=== PATIENT | male | born 1970 | race Caucasian/White ===

== ENCOUNTER 2019-10-12 10:19 | Outpatient (CLI) | payer MEDICARE, MEDICAID, SELFPAY | END 2019-10-12 10:39 | PROVIDERS: PCP Internal Medicine; Visit Provider Nurse Practitioner Family | DX: F11.19 Opioid abuse with unspecified opioid-induced disorder (principal); R94.31 Abnormal electrocardiogram [ECG] [EKG]; I25.2 Old myocardial infarction | CPT/HCPCS: 93005; 93010 ==

== ENCOUNTER 2019-12-29 00:28 | Emergency (ER) | payer MEDICARE, MEDICAID, SELFPAY ==
[2019-12-29 00:43] VITALS: BP 158/85; PULSE 50; RESP 16; TEMP 36.7; O2SAT 100
--- NOTE | 2019-12-29 00:55 | W.ED.GENAD ---
Discharge Plan Disposition Patient Disposition: HOME Condition: Good Discharge Details Chief Complaint: Headache Clinical Impression: Migraine, Headache Primary Care Provider: Otis Irwin ED Provider: Agapito Maynard Home Meds and New Rx's Prescriptions: Continued sumatriptan succinate 100 mg tablet 100 mg PO PRN PRN (Reason: Headache) RF: 0 methadone 10 mg Tablet 115 mg PO DAILY RF: 0 Discharge Instructions Instructions: General Headache (ED) Additional Instructions: At this time your headache seems consistent with prior migraines. As it has resolved this is reassuring. However if at any point you do change your mind we can always perform the CT scan we discussed together. Please drink plenty fluids at home. Avoid preserved meats. If you notice any worsening of your symptoms, or any new symptoms such as vomiting, diarrhea, fever, chills, shortness of breath, chest pain, numbness, weakness, or fainting , please return immediately to the emergency department for reevaluation. Please follow up with your primary care provider as soon as possible for reassessment and reevaluation. As always, it was a pleasure participating in your medical care today. Referrals: Otis Irwin [Primary Care Provider] - Medical Decision Making 49-year-old male with a past medical history of cluster headaches, who takes sumatriptan, who states that he has had an extensive work-up for his headaches in the past, presents today for evaluation of headache. Patient states that this evening headache came on, it was not thunderclap, but it did come on rather quickly which she states is classic for his headaches. Made worse with light and loud noise. Improved by nothing. He describes it as pain on the right side of his head. Symptoms began just an hour or so ago. Symptoms not relieved by medication at home. The patient denies any headache red flags of worst headache of life, thunderclap headache, neck pain, fever, chills, concerning family history of polycystic kidney disease, Marfan syndrome, Nayan-Danlos syndrome, abdominal aortic aneurysm, aortic dissection, or intracranial aneurysm. Patient states that this headache is identical to previous headaches. Physical exam demonstrates no nuchal rigidity, no clinical evidence of meningitis. No concerning red flags. No neurologic deficits. Although the patient states that he has had multiple recent imaging studies, I cannot find any here. I did discuss imaging options for the patient and at this time through notable discussion, weighing the risks and benefits, and a shared decision making process the patient has refused imaging at this time. Patient is of an appropriate age to make decisions. The patient is of sound mind, appears clinically sober, and has capacity to make decisions by my clinical exam. The patient made it exquisitely clear that he feels that his symptoms are consistent with his normal headaches and he does not require repeat imaging of the multiple images he has had in the past. Respecting the patient's wishes we will hold off on imaging. Currently signs and symptoms appear clinically inconsistent with intracranial bleed, aneurysm, meningitis. Signs and symptoms are clinically consistent with migraine headache. 1:43 AM Patient has complete resolution of his symptoms. Repeat neurologic exam shows no focal neurologic deficits. Patient requesting to go home. Patient will be discharged. Signs and symptoms clinically consistent with migraine headache inconsistent with acute life-threatening intracranial etiology. I have extensively reviewed the treatment plan and discharge instructions with the patient. I have addressed all patient concerns at this time. The patient was made aware of what symptoms to monitor for that would warrant a return to the emergency department. Discussed the plan with the patient, they demonstrate verbal understanding and agreement with our assessment and plan at this time. HPI General Date/Time Provider Initiated Documentation: 12/29/19 00:40. HPI Narrative: 49-year-old male with a past medical history of cluster headaches, who takes sumatriptan, who states that he has had an extensive work-up for his headaches in the past, presents today for evaluation of headache. Patient states that this evening headache came on, it was not thunderclap, but it did come on rather quickly which she states is classic for his headaches. Made worse with light and loud noise. Improved by nothing. He describes it as pain on the right side of his head. Symptoms began just an hour or so ago. Symptoms not relieved by medication at home. The patient denies any headache red flags of worst headache of life, thunderclap headache, neck pain, fever, chills, concerning family history of polycystic kidney disease, Marfan syndrome, Nayan-Danlos syndrome, abdominal aortic aneurysm, aortic dissection, or intracranial aneurysm. Patient states that this headache is identical to previous headaches. Related Data Home Medications Medication Instructions Recorded Confirmed methadone 115 mg PO DAILY 12/29/19 12/29/19 sumatriptan succinate 100 mg PO PRN PRN 12/29/19 12/29/19 Allergies Allergy/AdvReac Type Severity Reaction Status Date / Time No Known Allergies Allergy Unverified 12/29/19 00:46 General Stated Complaint: Headache KERA: 3 Review of Systems All systems reviewed & are unremarkable except as noted in HPI and below PFSH Social History Smoking/Tobacco Use Status: Current-Occasional Alcohol Intake: former Substance use type: former substance user Do you feel safe at home: Yes Do you feel safe in your relationship?: Yes Exam Narrative Exam Narrative: 1.Const: Well-nourished, Well-developed, appearing stated age 2.Eyes: PERRL, no conjunctival injection, and symmetrical lids. 3.ENT: Atraumatic external nose and ears. Moist MM. Neck: Symmetric, trachea midline, No thyromegaly. Patient demonstrates good movement of cervical neck. There is no nuchal rigidity, no nuchal tenderness. Patient is able to flex the neck without any difficulty or significant pain. Negative Kernig's and Brudzinski sign. 4.CVS: +S1/S2, No murmurs or gallops. Peripheral pulses 2+ and equal in all extremities. Brisk capillary refill in all extremities. 5.RESP: Unlabored respiratory effort. Clear to auscultation bilaterally. No wheezes rales or rhonchi 6.GI: Soft, Nontender/Nondistended, No hepatosplenomegaly. No guarding or rebound. 7.MSK: Normocephalic/Atraumatic, Extremities w/o deformity or ttp No cyanosis or clubbing, Normal movement of all extremities 8.Skin: Warm, Dry. No rashes or lesions. 9.Neuro: community organization aide II-XII grossly intact. Sensation grossly intact, no focal neurologic deficits. All 6 cardinal planes of vision are fully intact. No evidence of rotatory or vertical nystagmus. The patient demonstrated a normal fjfzbr-gjny-rhpxnp, good dexterity. There was no evidence of dysdiadochokinesia. Patient was able to ambulate without difficulty. There was no wide-based gait. Romberg testing was normal. Wsdu-vs-lliv testing was normal. Sensation was intact bilaterally as well as muscle strength bilaterally for all extremities. Patient was able to verbalize butter cup with no slurring, or miss pronunciation. 10.Psych: (AAO) x3. Appropriate mood and affect Course Vital Signs Vital signs: Vital Signs Temperature 36.7 C 12/29/19 00:43 Pulse 50 L 12/29/19 00:43 Respiratory Rate 16 12/29/19 00:43 Blood Pressure 158/85 H 12/29/19 00:43 Pulse Oximetry 100 12/29/19 00:43 Temperature 36.7 C 12/29/19 00:43 Temperature Source Temporal Artery Scan 12/29/19 00:43 Pulse 50 L 12/29/19 00:43 Respiratory Rate 16 12/29/19 00:43 Blood Pressure 158/85 H 12/29/19 00:43 Blood Pressure Position Sitting 12/29/19 00:43 Pulse Oximetry 100 12/29/19 00:43 Oxygen Delivery Method Room Air 12/29/19 00:43 Oxygen Flow Rate 0 12/29/19 00:43 Pain Level 8 12/29/19 00:43
[2019-12-29] MEDS: Normal Saline 1,000 ML 1000 ML IV (00:57)
[2019-12-29] MEDS: Ketorolac 30 MG/ML VIAL IVP (00:57)
[2019-12-29] MEDS: diphenhydrAMINE 50 MG/ML VIAL 25 MG IVP (00:59)
[2019-12-29] MEDS: methylPREDNISolone SUCC 125 MG VIAL IVP (01:01)
[2019-12-29] MEDS: Prochlorperazine 10 MG/2 ML VIAL IVP (01:02)
[2019-12-29 01:45] VITALS: PULSE 60; RESP 16; O2SAT 99
== END 2019-12-29 01:47 | disposition home or self-care (01) ==
PROVIDERS: Emergency Provider Student in an Organized Health Care Education/Training Program; PCP Internal Medicine
DX: G43.909 Migraine, unspecified, not intractable, without status migrainosus (principal)
CPT/HCPCS: 96361; 96374; 96375; 99284; 99283; J0780; J1200; J1885; J2930

== ENCOUNTER 2021-06-16 14:37 | Emergency (ER) | payer MEDICARE, MEDICAID, SELFPAY ==
[2021-06-16] VITALS (42 sets, daily range): BP systolic 91–141; BP diastolic 51–75; PULSE 39–61; RESP 8–24; TEMP 36.5–36.8; O2SAT 93–100
--- NOTE | 2021-06-16 14:30 | RT.EKG_ITS ---
APPROVED REPORT Exam: Resting ECG Reason for Exam: chest pain Patient Location: E HR:56 bpm ECG Measurements Heart Rate 56 AXIS FL 142 P 63 QRSd 80 QRS 54 QT 450 T 56 QTc 434 Conclusion Sinus bradycardia...rate< 60. Sinus. No STEMI. I have reviewed and interpreted ECG and agree with software generated interpretation.
--- NOTE | 2021-06-16 14:45 | RT.EKG_ITS ---
APPROVED REPORT Exam: Resting ECG Reason for Exam: [facility] Patient Location: E HR:45 bpm ECG Measurements Heart Rate 45 AXIS AZ 167 P 52 QRSd 81 QRS 59 QT 510 T 58 QTc 428 Conclusion Sinus bradycardia...rate< 60 Atrial premature complex...SV complex w/ short R-R interval. Sinus. No STEMI. I have reviewed and interpreted ECG and agree with software generated interpretation.
[2021-06-16 15:15] LABS: Abs Immature Grans 0.01 10^3/uL (0.0-0.06); Absolute Basophil Count 0.04 10^3/uL (0.0-0.2); Absolute Eosinophil Count 0.17 10^3/uL (0.0-0.7); Absolute Monocyte Count 0.43 10^3/uL (0.1-0.8); Absolute Neutrophil Count 4.17 10^3/uL (1.2-6.7); Basophils % 0.6; Eosinophils % 2.6; HGB 12.7 g/dL (13.5-17.5); Immature Grans % 0.2; Lymphocytes % 27.2; MCH 30.3 pg (27.0-33.0); MCHC 32.6 % (32.0-36.0); MCV 93.1 fL (80-95); MPV 10.4 fL (8.0-11.0); Monocytes % 6.5; Neutrophils % 62.9; Nucleated RBC 0 %; Platelet Count 169 10^3/uL (130-400); RBC 4.19 10^6/uL (4.36-5.78); RDW-SD 41.6 fL; WBC 6.62 10^3/uL (4.4-10.8)
[2021-06-16 15:27] LABS: ALT 23 U/L (16-63); AST 26 U/L (15-37); Albumin 3.7 g/dL (3.4-5.0); Alkaline Phosphatase 81 U/L (46-116); Anion Gap 7.2 mmol/L (3-11); BUN 12 mg/dL (7-18); Bilirubin, Total 0.2 mg/dL (0.2-1.0); CO2 30.8 mmol/L (21.0-32.0); CREATININE 0.9 mg/dL (0.70-1.30); Calcium 8.8 mg/dL (8.5-10.1); Chloride 103 mmol/L (98-107); Glucose 121 mg/dL (74-106); Magnesium 2.1 mg/dL (1.8-2.4); Potassium 3.8 mmol/L (3.5-5.1); Sodium 141 mmol/L (136-145); Total Protein 7.5 g/dL (6.4-8.2); Troponin I < 50 ng/L (<or=60)
[2021-06-16] MEDS: ACETAMINOPHEN 1,000 MG/100 ML BTL 400 MG IVPB (15:37)
--- NOTE | 2021-06-16 15:41 | NUR.NOTE ---
pt not wanting to wait around for additional testing and evaluation provider aware Nursing Note:
[2021-06-16 15:54] LABS: D-Dimer 619 ng/mlFEU (<500)
--- NOTE | 2021-06-16 16:00 | DI.CT_ITS ---
Exam(s) CT CHEST PE CTA EXAM: CT CHEST PE CTA CLINICAL HISTORY: left chest pain. TECHNIQUE: Imaging Protocol: Axial CT angiography was performed with multi-slice acquisition and mu lti-planar and/or 3D reconstructions. CONTRAST MATERIAL: Intravenous: Omnipaque 350 Contrast volume:100 cc COMPARISON: No exams were available for comparison FINDINGS: Pulmonary Arteries: No evidence of filling defect to suggest pulmonary emboli. Tracheobronchial tree: Mucous plugging right lower lobe segmental bronchus. Mediastinum and Elizabeth: No dominant adenopathy or fluid collection. Pulmonary parenchyma: Somewhat limited evaluation due to dependent changes and respiratory motion. N o infiltrate. Mild emphysematous changes peripherally. No consolidation or dominant measurable mass . Pleura: No pneumothorax. Trace left pleural effusion. Heart: The heart is not dilated. Mild coronary artery calcifications are seen. Aorta: Thoracic aorta non-dilated. No aneurysm. No dissection. Upper abdomen: Increased stool, otherwise unremarkable. Bones: Unremarkable for age. IMPRESSION: No evidence of pulmonary embolism. Mucous plugging right lower lobe segmental bronchus. Dependent c hanges. No infiltrate... RADIATION DOSE DELIVERED: 312.43mGy.cm Total DLP DATA REPOSITORY: All CT scans at this facility are submitted to the National Radiology Data Registry (NRDR) Dose Index Registry (DIR) with the [employer] (ACR). RADIATION OPTIMIZATION: All CT scans at this facility use at least one of these dose optimization te chniques: automated exposure control; mA and/or kV adjustment per patient size (includes targeted exa ms where dose is matched to clinical indication); or iterative reconstruction.
--- NOTE | 2021-06-16 16:06 | W.ED.GENAD ---
Discharge Plan Disposition Patient Disposition: HOME Condition: Stable Discharge Details Clinical Impression: Pleural effusion, Pleuritic chest pain, Bradycardia Primary Care Provider: Otis Irwin ED Provider: Mavis Hutchison Home Meds and New Rx's Prescriptions: No Action sumatriptan succinate 100 mg tablet 100 mg PO PRN PRN (Reason: Headache) RF: 0 methadone 10 mg Tablet 175 mg PO DAILY RF: 0 Discharge Instructions Instructions: Albuterol (By breathing), Chest Pain (ED), Pleural Effusion (ED) Additional Instructions: Use albuterol inhaler 1 to 2 puffs every 4-6 hours as needed. Today your heart rate was relatively low dropping into the 30s. Please return to the ER immediately if you have any increased lightheadedness, dizziness, worsening chest pain, fever or any concerns. Follow up with primary care provider in 3-5 days. Return to ED sooner if any worsening or concerns. Increase oral fluids. Please take Tylenol or Ibuprofen with food every 4-6 hours as needed for pain and swelling. Referrals: Otis Irwin [Primary Care Provider] - 3 days Discharge Data Discharge Date/Time-TO BE ENTERED AT DEPARTURE: 06/16/21 18:30 Medical Decision Making <IKE Gomez - Last Filed: 06/17/21 10:48> D-dimer positive at 20, will order CTA, patient consented EKG and troponin do not show acute abnormality, as patient's pain has been present for the past several days, no indication for repeat troponin as pain is pleuritic and reproducible with symptoms present for the past 4 days I note that you Gisselle Martin pending CTA If CT is negative, will recommend ibuprofen and Tylenol as needed for pain <Mavis Hutchison - Last Filed: 06/16/21 19:08> Care assumed from provider (IKE Gomez) Please see their initial HPI, PE, and documentation. Discussed patient details and case and pending workup and disposition. Patient is hemodynamically stable, and alert and oriented. Patient is slightly bradycardic heart rate of 39 blood pressure is soft intermittently. When patient evaluated he reports that he feels fine. At this time we are awaiting CT chest result. Patient is requesting to be discharged. COMPARISON: No relevant prior studies available. FINDINGS: Pulmonary arteries: Hounsfield attenuation of the right pulmonary artery measures 504 and therefore this study is diagnostic. No pulmonary emboli seen. Aorta: Unremarkable. No aneurysm or dissection. Lungs: Minor peripheral cystic changes are seen within the right lung. There is bibasilar dependent atelectasis. Likely mucous plugging is present within a right lower lobe bronchus, series 4, image 31. Pleural spaces: There is a small left pleural effusion. No pneumothorax. Mediastinum: Visualized portion of the thyroid is unremarkable. Heart size is normal. No pericardial thickening or effusion. Esophagus is normal in appearance. Lymph nodes: No mediastinal lymphadenopathy. Superior abdomen: Visualized portion of the liver, gallbladder, adrenal glands, kidneys, spleen, minimally dilated stomach and bowel are normal in appearance. No superior abdominal lymphadenopathy, free air or significant. Bones/joints: No acute osseous injury or underlying osseous mass. There may be a right mid clavicle fixation device versus streak artifact from IV contrast. Soft tissues: Unremarkable. IMPRESSION: 1. No pulmonary emboli. 2. Likely mucous plugging seen within a right lower lobe bronchus. 3. Small left pleural effusion. We will send patient home with albuterol inhaler. Discuss strict return instructions and follow with PCP. This text was generated using [employer] system, please disregard any oddities of phrase or misspellings. HPI <IKE Gomez - Last Filed: 06/17/21 10:48> General Mode of arrival: ambulatory. Date/Time Provider Initiated Documentation: 06/16/21 14:53. Limitations to Documentation: no limitations. Information obtained by: patient. HPI Narrative: This 50-year-old male presents with left-sided chest pain. He has been present for the past 3 or 4 days. He states that he has pain with palpation but denies any trauma. He denies any rashes or lesions. He denies any fever or chills. He denies any cough or shortness of breath. He states the pain is exacerbated with breathing. He denies hemoptysis. He denies history of coagulopathy, recent flights, surgeries, long drives. Denies history of IV drug abuse. Related Data Home Medications Medication Instructions Recorded Confirmed methadone 175 mg PO DAILY 12/29/19 06/16/21 sumatriptan succinate 100 mg PO PRN PRN 12/29/19 06/16/21 Allergies Allergy/AdvReac Type Severity Reaction Status Date / Time No Known Allergies Allergy Unverified 06/16/21 14:48 General Stated Complaint: Chest Pain KERA: 2 Review of Systems <IKE Gomez Last Filed: 06/17/21 10:48> All systems reviewed & are unremarkable except as noted in HPI and below PFSH <IKE Gomez Last Filed: 06/17/21 10:48> All Active Problems (Updated 06/16/21 @ 18:20 by Mavis Hutchison) Pleural effusion (Acute) Pleuritic chest pain (Acute) Bradycardia (Acute) Social History Smoking/Tobacco Use Status: Current every day Tobacco Type: cigarettes Smoking risk assessment performed?: Yes Alcohol Intake: former Substance use type: former substance user Details: methadone clinic Do you feel safe at home: Yes Do you feel safe in your relationship?: Yes Exam <IKE Gomze Last Filed: 06/17/21 10:48> Const General: cooperative, comfortable and no acute distress Chest Chest/axillae images: 1. Reproducible chest wall tenderness, no rashes or lesions, no crepitus Resp Effort & Inspection: normal respiratory effort Auscultation: clear to auscultation bilaterally Cardio Rate: regular rate Rhythm: regular rhythm GI Other: Nontender abdominal exam Skin General skin exam: no rashes or lesions noted Neuro General: patient alert and patient oriented x3 Course <IKE Gomez Last Filed: 06/17/21 10:48> Vital Signs Vital signs: Vital Signs Temperature 36.8 C 06/16/21 14:43 Pulse 59 L 06/16/21 14:43 Respiratory Rate 16 06/16/21 14:43 Pulse Oximetry 97 06/16/21 14:43 Temperature 36.8 C 06/16/21 15:37 Temperature Source Temporal Artery Scan 06/16/21 14:43 Pulse 54 L 06/16/21 14:48 Pulse 53 L 06/16/21 15:20 Respiratory Rate 16 06/16/21 15:20 Respiratory Effort Non-Labored 06/16/21 14:49 Respiratory Depth Normal 06/16/21 14:49 Respiratory Pattern Normal 06/16/21 14:49 Blood Pressure 121/75 06/16/21 14:48 Blood Pressure Mean 85 06/16/21 14:48 Blood Pressure Position Sitting 06/16/21 14:43 Pulse Oximetry 95 06/16/21 15:20 Oxygen Delivery Method Room Air 06/16/21 14:43 Oxygen Flow Rate 0 06/16/21 14:43 Pain Level 8 06/16/21 15:37 Lab/Test Results Lab/Test Results: Laboratory Tests Range/Units 06/16/21 06/16/21 06/16/21 14:58 14:58 14:58 WBC (4.4-10.8) 10^3/uL 6.62 RBC (4.36-5.78) 10^6/uL 4.19 L Hgb (13.5-17.5) g/dL 12.7 L Hct (40.0-50.0) % 39.0 L MCV (80-95) fL 93.1 MCH (27.0-33.0) pg 30.3 MCHC (32.0-36.0) % 32.6 RDW (11.8-14.1) % 12.0 Plt Count (130-400) 10^3/uL 169 MPV (8.0-11.0) fL 10.4 Immature Gran % 0.2 Neutrophils % 62.9 Lymphocytes % 27.2 Monocytes % 6.5 Eosinophils % 2.6 Basophils % 0.6 Nucleated RBC % % 0 Absolute Neutrophils (1.2-6.7) 10^3/uL 4.17 Absolute Lymphocytes (1.2-3.4) 10^3/uL 1.80 Absolute Monocytes (0.1-0.8) 10^3/uL 0.43 Absolute Eosinophils (0.0-0.7) 10^3/uL 0.17 Absolute Basophils (0.0-0.2) 10^3/uL 0.04 D-Dimer (<500) ng/mlFEU 619 H Sodium (136-145) mmol/L 141 Potassium (3.5-5.1) mmol/L 3.8 Chloride (98-107) mmol/L 103 Carbon Dioxide (21.0-32.0) mmol/L 30.8 Anion Gap (3-11) mmol/L 7.2 BUN (7-18) mg/dL 12 Creatinine (0.70-1.30) mg/dL 0.9 Estimated GFR/1.73 m2 (mL/min/1.73m2) >= 60.00 Glucose (74-106) mg/dL 121 H Calcium (8.5-10.1) mg/dL 8.8 Magnesium (1.8-2.4) mg/dL 2.1 Total Bilirubin (0.2-1.0) mg/dL 0.2 AST (15-37) U/L 26 ALT (16-63) U/L 23 Alkaline Phosphatase (46-116) U/L 81 Troponin I (<or=60) ng/L < 50 Total Protein (6.4-8.2) g/dL 7.5 Albumin (3.4-5.0) g/dL 3.7 Sign Out <IKE Gomez - Last Filed: 06/17/21 10:48> Sign Out Data: Sign Out Comment: pending cta and dc, no repeat trop or EKG necessary Last updated by Sofia De Paz PA at 06/16/21 16:40
[2021-06-16] MEDS: Omnipaque 350 MG/ML 100 ML BTL IJ (16:43)
[2021-06-16] MEDS: Normal Saline Flush 10 ML SYR IVP (16:44)
[2021-06-16] MEDS: Normal Saline 500 ML 1000 ML IV (17:10)
--- NOTE | 2021-06-16 17:40 | NUR.NOTE ---
1530: Defib / Pacer pads applied Nursing Note:
--- NOTE | 2021-06-16 18:03 | DI.VRAD_ITS ---
PROCEDURE INFORMATION: Exam: CTA Chest With Contrast Exam date and time: 06/16/2021 4:05 PM Age: 50 years old Clinical indication: Other: SOB TECHNIQUE: Imaging protocol: Computed tomographic angiography of the chest with contrast. 3D rendering (Not supervised by radiologist): MIP and/or 3D reconstructed images were created by the technologist. Radiation optimization: All CT scans at this facility use at least one of these dose optimization techniques: automated exposure control; mA and/or kV adjustment per patient size (includes targeted exams where dose is matched to clinical indication); or iterative reconstruction. Contrast material: OMNIPAQUE 350; Contrast volume: 100 ml; Contrast route: INTRAVENOUS (IV); COMPARISON: No relevant prior studies available. FINDINGS: Pulmonary arteries: Hounsfield attenuation of the right pulmonary artery measures 504 and therefore this study is diagnostic. No pulmonary emboli seen. Aorta: Unremarkable. No aneurysm or dissection. Lungs: Minor peripheral cystic changes are seen within the right lung. There is bibasilar dependent atelectasis. Likely mucous plugging is present within a right lower lobe bronchus, series 4, image 31. Pleural spaces: There is a small left pleural effusion. No pneumothorax. Mediastinum: Visualized portion of the thyroid is unremarkable. Heart size is normal. No pericardial thickening or effusion. Esophagus is normal in appearance. Lymph nodes: No mediastinal lymphadenopathy. Superior abdomen: Visualized portion of the liver, gallbladder, adrenal glands, kidneys, spleen, minimally dilated stomach and bowel are normal in appearance. No superior abdominal lymphadenopathy, free air or significant. Bones/joints: No acute osseous injury or underlying osseous mass. There may be a right mid clavicle fixation device versus streak artifact from IV contrast. Soft tissues: Unremarkable. IMPRESSION: 1. No pulmonary emboli. 2. Likely mucous plugging seen within a right lower lobe bronchus. 3. Small left pleural effusion. Dictated and Authenticated by: Terell Hunter MD. Ordering:MONTRELL Black MD
[2021-06-16 18:26] LABS: Troponin I < 50 ng/L (<or=60)
[2021-06-16] MEDS: Albuterol HFA 8 GM 60 PUFF INH IH (18:26)
[2021-06-16] MEDS: Inhaler, Assist Device 1 EACH MC (18:27)
== END 2021-06-16 18:30 | disposition home or self-care (01) ==
PROVIDERS: Physician Assistant; Emergency Provider Registered Nurse Emergency; PCP Internal Medicine
DX: J90 Pleural effusion, not elsewhere classified (principal); R07.1 Chest pain on breathing; R00.1 Bradycardia, unspecified
CPT/HCPCS: 36415; 71275; 80053; 93005; 96361; 96374; 99285; 83735; 84484; 85025; 85379; 93010; 99284; J0131; J3490

== ENCOUNTER 2021-12-12 02:51 | Outpatient (CLI) | payer MEDICARE, MEDICAID, SELFPAY ==
--- NOTE | 2021-12-12 08:15 | RT.EKG_ITS ---
APPROVED REPORT Exam: Resting ECG Reason for Exam: High Risk Medication Use Patient Location: O HR:59 bpm ECG Measurements Heart Rate 59 AXIS MN 134 P 68 QRSd 97 QRS 58 QT 441 T 45 QTc 437 Conclusion Sinus rhythm...normal P axis, V-rate 50- 99 Normal Electrocardiogram
== END 2021-12-12 02:52 | disposition home or self-care (01) ==
LOC: RT 02:52
PROVIDERS: PCP Internal Medicine; Visit Provider Family Medicine

== ENCOUNTER 2022-01-09 17:53 | Emergency (ER) | payer MEDICARE, MEDICAID, SELFPAY ==
[2022-01-09 17:57] VITALS: BP 124/62; PULSE 63; RESP 14; TEMP 36.8; O2SAT 96
--- NOTE | 2022-01-09 18:03 | ED.GENADUL_ITS ---
Discharge Plan Disposition Patient Disposition: HOME Condition: Stable Discharge Details Clinical Impression: Boil of upper arm and forearm Primary Care Provider: Otis Irwin ED Provider: Tremayne Vaughn Home Meds and New Rx's Prescriptions: New sulfamethoxazole-trimethoprim [Bactrim DS] 800-160 mg tablet 1 tab PO BID 7 Days Qty: 14 0RF Continued methadone 10 mg Tablet 140 mg PO DAILY Discharge Instructions Instructions: Folliculitis (ED) Additional Instructions: Apply Bactroban ointment to area twice daily for 7 to 10 days time. Take antibiotics as prescribed until finished. Return for worsening or spreading infection or any other acute concern Medical Decision Making 51-year-old male with 2 areas of probable early boil/abscess formation on his left forearm. Not amenable to drainage. Consistent with cellulitis. We will treat him with oral and topical antibiotics. Understands home care. He is stable for discharge to home. HPI General Mode of arrival: ambulatory . Date/Time Provider Initiated Documentation: 01/09/22 17:55 . Limitations to Documentation: no limitations . Information obtained by: patient . History of Present Illness 51 year old M presents to the emergency department with the chief complaint of Left arm rash/ lesions, described as mild, Quality is described as dull and constant, and is localized to the left and upper extremity. Patient reports no radiation. Patient started experiencing this day(s) and it has been constant. No relieving factors improve symptom(s), No exacerbating factors reported . Patient notes denies fever/chills, loss of appetite and malaise. Related Data Home Medications Medication Instructions Recorded Confirmed methadone 10 mg tablet 140 mg PO DAILY 12/29/19 01/09/22 sulfamethoxazole 800 1 tab PO BID 7 days #14 tabs 01/09/22 mg-trimethoprim 160 mg tablet (Bactrim DS) Previous Rx's Medication Instructions Recorded sulfamethoxazole 800 1 tab PO BID 7 days #14 tabs 01/09/22 mg-trimethoprim 160 mg tablet (Bactrim DS) Allergies Allergy/AdvReac Type Severity Reaction Status Date / Time No Known Allergies Allergy Unverified 01/09/22 17:59 General Stated Complaint: RashLesion KERA: 4 Review of Systems Narrative: No fever, chills, vomiting. Otherwise well. 4 systems reviewed and otherwise - [facility] All Active Problems (Updated 01/09/22 @ 18:06 by Tremayne Vaughn MD) Boil of upper arm and forearm (Acute) Social History Smoking/Tobacco Use Status: Current every day Tobacco Type: cigarettes Smoking risk assessment performed?: Yes Alcohol Intake: former Substance use type: former substance user Details: methadone clinic Do you feel safe at home: Yes Do you feel safe in your relationship?: Yes Exam Narrative Exam Narrative: GEN: awake, alert, oriented 3. Pleasant, well groomed, interactive. HEAD: Normocephalic, atraumatic EYES: PERRL, EOMI CHEST/RESP: No respiratory distress EXT: Full ROM, the left forearm on the dorsal aspect has 2 areas of unroofed lesions that are erythematous and tender. Slight area of crusting present on the most distal Neuro: Grossly normal neurologic exam, conversant, interactive. Psych: Speech fluent, thoughts congruent, affect normal Course Vital Signs Vital signs: Vital Signs Temperature 36.8 C 01/09/22 17:57 Pulse 63 01/09/22 17:57 Respiratory Rate 14 01/09/22 17:57 Blood Pressure 124/62 01/09/22 17:57 Pulse Oximetry 96 01/09/22 17:57 Temperature 36.8 C 01/09/22 17:57 Temperature Source Temporal Artery Scan 01/09/22 17:57 Pulse 63 01/09/22 17:57 Respiratory Rate 14 01/09/22 17:57 Respiratory Effort Non-Labored 01/09/22 18:00 Blood Pressure 124/62 01/09/22 17:57 Blood Pressure Position Sitting 01/09/22 17:57 Pulse Oximetry 96 01/09/22 17:57 Oxygen Delivery Method Room Air 01/09/22 17:57 Oxygen Flow Rate 0 01/09/22 17:57 Pain Level 0 01/09/22 17:57
== END 2022-01-09 18:35 | disposition home or self-care (01) ==
PROVIDERS: Emergency Provider Emergency Medicine; PCP Internal Medicine
DX: L02.424 Furuncle of left upper limb (principal); F17.210 Nicotine dependence, cigarettes, uncomplicated
CPT/HCPCS: 99283

== ENCOUNTER 2022-04-13 07:05 | Emergency (ER) | payer MEDICARE, MEDICAID, SELFPAY ==
[2022-04-13 07:07] VITALS: BP 136/75; PULSE 64; RESP 17; TEMP 37.1; O2SAT 98
--- NOTE | 2022-04-13 07:19 | ED.GENADUL_ITS ---
Discharge Plan Disposition Patient Disposition: HOME Condition: Improving Discharge Details Clinical Impression: Odontalgia Primary Care Provider: Otis Irwin ED Provider: Tremayne Vaughn Home Meds and New Rx's Prescriptions: New penicillin V potassium 500 mg tablet 500 mg PO TID 10 Days Qty: 30 0RF Continued methadone 10 mg Tablet 140 mg PO DAILY Discharge Instructions Instructions: Toothache (ED) Additional Instructions: Our care managers will arrange a follow-up for you to establish primary care. Warm salt water gargles to speed healing. Take penicillin as prescribed until finished. Tylenol if needed for pain. Medical Decision Making 51-year-old male presents from home. He has generally poor dentition and previous dental infections. Now with left upper dental pain. No evidence of abscess. We will treat with a course of penicillin. He also asked me to evaluate left axilla bumps which feel like palpable lymph nodes. Discussed with him establishing primary care for follow-up. He understands home care and indications to seek reevaluation HPI General Mode of arrival: ambulatory . Date/Time Provider Initiated Documentation: 04/13/22 07:16 . Limitations to Documentation: no limitations . Information obtained by: patient . History of Present Illness 51 year old M presents to the emergency department with the chief complaint of Left upper dental pain, poor dentition, left armpit bumps, described as mild, Quality is described as dull and constant, and is localized to the mouth. Patient reports no radiation. Patient started experiencing this day(s) and it has been constant. No relieving factors improve symptom(s), No exacerbating factors reported . Patient notes denies fever/chills, headaches, loss of appetite and malaise. Patient did receive the following treatments prior to arrival, none Related Data Home Medications Medication Instructions Recorded Confirmed methadone 10 mg tablet 140 mg PO DAILY 12/29/19 04/13/22 penicillin V potassium 500 mg 500 mg PO TID 10 days #30 tabs 04/13/22 tablet Previous Rx's Medication Instructions Recorded penicillin V potassium 500 mg 500 mg PO TID 10 days #30 tabs 04/13/22 tablet Allergies Allergy/AdvReac Type Severity Reaction Status Date / Time No Known Allergies Allergy Unverified 04/13/22 07:11 General Stated Complaint: DentalOral KERA: 4 Review of Systems Narrative: GEN: awake, alert, oriented 3. Pleasant, well groomed, interactive. HEAD: Normocephalic, atraumatic ENT: Mucous membranes moist, oropharynx poor dentition throughout with numerous dental caries and broken teeth, no buccal or lingual swelling present, External ear exam unremarkable EYES: PERRL, EOMI NECK: Full ROM, no ADITYA, no menigismus CHEST/RESP: No respiratory distress EXT: Full ROM, no edema, few scant palpable lymph nodes left axilla Neuro: Grossly normal neurologic exam, conversant, interactive. Psych: Speech fluent, thoughts congruent, affect normal PFSH All Active Problems (Updated 04/13/22 @ 07:22 by Tremayne Vaughn MD) Odontalgia (Acute) Social History Smoking/Tobacco Use Status: Current every day Tobacco Type: cigarettes Smoking risk assessment performed?: Yes Alcohol Intake: former Substance use type: former substance user Details: methadone clinic Do you feel safe at home: Yes Do you feel safe in your relationship?: Yes Course Vital Signs Vital signs: Vital Signs Temperature 37.1 C 04/13/22 07:07 Pulse 64 04/13/22 07:07 Respiratory Rate 17 04/13/22 07:07 Blood Pressure 136/75 04/13/22 07:07 Pulse Oximetry 98 04/13/22 07:07 Temperature 37.1 C 04/13/22 07:07 Temperature Source Oral 04/13/22 07:07 Pulse 64 04/13/22 07:07 Respiratory Rate 17 04/13/22 07:07 Respiratory Effort Non-Labored 04/13/22 07:10 Blood Pressure 136/75 04/13/22 07:07 Blood Pressure Position Sitting 04/13/22 07:07 Pulse Oximetry 98 04/13/22 07:07 Oxygen Delivery Method Room Air 04/13/22 07:07 Oxygen Flow Rate 0 04/13/22 07:07 Pain Level 7 04/13/22 07:10
--- NOTE | 2022-04-13 07:48 | NUR.NOTE ---
Nursing Note: Referral given to Care Management needs PCP; establish care; routine follow up.
== END 2022-04-13 07:26 | disposition home or self-care (01) ==
LOC: ER 07:31
PROVIDERS: Emergency Provider Emergency Medicine; PCP Internal Medicine
DX: R68.84 Jaw pain (principal); R22.32 Localized swelling, mass and lump, left upper limb
CPT/HCPCS: 99283

== ENCOUNTER 2022-04-27 21:41 | Emergency (ER) | payer MEDICARE, MEDICAID, SELFPAY ==
[2022-04-27 21:44] VITALS: BP 112/84; PULSE 65; RESP 15; TEMP 36.5; O2SAT 98
--- OUTSIDE RECORDS SUMMARY | 2022-04-27 21:46 | XMS_ITS | Encounter Summary ---
:1970 Author Organization Formerly [facility] [place] [address] Care Team Providers Name Role Phone Otis Irwin MD Primary Care Provider Reason for Visit Reason Onset Date Comments Other 03/10/2013 Inform about oxygen claim status Encounter Details Date Type Department Care Team Description 03/10/2013 Telephone Neurology at [facility] Wilner Vicente MD Other (Inform about [facility] oxy gen claim status) [place] [address] NEUROLOGY DEPT. [phone] [place], [place] [address] (Wo rk) Social History Tobacco Use Types Packs/Day Years Used Date Smoking Tobacco: Every Day Cigarettes Smokeless Tobacco: Never Alcohol Use Standard Drinks/Week Comments No 0 (1 standard drink = 0.6 oz pure alcoho l) Sex Assigned at Date Recorded Not on file documented as of this encounter Miscellaneous Notes Telephone Encounter - Britta Dukes LPN - 03/16/2013 2:24 PM EDT Contacted Medicare DME @ , and accounting representative stated to go to [email or web address], and send an inquiry form submission, and include Dr. Aguilar's name in the form. Inquiry form submission sent, and message left for patient to call back to update status of claim denial for oxygen. Telephone Encounter - Wilner Vicente MD - 03/15/2013 3:45 PM EDT I am sorry but here is my policy: I am very happy to do peer to peer discussions about my patients insurance coverage. But I need to have the name of the infertility medical assistant I will be speaking with along with a direct number that does notrequire navigating a multi step list of options. And the infertility medical assistant must have had some experience or knowledge in headache medicine. If that is not possible I really am not able to help, and the next step will be for patients to call their insurance company themselves or better yet have their employment attorney call. Thanks for your patience. Mo Telephone Encounter - Chelo Woodall - 03/11/2013 2:07 PM EDT Felecia calling from [facility] asking for update from call yesterday. Medicare is denying this pt RX for oxygen because of the dx being used, cluster headaches. Pt's is calling [facility] saying that Dr. Vicente told them he can get this pushed thru no matter what. Felecia would like a call back today if possible. Telephone Encounter - Nazanin Hare RN - 03/10/2013 2:12 PM EDT I spoke to Eldon at [facility] To discuss what additional information is needed for the oxygen order. Telephone Encounter - Alexandria Paredes - 03/10/2013 12:20 PM EDT Eldon from [facility] needs a script and more information in order to provide the patient with oxygen. documented in this encounter Plan of Treatment Not on filedocumented as of this encounter Visit Diagnoses Not on filedocumented in this encounter Care Teams Bag Printer Relationship Specialty Start Date End Date Otis Irwin MD PCP - General 06/22/12 (work) documented as of this encounter
--- OUTSIDE RECORDS SUMMARY | 2022-04-27 21:46 | XMS_ITS | Encounter Summary ---
:1970 [place] [address] Care Team Providers Name Role Phone Anoop Bowden MD Primary Care Provider [phone] Encounter Details Date Type Department Care Team Description 08/02/2010 Office Visit Orthopaedics at [facility] Delfino Maier MD [facility] [place] [address] ORTHOPAEDIC SURGERY [phone] [place], [place] [address] (Wo rk) Social History Tobacco Use Types Packs/Day Years Used Date Smoking Tobacco: Never Assessed Sex Assigned at Date Recorded Not on file documented as of this encounter Plan of Treatment Not on filedocumented as of this encounter Visit Diagnoses Not on filedocumented in this encounter Care Teams Pacs Administrator Relationship Specialty Start Date End Date Anoop Bowden MD PCP - General 05/07/10 06/21/12 4 [place] [address] documented as of this encounter
--- OUTSIDE RECORDS SUMMARY | 2022-04-27 21:46 | XMS_ITS | Encounter Summary ---
:1970 Author Organization [facility] [place] [address] Care Team Providers Name Role Phone Otis Irwin MD Primary Care Provider Encounter Details Date Type Department Care Team Description 04/18/2013 Follow-Up Neurology at [facility], DR VALERY Coronel (Primary Dx); [facility] Junior Mcfarland APRN [facility] [place] [address] Cluster headache; [place] [address] Social History Tobacco Use Types Packs/Day Years Used Date Smoking Tobacco: Every Day Cigarettes Smokeless Tobacco: Never Alcohol Use Standard Drinks/Week Comments No 0 (1 standard drink = 0.6 oz pure alcoho l) Sex Assigned at Date Recorded Not on file documented as of this encounter Last Filed Vital Signs Vital Sign Reading Time Taken Comments Blood Pressure 100/59 04/18/2013 2:17 PM EST Pulse 63 04/18/2013 2:17 PM EST Temperature - - Respiratory Rate - - Oxygen Saturation - - Inhaled Oxygen Concentration - - Weight 89.4 kg (197 lb) 04/18/2013 2:17 PM EST Height 170.2 cm (5' 7) 04/18/2013 2:17 PM EST Body Mass Index 30.85 04/18/2013 2:17 PM EST documented in this encounter Progress Notes Junior Mcfarland APRN - 04/18/2013 2:28 PM EST CC:This is a 42 y.o. man, who was initially seen by Dr. Vicente and is clinic today for his first follow-up for chronic headaches. ARIANNA Vale has had right sided severe headaches since the age of 33. They are daily and occur 1-4 x dailylasting between 1 and 4 hours. They can awaken him from sleep. They used to occur predominantly in the fall and summer but this pattern has not persisted, with daily HAs. Accompaniments to headaches include nausea, photophobia, phonophobia and lead him to find a dark room or sometimes he becomes very restless. Aura or premonitory symptoms do not occur. Acute treatment for headache is now as follows: dark room, Imitrex oral, Imitrex injections, Exedrinmigraine. Imitrex shots are consistently helpful, but afraid he will run out. Medications Tried: Occipital nerve blocks have not helped (done by Dr Han). Prednisone did not help x2. He thinks Depakote was tried. Oxygen at 10 L/m was sometimes helpful. [place] was not tried. Diagnostic work-up: MRI of brain today: waiting for results PM Multiple back and knee surgeries Family History is non-remarkable for headaches Personal/Psych History: ETOH: none Nicotine use: 1/2 pack daily Caffeine intake: 2-3 cups of coffee daily Occupation: disability due to back/knee Sleeping: hard time falling asleep, has started Trazadone 150mg nightly per PCP but doesn't work Snoring: none Nightmares: none Abuse: none Mood: good Energy: up and down with headaches Subjective: Kavin is here today for follow-up of headaches and MRI results. Since increasing the Verapamil he has since a decrease in his headaches and have been only getting them about every 3 days and are severe in nature. Accompanied with nausea and he has to lay down with these severe headaches. He is not sure if he is taking 120 mg BID or 180 mg BID of the Verapamil. He is not sure if this decrease in his cycle is related to therapy or that his cycle is coming to a end. He actually was able to get a oxygen tank, but his insurance is having him pay $125 fee and also a rental fee. Since this feehas been enforced he probably will not be able to afford the oxygen therapy after this month and it's unfortunate because he gets good relief with the oxygen and imitrex injection. Most of the headaches are right sided and start in his neck occasionally will radiate to the left-side. Denies any new medical issues. Review of systems:chronic head pain as above, neck pain with the headaches, Denies CP, dizziness or light headiness as related to his low BP. All other systems were negative. Objective: Filed Vitals: 04/18/13 1417 BP: 100/59 Pulse: 63 Physical Exam Constitutional: Well-developed, well-nourished, and in no distress. At times anxious because how disabling the headaches can be. Head: Normocephalic and atraumatic. Eyes: EOM are normal. Pupils are equal, round, and reactive to light. No papilledema, +DISPATCHER REFINERY Neck: Normal range of motion. Occipital nerves CHANEL non-tender Cardiovascular: Normal rate and regular rhythm. Pulmonary/Chest: Effort normal and breath sounds normal. Neurologic Exam Mental Status Level of consciousness: alert Cranial Nerves Cranial nerves II through XII intact. CN III, IV, Pupils are equal, round, and reactive to light. Fundi benign Extraocular motions are normal. Motor Exam Muscle bulk: normal Overall muscle tone: normal Strength Strength 5/5 throughout. Sensory Exam Light touch normal. Vibration normal. Proprioception normal. Stereognosis: normal Gait, Coordination, and Reflexes Gait Gait: normal Coordination Romberg: negativeFinger to nose coordination: normal Tandem walking coordination: normal Reflexes Reflexes 2+ except as noted. Right plantar: normal Left plantar: normal Assessment: Migraine without aura features and features of cluster headache (duration, frequency, awakened from sleep, oxygen helped). In sum he seems to have a variant of chronic cluster. 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 Patient will call in to report exactly what strength of Verapamil he is taking at home. Denies lightheadiness and dizziness with low BP. Asked to monitor BP while on therapy. 2. The patient wants better control of his headaches, especially since they are severe in nature anddisabling. Since BP is borderline will not increase Verapamil, but start [place] 150mg nightly and will get lithium level in 2 weeks and EKG externally, patient will have results faxed to office. SE's (GI effects, dizziness, drowsiness or tremor), risk and benefits. 3. Started hydroxyzine 25mg BID prn for nausea/to induce sleep and help with mild/moderate headaches. Cautioned sedation. SE's, risk and benefits discussed. Informed that he can take with Imitrex. 4. Today will get TSH, bmp and lyme antibody (patient stated about 3 years ago was bite by a tick, but denies rash at site) Follow up plan: The patient will follow up in Headache Clinic in 4 weeks and call as needed. At least 25 minutes of this 35 minute face to face visit was spent counseling and therapeutic planning discussing potential adverse effects of all medications were discussed in detail (lithium/hydroxyzine), reasoning for studys. We also discussed non-pharmacological approaches chronic headaches (continue yoga) as well as coping strategies, exclusive of the time spent performing the ONB's. I answered all of the patient's questions and she was comfortable with the plan. documented in this encounter Plan of Treatment Not on filedocumented as of this encounter Visit Diagnoses Diagnosis Migraine - Primary Migraine, unspecified, without mention o f intractable migraine without mention of status migrainosus Cluster headache Cluster headache syndrome, unspecified Hypothyroidism Unspecified hypothyroidism documented in this encounter Care Teams Lacquer Shader Relationship Specialty Start Date End Date Otis Irwin MD PCP - General 06/22/12 documented as of this encounter
--- OUTSIDE RECORDS SUMMARY | 2022-04-27 21:46 | XMS_ITS | Encounter Summary ---
:1970 [place] [address] Care Team Providers Name Role Phone Otis Irwin MD Primary Care Provider Encounter Details Date Type Department Care Team Description 10/18/2015 Telephone Neurology at [facility] Opal Dickinson MD [facility] [place] [address] NEUROLOGY DEPT [phone] [place], [place] [address] (Wo rk) Social History Tobacco Use Types Packs/Day Years Used Date Smoking Tobacco: Every Day Cigarettes Smokeless Tobacco: Never Alcohol Use Standard Drinks/Week Comments No 0 (1 standard drink = 0.6 oz pure alcoho l) Sex Assigned at Date Recorded Not on file documented as of this encounter Miscellaneous Notes Telephone Encounter - Sabrina Nicholas LPN - 10/18/2015 2:09 PM EDT Left message to return call regarding study documented in this encounter Plan of Treatment Not on filedocumented as of this encounter Visit Diagnoses Not on filedocumented in this encounter Care Teams Surgery Consultant Relationship Specialty Start Date End Date Otis Irwin MD PCP - General 06/22/12 documented as of this encounter
--- OUTSIDE RECORDS SUMMARY | 2022-04-27 21:46 | XMS_ITS | Encounter Summary ---
:1970 Author Organization [facility] [address] Care Team Providers Name Role Phone Otis Irwin MD Primary Care Provider Reason for Visit Reason Onset Date Comments Other 04/18/2013 Clarification on med ication Encounter Details Date Type Department Care Team Description 04/18/2013 Telephone Neurology at [facility] Jordi Mcfarland (Clarification on [facility] N medication) [place] [address] NEUROLOGY DEPT. [place], [place] [address] Social History Tobacco Use Types Packs/Day Years Used Date Smoking Tobacco: Every Day Cigarettes Smokeless Tobacco: Never Alcohol Use Standard Drinks/Week Comments No 0 (1 standard drink = 0.6 oz pure alcoho l) Sex Assigned at Date Recorded Not on file documented as of this encounter Miscellaneous Notes Telephone Encounter - Britta Dukes LPN - 04/19/2013 3:45 PM EST Prescription sig read and clarified with pharmacist. Telephone Encounter - Nabila Doe - 04/18/2013 3:20 PM EST Lisa called from [facility] looking for clarification on Hydroxine 25 mg tablets prescription for this patient that was e-scribed today. Please call her to iva. documented in this encounter Plan of Treatment Not on filedocumented as of this encounter Visit Diagnoses Not on filedocumented in this encounter Care Teams Gluer Machine Setup Operator Relationship Specialty Start Date End Date Otis Irwin MD PCP - General 06/22/12 documented as of this encounter
--- OUTSIDE RECORDS SUMMARY | 2022-04-27 21:46 | XMS_ITS | Encounter Summary ---
:1970 Author Organization [facility] [place] [address] Care Team Providers Name Role Phone Otis Irwin MD Primary Care Provider Reason for Visit Reason Onset Date Comments Medication Refill 01/10/2014 Med Refill Encounter Details Date Type Department Care Team Description 01/10/2014 Refill Neurology at [facility] Anoop Carrera MD [facility] [place] [address] NEUROLOGY DEPT. [phone] [place], [place] [address] (Wo rk) Social History Tobacco Use Types Packs/Day Years Used Date Smoking Tobacco: Every Day Cigarettes Smokeless Tobacco: Never Alcohol Use Standard Drinks/Week Comments No 0 (1 standard drink = 0.6 oz pure alcoho l) Sex Assigned at Date Recorded Not on file documented as of this encounter Miscellaneous Notes Telephone Encounter - Britta Dukes LPN - 01/10/2014 4:38 PM EDT Per Junior Mcfarland, [employer]ER[employer] DEVELOPER: Did patient ever get EKG completed if so we did not receive results. Spoke with patient's on the phone, and she stated that has not completed EKG. stated that she will have patient call back to inform which facility he would like requesition faxed to. Telephone Encounter - Sylvia Oliver - 01/10/2014 8:23 AM EDT Patient's called in. She states he has been out of his medication for 3 days now. She states she would like us to fax this prescription to the pharmacy. Name of Med: Verapamil ER (SR) Strength of Pills: 120 MG Tablet EX Dosing Directions: Take on tablet by mouth twice a day 30 or 90 Day: 30 Day Pharmacy: [facility] [address] Last Appointment: 04/18/13 Next Appointment: N/A documented in this encounter Plan of Treatment Not on filedocumented as of this encounter Visit Diagnoses Not on filedocumented in this encounter Care Teams Record Retrieval Specialist Relationship Specialty Start Date End Date Otis Irwin MD PCP - General 06/22/12 documented as of this encounter
--- OUTSIDE RECORDS SUMMARY | 2022-04-27 21:46 | XMS_ITS | Encounter Summary ---
:1970 [place] [address] Care Team Providers Name Role Phone Otis Irwin MD Primary Care Provider Reason for Visit Reason Comments Medication Refill Encounter Details Date Type Department Care Team Description 08/02/2013 Refill Neurology at [facility] Wilner Vicente MD [facility] [place] [address] NEUROLOGY DEPT. [phone] [place], [place] [address] (Wo rk) Social History Tobacco Use Types Packs/Day Years Used Date Smoking Tobacco: Every Day Cigarettes Smokeless Tobacco: Never Alcohol Use Standard Drinks/Week Comments No 0 (1 standard drink = 0.6 oz pure alcoho l) Sex Assigned at Date Recorded Not on file documented as of this encounter Miscellaneous Notes Telephone Encounter - Britta Dukes LPN - 08/05/2013 12:53 PM EST Spoke with patient on the phone, and he has been taking Verapamil 120 mg BID per appointment on 03/09/13 and has been taking this without any difficulties. documented in this encounter Plan of Treatment Not on filedocumented as of this encounter Visit Diagnoses Not on filedocumented in this encounter Care Teams Feature Writer Relationship Specialty Start Date End Date Otis Irwin MD PCP - General 06/22/12 documented as of this encounter
--- OUTSIDE RECORDS SUMMARY | 2022-04-27 21:46 | XMS_ITS | Encounter Summary ---
:1970 Author Organization [facility] [place] [address] Care Team Providers Name Role Phone Oits Irwin MD Primary Care Provider Encounter Details Date Type Department Care Team Description 04/25/2014 Telephone Endocrinology at [facility] Junior Cordero, [facility] [place] [address] [facility] [phone] NEUROLOGY DEPT. [place], [place] [address] Social History Tobacco Use Types Packs/Day Years Used Date Smoking Tobacco: Every Day Cigarettes Smokeless Tobacco: Never Alcohol Use Standard Drinks/Week Comments No 0 (1 standard drink = 0.6 oz pure alcoho l) Sex Assigned at Date Recorded Not on file documented as of this encounter Miscellaneous Notes Telephone Encounter - Nazanin Hare RN - 04/25/2014 2:40 PM EST Olimpia , friend of Kavin, called to request a refill of lithium for Kavin . She states Kavin had been doing well in terms of his headaches but recently they have increased and he would like to increase his lithium . I have consulted with Junior Quiros , and I have informed Olimpia that Kavin will need to have an appt before [place] can be refilled because Kavin has not been seen since 04/18/13. Olimpia states that they do not have a working automobile at this time and cannot come for an appointment.Kavin will see his local MD since it is closer and he will discuss lithium doses and blood testing for lithium level with his local MD. Kavin will call back as needed and schedule a follow up appt whenhe is able to arrange transportation. documented in this encounter Plan of Treatment Not on filedocumented as of this encounter Visit Diagnoses Not on filedocumented in this encounter Care Teams Medical Detailist Relationship Specialty Start Date End Date Otis Irwin MD PCP - General 06/22/12 documented as of this encounter
--- OUTSIDE RECORDS SUMMARY | 2022-04-27 21:46 | XMS_ITS | Encounter Summary ---
:1970 Author Organization [facility] [place] [address] Care Team Providers Name Role Phone Otis Irwin MD Primary Care Provider Reason for Visit Reason Onset Date Comments Referral 10/19/2014 Encounter Details Date Type Department Care Team Description 10/19/2014 Telephone [place] [facility] [place]a Miller Referral [facility] [place] [address] Social History Tobacco Use Types Packs/Day Years Used Date Smoking Tobacco: Every Day Cigarettes Smokeless Tobacco: Never Alcohol Use Standard Drinks/Week Comments No 0 (1 standard drink = 0.6 oz pure alcoho l) Sex Assigned at Date Recorded Not on file documented as of this encounter Miscellaneous Notes Telephone Encounter - Erica Riley - 10/27/2014 3:16 PM EDT Unable to contact, letter sent Telephone Encounter - Erica Riley - 10/19/2014 3:27 PM EDT Left a message #1 for patient to call about scheduling their referral. documented in this encounter Plan of Treatment Not on filedocumented as of this encounter Visit Diagnoses Not on filedocumented in this encounter Care Teams Boats Renter Relationship Specialty Start Date End Date Otis Irwin MD PCP - General 06/22/12 documented as of this encounter
--- OUTSIDE RECORDS SUMMARY | 2022-04-27 21:46 | XMS_ITS | Encounter Summary ---
:1970 Author Organization [place] [address] Care Team Providers Name Role Phone Anoop Bowden MD Primary Care Provider [phone] Encounter Details Date Type Department Care Team Description 08/02/2010 Procedure visit [address] [address] Social History Tobacco Use Types Packs/Day Years Used Date Smoking Tobacco: Never Assessed Sex Assigned at Date Recorded Not on file documented as of this encounter Plan of Treatment Not on filedocumented as of this encounter Visit Diagnoses Not on filedocumented in this encounter Care Teams Apprentice Embalmer Relationship Specialty Start Date End Date Anoop Bowden MD PCP - General 05/07/10 06/21/[address] [place] [address] documented as of this encounter
--- OUTSIDE RECORDS SUMMARY | 2022-04-27 21:46 | XMS_ITS | Encounter Summary ---
:1970 [place] [address] Care Team Providers Name Role Phone Otis Irwin MD Primary Care Provider Encounter Details Date Type Department Care Team Description 03/18/2013 Telephone Neurology at [facility] Wilner Vicente MD [facility] [place] [address] NEUROLOGY DEPT. [phone] [place], [place] [address] (Wo rk) Social History Tobacco Use Types Packs/Day Years Used Date Smoking Tobacco: Every Day Cigarettes Smokeless Tobacco: Never Alcohol Use Standard Drinks/Week Comments No 0 (1 standard drink = 0.6 oz pure alcoho l) Sex Assigned at Date Recorded Not on file documented as of this encounter Miscellaneous Notes Telephone Encounter - Britta DukesEULALIA - 04/04/2013 11:45 AM EDT Email received from Medicare per my request for Dr. Vicente to speak to a physician that specializes in headache to approve oxygen for the use of cluster headaches: Per the LCD for Oxygen and Oxygen Equipment: Only a stationary gaseous oxygen system (E0424) and related contents (E0441) are covered for the treatment of cluster headaches (ICD-9 339.00, 339.01, 339.02) for beneficiaries enrolled in a clinical trial approved by [facility] which are in compliance with the requirements described in the CMS National Coverage Determination Manual (Internet Only Manual 100-3) ??240.2.2 for dates of service on or after 06/18/2010. Claims for E0424 and E0441 used to treat cluster headaches follow the same payment rules for all other covered oxygen equipment. Refer to the related Policy Article for information on statutory paymentrules and coding guidelines to be used for these claims. Felecia [employer], [employer] Fax Email [email or web address] [place] [phone] I also contacted [facility] in [facility], and car sales representative Eldon stated that oxygen cannot be approved from there end due to guidelines stating that an O2 saturation will need to be given to have oxygen approved, and order was prescribed for cluster headaches. Patient is now currently being billed privately. Spoke with patient's about the above information. She will need to contact above for insurance purposes to inquire about clinical trials. She and patient will discuss oxygen at patient's next appointment. Telephone Encounter - Britta Dukes LPN - 03/18/2013 11:57 AM EDT Informed patient that the only way to review claim submission for oxygen for cluster headaches is torequest a [id number] review is to e mail medicare through the [employer] web site, which I did on Thursday. This nurse informed patient that this nurse still has not received a response. Patient verbalized understanding and does not have any questions at this time. documented in this encounter Plan of Treatment Not on filedocumented as of this encounter Visit Diagnoses Not on filedocumented in this encounter Care Teams Sewage Screen Operator Relationship Specialty Start Date End Date Otis Irwin MD PCP - General 06/22/12 documented as of this encounter
--- OUTSIDE RECORDS SUMMARY | 2022-04-27 21:46 | XMS_ITS | Encounter Summary ---
:1970 Author Organization [facility] [place] [address] Care Team Providers Name Role Phone Otis Irwin MD Primary Care Provider Encounter Details Date Type Department Care Team Description 03/09/2013 Office Visit Neurology at [facility] Wilner Vicente MD Cluster headache [facility] ([facility] im[facility] [address] [place] NEUROLOGY DEPT. [id number] [place] [address] [phone] Social History Tobacco Use Types Packs/Day Years Used Date Smoking Tobacco: Every Day Cigarettes Smokeless Tobacco: Never Alcohol Use Standard Drinks/Week Comments No 0 (1 standard drink = 0.6 oz pure alcoho l) Sex Assigned at Date Recorded Not on file documented as of this encounter Last Filed Vital Signs Vital Sign Reading Time Taken Comments Blood Pressure 126/83 03/09/2013 8:21 AM EDT Pulse 64 03/09/2013 8:21 AM EDT Temperature - - Respiratory Rate - - Oxygen Saturation - - Inhaled Oxygen Concentration - - Weight 86.2 kg (190 lb) 03/09/2013 8:21 AM EDT Height 170.2 cm (5' 7) 03/09/2013 8:21 AM EDT Body Mass Index 29.76 03/09/2013 8:21 AM EDT documented in this encounter Progress Notes Wilner Vicente MD - 03/09/2013 8:53 AM EDT This is a 42 y.o. man, seen in consultation today at the request of his primary physician, Dr Irwin, for evaluation of chronic headaches. HPI This patient has had right sided severe headaches since the age of 33. They are daily and occur 1-4 x daily lasting between 1 and 4 hours. They can [...] Imitrex injections, Exedrinmigraine. Imitrex shots are consistently helpful. Occipital nerve blocks have not helped (done by Khalif). Prednisone did not help x2. He thinks Depakote was tried. Oxygen at 10 L/m was sometimes helpful. [place] was not tried. Diagnostic work-up: MRI of the brain done years and years ago was negative. Review of systems:chronic head pain as above, chronic back pain, insomnia. All other systems were negative. PMH Multiple back and knee surgeries This patient is on 30 mg oxycodone qid and methadone 10 mg qid for back and knee pain. He is also taking Topamax 50 mg tid, Verapimil 80 mg bid and trazodone qhs (he actually stopped these but does notremember the dose). [[facility] problem list, medication list and allergy list were reviewed but are inaccurate]. 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 Some cervical paraspinal muscle spasm was noted, with some limitation of range of movement. There were no carotid bruits. Fundoscopy was benign bilaterally. Paranasal sinuses were non-tender. Submandibular regions were benign. TMJ regions were benign. Lungs were clear. Cardiac auscultation was normal. Extremities and skin were normal. Neurological Exam: Mental status exam was normal. Cranial nerves 2-12 were normal. Motor tone and strength were normal.Muscle stretch reflexes were normal. Plantar refexes were flexor. Sensory exam was normal. Coordination was normal. Station and gait were normal. Impression: Migraine without aura features and features of cluster headache (duration, frequency, awakened from sleep, oxygen helped). In sum I think this patient has a variant of chronic cluster. Chronic migraine Opioid dependence and Analgesic rebound (medication overuse headache) Cervicogenic LAMBERT Diagnostic plan: Repeat MRI brain Therapeutic plan: Consider DHE nasal Continue Imitrex but shift to 4 mg Taper and DC Topamax Increase Verapimil to 120 mg bid Consider [place] DC cigarettes Reduce caffeine Follow up plan: The patient will follow up in Headache [facility] in 2 weeks Potential adverse effects of all medications were discussed in detail. We also discussed non-pharmacological approaches to acute and chronic pain as well as coping strategies. I answered all of the patient's questions and he was comfortable with the plan. It will probably be necessary to argue the need for high #s of Imitrex injection cartridges with his insurance company. documented in this encounter Plan of Treatment Not on filedocumented as of this encounter Results MRI brain WO contrast (04/18/2013 1:50 PM EST) Anatomical Region Laterality Modality Head Magnetic Resonance Specimen (Source) Anatomical Collection Method Collection Time Re ceived Time Location / / Volume Laterality 04/18/2013 1:50 PM EST Narrative 04/18/2013 4:02 PM EST Examination MR Brain without Contrast Clinical History severe Right sided Headache cluster headache Comparison None Technique MRI brain without contrast ?? Findings No acute infarct, hemorrhage or mass is identified. No regions of T2 or FLAIR hyperintensity. ??No areas of restricted diffusion. Ventricles normal in size and contour. ??Normal vascular flow void s. The paranasal sinuses are normal. ?? Impression No intracranial pathology identified. Film and interpretation reviewed by the attending Procedure Note Josiah العلي MD - 04/18/2013Format ting of this note might be different from the original. Examination MR Brain without Contrast Clinical History severe Right sided Headache cluster headache Comparison None Technique MRI brain without contrast Findings No acute infarct, hemorrhage or mass is identified. No regions of T2 or FLAIR hyperintensity. No areas of restricted d iffusion. Ventricles normal in size and contour. Normal vascular flow voids. The paranasal sinuses are normal. Impression No intracranial pathology identified. Film and interpretation reviewed by the attending Wilner Vicente MD IMG MRI ORDERABLES documented in this encounter Visit Diagnoses Diagnosis Cluster headache - Primary Cluster headache syndrome, unspecified Cluster headache Cluster headache syndrome, unspecified documented in this encounter Care Teams Surgical Corsetier Relationship Specialty Start Date End Date Otis Irwin MD PCP - General 06/22/12 documented as of this encounter
--- OUTSIDE RECORDS SUMMARY | 2022-04-27 21:46 | XMS_ITS | Encounter Summary ---
:1970 Author Organization [facility] [place] [address] Care Team Providers Name Role Phone Otis Irwin MD Primary Care Provider Reason for Visit Reason Comments Other Encounter Details Date Type Department Care Team Description 04/20/2013 Telephone [place] [facility] [place]urea Ryder, [facility] [place] [address] [facility] [phone] NEUROLOGY DEPT. [place], [place] [address] Social History Tobacco Use Types Packs/Day Years Used Date Smoking Tobacco: Every Day Cigarettes Smokeless Tobacco: Never Alcohol Use Standard Drinks/Week Comments No 0 (1 standard drink = 0.6 oz pure alcoho l) Sex Assigned at Date Recorded Not on file documented as of this encounter Miscellaneous Notes Telephone Encounter - Britta Finnegan LPN - 04/22/2013 10:51 AM EST Attempted to call #'s listed for patient and spouse, and messages received that #'s are still out ofservice. Letter sent to home address on file also. Telephone Encounter - Britta Finnegan LPN - 04/21/2013 9:43 AM EST Called patient's and spouse's #'s Listed, and again received messages that #'s are still out of service. Telephone Encounter - Britta Finnegan LPN - 04/20/2013 2:21 PM EST Again tried calling both listed #'s, and both are still not in service. Telephone Encounter - Britta Finnegan LPN - 04/20/2013 10:44 AM EST Telephone call to patient about the below information per Aurea Ryder APRN. Also informing of additional message from her: Also could please tell him that his MRI brain was normal (no massesor lesions noted). Tried calling patient's home # listed, and received message stating that telephone company is experiencing trouble at this time and call can not be completed. Also tried calling # listed for spouse to reach patient, but received message that number is not working at this time. Will attempt to call again. Telephone Encounter - Britta Finnegan LPN - 04/20/2013 10:36 AM EST Message copied by BRITTA FINNEGAN on ThuApr 20, 2013 10:36 AM ------ Message from: AUREA RYDER Created: ThuApr 19, 2013 9:08 AM Good morning, Can you please call Kavin for two things: He was suppose to go to the [place] [facility] [place] after our appt to get BMP/TSH/lyme antibody, but it looks like he didn't. So since he didn't get it done yesterday, when he gets his lithium level in two weeks he needs to add those labs as well. Just askwhere he will get this done at and we can fax the additional lab orders. Also he was going to call us back yesterday to tell us exactly what strength of Verapamil he is taking at home 120 mg or 180 mg twice daily. documented in this encounter Plan of Treatment Not on filedocumented as of this encounter Visit Diagnoses Not on filedocumented in this encounter Care Teams Fermentation Scientist Relationship Specialty Start Date End Date Otis Irwin MD PCP - General 06/22/12 documented as of this encounter
--- NOTE | 2022-04-27 22:04 | ED.GENADUL_ITS ---
Discharge Plan Disposition Patient Disposition: HOME Condition: Stable Discharge Details Clinical Impression: Odontalgia Primary Care Provider: Unknown,Unknown ED Provider: Sofia De Paz Home Meds and New Rx's Prescriptions: New clindamycin HCl [Cleocin HCl] 150 mg capsule 150 mg PO Q6H Qty: 90 0RF HurriCaine 20 % gel 1 applic mucous membrane TID PRNQty: 30 0RF Continued methadone 10 mg Tablet 140 mg PO DAILY Discharge Instructions Instructions: Toothache (ED) Additional Instructions: take antibiotics as prescribed motrin/tylenol for pain follow-up with dentist, call from the list supplied return earlier with new or worsening complaints yogurt daily secondary to antibiotics Discharge Data Discharge Date/Time-TO BE ENTERED AT DEPARTURE: 04/27/22 22:26 Medical Decision Making Patient has significant dental decay, on clindamycin Return precautions discussed and patient expressed understanding No evidence of Brenda's angina We will follow-up with dentist, dental list applied Medical Records Medical records reviewed: Yes I reviewed the patient's medical records. Lab Data Lab results reviewed: Yes I reviewed the patient's lab results. HPI General Date/Time Provider Initiated Documentation: 04/27/22 21:43 . HPI Narrative: This 51-year-old male presents with report of dental pain for the past 2 weeks. He has been taking antibiotics but states they have largely been ineffective. He denies any difficulty swallowing or fever. He states he did complete a course of antibiotics. He is yet to follow-up with a dentist reportedly. Related Data Home Medications Medication Instructions Recorded Confirmed methadone 10 mg tablet 140 mg PO DAILY 12/29/19 04/13/22 benzocaine 20 % mucosal gel 1 applic mucous membrane TID PRN 04/27/22 (HurriCaine) #30 grams clindamycin HCl 150 mg capsule 150 mg PO Q6H #90 caps 04/27/22 (Cleocin HCl) Previous Rx's Medication Instructions Recorded benzocaine 20 % mucosal gel 1 applic mucous membrane TID PRN 04/27/22 (HurriCaine) #30 grams clindamycin HCl 150 mg capsule 150 mg PO Q6H #90 caps 04/27/22 (Cleocin HCl) Allergies Allergy/AdvReac Type Severity Reaction Status Date / Time No Known Allergies Allergy Unverified 04/13/22 07:11 General Stated Complaint: DentalOral KERA: 4 Review of Systems All systems reviewed & are unremarkable except as noted in HPI and below PFSH All Active Problems (Updated 04/27/22 @ 22:06 by IKE Gomez) Odontalgia (Acute) Social History Smoking/Tobacco Use Status: Current every day Tobacco Type: cigarettes Smoking risk assessment performed?: Yes Alcohol Intake: former Substance use type: former substance user Details: methadone clinic Do you feel safe at home: Yes Do you feel safe in your relationship?: Yes Exam Const General: cooperative, comfortable and no acute distress Orientation: alert and oriented x3 HENMT Other: Widespread dental decay, tenderness to palpation over gumline surrounding 8 9 and 10, no obvious drainage, no evidence of deep space infection, uvula midline Resp Effort & Inspection: normal respiratory effort Auscultation: clear to auscultation bilaterally Cardio Rate: regular rate Rhythm: regular rhythm Neuro General: patient alert Course Vital Signs Vital signs: Vital Signs Temperature 36.5 C 04/27/22 21:44 Pulse 65 04/27/22 21:44 Respiratory Rate 15 04/27/22 21:44 Blood Pressure 112/84 04/27/22 21:44 Pulse Oximetry 98 04/27/22 21:44 Temperature 36.5 C 04/27/22 21:44 Temperature Source Oral 04/27/22 21:44 Pulse 65 04/27/22 21:44 Respiratory Rate 15 04/27/22 21:44 Blood Pressure 112/84 04/27/22 21:44 Blood Pressure Position Sitting 04/27/22 21:44 Pulse Oximetry 98 04/27/22 21:44 Oxygen Delivery Method Room Air 04/27/22 21:44 Oxygen Flow Rate 0 04/27/22 21:44 Pain Level 7 04/27/22 21:44
[2022-04-27] MEDS: Benzocaine 20% Gel 30 GM JAR MM (22:28)
[2022-04-27] MEDS: Clindamycin 150 MG CAP, 12 CAPS/BTL 450 MG PO (22:28)
== END 2022-04-27 22:26 | disposition home or self-care (01) ==
PROVIDERS: Emergency Provider Physician Assistant
DX: R68.84 Jaw pain (principal); K08.89 Other specified disorders of teeth and supporting structures; K02.9 Dental caries, unspecified
CPT/HCPCS: 99283

== ENCOUNTER 2022-05-06 11:06 | Emergency (ER) | payer MEDICARE, MEDICAID, SELFPAY ==
[2022-05-06 11:16] VITALS: BP 113/81; PULSE 78; RESP 16; TEMP 37; O2SAT 94
--- NOTE | 2022-05-06 12:07 | ED.GENADUL_ITS ---
Discharge Plan Disposition Patient Disposition: Home Condition: Stable Discharge Details Clinical Impression: Odontalgia Primary Care Provider: Unknown,Unknown ED Provider: Sofia De Paz Home Meds and New Rx's Prescriptions: Continued methadone 10 mg Tablet 90 mg PO DAILY clindamycin HCl [Cleocin HCl] 150 mg capsule 150 mg PO Q6H Qty: 90 0RF No Action famotidine [Pepcid] 20 mg tablet 20 mg PO DAILY Qty: 30 0RF pantoprazole [Protonix] 40 mg tablet,delayed release (DR/EC) 40 mg PO DAILY Qty: 30 0RF Discharge Instructions Instructions: Toothache (ED) Additional Instructions: Take prednisone as prescribed Take antibiotic as prescribed Have placed you on follow-up list to establish care with a primary care physician, follow-up with [facility] to establish care Return earlier should you have new or worsening complaints, talk to your doctor about a referral for a dentist wants to be, patient Referrals: ZOYA NASSAR, [employer]AR INST[employer]ER TECHNICIAN [ [facility] STAFF PHYSICIAN] - 1 day Discharge Data Discharge Date/Time-TO BE ENTERED AT DEPARTURE: 05/06/22 13:34 Medical Decision Making Patient will need primary care physician, referred for primary care physician in the outpatient setting, no evidence of significant deep space infection HurriCaine gel for discomfort Return precautions reviewed and patient expressed understanding Medical Records Medical records reviewed: Yes I reviewed the patient's medical records. Lab Data Lab results reviewed: Yes I reviewed the patient's lab results. Sign Out No HPI General Date/Time Provider Initiated Documentation: 05/06/22 11:07 . HPI Narrative: This 51-year-old gentleman presents for worsening dental pain. He has been trying to establish care with a primary care physician and a dentist, however he was told that they were no appointments available for months. He denies any difficulty swallowing. He denies any shortness of breath. Denies any facial swelling. Denies any trauma. Related Data Home Medications Medication Instructions Recorded Confirmed methadone 10 mg tablet 90 mg PO DAILY 12/29/19 05/09/22 clindamycin HCl 150 mg capsule 150 mg PO Q6H #90 caps 04/27/22 05/09/22 (Cleocin HCl) famotidine 20 mg tablet (Pepcid) 20 mg PO DAILY #30 tabs 05/09/22 pantoprazole 40 mg tablet,delayed 40 mg PO DAILY #30 tabs 05/09/22 release (Protonix) Previous Rx's Medication Instructions Recorded clindamycin HCl 150 mg capsule 150 mg PO Q6H #90 caps 04/27/22 (Cleocin HCl) famotidine 20 mg tablet (Pepcid) 20 mg PO DAILY #30 tabs 05/09/22 pantoprazole 40 mg tablet,delayed 40 mg PO DAILY #30 tabs 05/09/22 release (Protonix) Allergies Allergy/AdvReac Type Severity Reaction Status Date / Time No Known Allergies Allergy Unverified 05/09/22 19:59 General Stated Complaint: DentalOral KERA: 4 Review of Systems All systems reviewed & are unremarkable except as noted in HPI and below PFSH All Active Problems (Updated 05/09/22 @ 23:00 by Fabio Zelaya MD) Odontalgia (Acute) Throat pain (Acute) Difficulty swallowing (Acute) Social History Smoking/Tobacco Use Status: Current every day Tobacco Type: cigarettes Smoking risk assessment performed?: Yes Alcohol Intake: former Substance use type: former substance user Details: methadone clinic Do you feel safe at home: Yes Do you feel safe in your relationship?: Yes Exam Const General: cooperative and no acute distress HENMT Mouth/tongue images: 1. widespread dental decay, swelling along gumline, no purulent drainage or evidence of deep space infection Eyes Pupils: PERRL Resp Effort & Inspection: normal respiratory effort Auscultation: clear to auscultation bilaterally Cardio Rate: regular rate Neuro General: patient alert and patient oriented x3 Course Vital Signs Vital signs: Vital Signs Temperature 37.0 C 05/06/22 11:16 Pulse 78 05/06/22 11:16 Respiratory Rate 16 05/06/22 11:16 Blood Pressure 113/81 05/06/22 11:16 Pulse Oximetry 94 05/06/22 11:16 Temperature 37.0 C 05/06/22 11:16 Temperature Source Tympanic 05/06/22 11:16 Pulse 78 05/06/22 11:16 Respiratory Rate 16 05/06/22 11:16 Blood Pressure 113/81 05/06/22 11:16 Blood Pressure Position Sitting 05/06/22 11:16 Pulse Oximetry 94 05/06/22 11:16 Oxygen Delivery Method Room Air 05/06/22 11:16 Oxygen Flow Rate 0 05/06/22 11:16 Pain Level 7 05/06/22 11:16
--- NOTE | 2022-05-06 12:15 | NUR.NOTE ---
Nursing Note: Referral given to Care Management needs PCP, establish care, routine follow up.
[2022-05-06] MEDS: Benzocaine 20% Gel 30 GM JAR MM (12:49)
== END 2022-05-06 13:34 | disposition home or self-care (01) ==
PROVIDERS: Emergency Provider Physician Assistant
DX: R68.84 Jaw pain (principal)
CPT/HCPCS: 99282

== ENCOUNTER 2022-05-09 19:48 | Emergency (ER) | payer MEDICARE, MEDICAID, SELFPAY ==
[2022-05-09] VITALS (30 sets, daily range): BP systolic 100–140; BP diastolic 66–117; PULSE 44–67; RESP 5–18; TEMP 36.7; O2SAT 93–98
--- NOTE | 2022-05-09 19:45 | RT.EKG_ITS ---
APPROVED REPORT Exam: Resting ECG Reason for Exam: chest pain Patient Location: E HR:57 bpm ECG Measurements Heart Rate 57 AXIS CO 130 P 58 QRSd 81 QRS 55 QT 436 T 54 QTc 426 Conclusion Sinus bradycardia...rate< 60 Nonspecific T abnormalities, lateral leads...T <-0.10mV, I aVL V5 V6 ST elev, probable normal early repol pattern...ST elevation, age<55 NO stemi
--- NOTE | 2022-05-09 20:15 | DI.RAD_ITS ---
Exam(s) XR CHEST 2V PA LATERAL EXAM: XR CHEST 2V PA LATERAL CLINICAL HISTORY: chest pain TECHNIQUE: 2D digital imaging was performed. COMPARISON: No exams were available for comparison FINDINGS: HEART: Normal size. Aorta: PULMONARY VASCULATURE: Normal. LUNGS: Clear. PLEURAL SPACE: No pleural effusion or pneumothorax. BONE:Unremarkable for age. IMPRESSION: No acute abnormality. DATA REPOSITORY: RADIATION DOSE DELIVERED:
--- NOTE | 2022-05-09 20:15 | W.ED.GENAD ---
Discharge Plan Disposition Patient Disposition: Home Condition: Stable Discharge Details Clinical Impression: Throat pain, Difficulty swallowing Primary Care Provider: Unknown,Unknown ED Provider: Fabio Zelaya Home Meds and New Rx's Prescriptions: New famotidine [Pepcid] 20 mg tablet 20 mg PO DAILY Qty: 30 0RF pantoprazole [Protonix] 40 mg tablet,delayed release (DR/EC) 40 mg PO DAILY Qty: 30 0RF Continued methadone 10 mg Tablet 90 mg PO DAILY clindamycin HCl [Cleocin HCl] 150 mg capsule 150 mg PO Q6H Qty: 90 0RF Discontinued HurriCaine 20 % gel 1 applic mucous membrane TID PRNQty: 30 0RF prednisone 20 mg tablet 20 mg PO ONCE 7 Days Qty: 7 0RF Discharge Instructions Additional Instructions: Please follow-up with general surgery to schedule upper endoscopy. Please follow-up with primary care physician. Incidental finding noted on your CT scan included pulmonary nodule. Please be sure to discuss this with your primary care physician. Return to the emerge department immediately for any worsening or new concerning symptoms. Referrals: [facility] [Provider Group] Medical Decision Making 2023 --51-year-old male chronic smoker, snorts heroin and cocaine, here with burning throat and chest discomfort with difficulty swallowing. Symptoms worse when lying flat. Patient is hemodynamically stable. Screening EKG was reviewed and interpreted by me: Sinus bradycardia 57 bpm, normal axis, no STEMI, he does have some DC depression laterally. Patient is not consistent with ACS. Suspect reflux and esophagitis. Plan to treat with Pepcid, pantoprazole and Mylanta. --Patient was reassessed and did notice some improvement but it was temporary after Mylanta. Continues to have some discomfort in his neck right greater than left. CT of the neck was interpreted by radiology: No acute findings. Periodontal disease. CT of the chest was interpreted by radiology: No acute findings. Incidental findings including mildly hyperinflated lungs, minuscule groundglass density in the right lower lobe, mild pulmonary emphysema. All results were discussed with patient. I have recommended that he follow-up with general surgery for endoscopy and also will need a primary care physician established. You will need follow-up for lung nodule. Usual and customary discharge instructions reviewed with the patient. Lab Data Lab results reviewed: Yes I reviewed the patient's lab results. Labs: Laboratory Tests Range/Units 05/09/22 05/09/22 20:05 20:05 WBC (4.4-10.8) 10^3/uL 8.98 RBC (4.36-5.78) 10^6/uL 4.75 Hgb (13.5-17.5) g/dL 14.3 Hct (40.0-50.0) % 42.7 MCV (80-95) fL 90 MCH (27.0-33.0) pg 30.1 MCHC (32.0-36.0) % 33.5 RDW (11.8-14.1) % 12.1 Plt Count (130-400) 10^3/uL 194 MPV (8.0-11.0) fL 10.0 Immature Gran % 0.2 Neutrophils % 52.2 Lymphocytes % 37.8 Monocytes % 7.0 Eosinophils % 2.1 Basophils % 0.7 Nucleated RBC % (0.0-0.3) % 0.0 Absolute Neutrophils (1.2-6.7) 10^3/uL 4.69 Absolute Lymphocytes (1.2-3.4) 10^3/uL 3.39 Absolute Monocytes (0.1-0.8) 10^3/uL 0.63 Absolute Eosinophils (0.0-0.7) 10^3/uL 0.19 Absolute Basophils (0.0-0.2) 10^3/uL 0.06 Sodium (136-145) mmol/L 136 Potassium (3.5-5.1) mmol/L 4.0 Chloride (98-107) mmol/L 99 Carbon Dioxide (21.0-32.0) mmol/L 34.2 H Anion Gap (3-11) mmol/L 2.8 L BUN (7-18) mg/dL 26 H Creatinine (0.70-1.30) mg/dL 1.1 Est GFR (CKD-EPI 2020) (mL/min/1.73m2) 80.27 Glucose (74-106) mg/dL 86 Calcium (8.5-10.1) mg/dL 8.7 Total Bilirubin (0.2-1.0) mg/dL 0.3 AST (15-37) U/L 13 L ALT (16-63) U/L 18 Alkaline Phosphatase (46-116) U/L 66 Total Protein (6.4-8.2) g/dL 7.8 Albumin (3.4-5.0) g/dL 4.2 Sign Out No HPI General Date/Time Provider Initiated Documentation: 05/09/22 19:51. HPI Narrative: 51-year-old male, chronic smoker, here with chief complaint of chest and throat discomfort. Patient notes burning discomfort in his throat and upper chest. Patient notes symptoms started a few days ago and have persisted. Discomfort is moderate to severe. He notes he has trouble swallowing because of the discomfort. No associated shortness of breath. Patient recently seen in the emerge department for dental pain and was prescribed clindamycin. Related Data Home Medications Medication Instructions Recorded Confirmed methadone 10 mg tablet 90 mg PO DAILY 12/29/19 05/09/22 clindamycin HCl 150 mg capsule 150 mg PO Q6H #90 caps 04/27/22 05/09/22 (Cleocin HCl) famotidine 20 mg tablet (Pepcid) 20 mg PO DAILY #30 tabs 05/09/22 pantoprazole 40 mg tablet,delayed 40 mg PO DAILY #30 tabs 05/09/22 release (Protonix) Previous Rx's Medication Instructions Recorded clindamycin HCl 150 mg capsule 150 mg PO Q6H #90 caps 04/27/22 (Cleocin HCl) famotidine 20 mg tablet (Pepcid) 20 mg PO DAILY #30 tabs 05/09/22 pantoprazole 40 mg tablet,delayed 40 mg PO DAILY #30 tabs 05/09/22 release (Protonix) Allergies Allergy/AdvReac Type Severity Reaction Status Date / Time No Known Allergies Allergy Unverified 05/09/22 19:59 General Stated Complaint: Chest Pain KERA: 2 PFSH All Active Problems (Updated 05/09/22 @ 23:00 by Fabio Zelaya MD) Odontalgia (Acute) Throat pain (Acute) Difficulty swallowing (Acute) Social History Smoking/Tobacco Use Status: Current every day Tobacco Type: cigarettes Smoking risk assessment performed?: Yes Alcohol Intake: former Substance use type: former substance user Details: methadone clinic Do you feel safe at home: Yes Do you feel safe in your relationship?: Yes Exam Const General: cooperative and no acute distress Orientation: alert and awake [facility] Head: normocephalic and atraumatic Mouth: moist mucous membranes Teeth and gingiva: poor dentition Throat: posterior oropharynx normal Eyes Conjunctivae: normal conjunctivae Sclera: normal sclerae EOM: EOM intact bilaterally Neck Neck: trachea midline, supple and no lymphadenopathy noted Lymphatic: no lymphadenopathy noted Other: no swelling Resp Auscultation: clear to auscultation bilaterally, no rales, no rhonchi and no wheezes Cardio Jugular venous pressure: no JVD Rate: regular rate and not tachycardic Rhythm: regular rhythm GI Palpation: soft, not firm, no guarding, no masses, not rigid and tender in the epigastrum Skin General skin exam: no rashes or lesions noted Neuro General: patient alert, patient awake, patient oriented x3 and tone normal Extrem General: no edema Psych Appearance: grossly normal Mental Status: mental status grossly normal Speech and Movement: speech and movement normal Course Vital Signs Vital signs: Vital Signs Temperature 36.7 C 05/09/22 19:50 Pulse 64 05/09/22 19:50 Blood Pressure 135/69 05/09/22 19:50 Pulse Oximetry 98 05/09/22 19:50 Temperature 36.7 C 05/09/22 19:50 Temperature Source Skin 05/09/22 19:50 Pulse 64 05/09/22 19:50 Respiratory Effort 05/09/22 20:00 Blood Pressure 135/69 05/09/22 19:50 Pulse Oximetry 98 05/09/22 19:50 Oxygen Delivery Method Room Air 05/09/22 19:50 Oxygen Flow Rate 0 05/09/22 19:50 Pain Level 7 05/09/22 19:50 Comment 05/09/22 19:50
[2022-05-09 20:20] LABS: Abs Immature Grans 0.02 10^3/uL (0.0-0.06); Absolute Basophil Count 0.06 10^3/uL (0.0-0.2); Absolute Eosinophil Count 0.19 10^3/uL (0.0-0.7); Absolute Lymphocyte Count 3.39 10^3/uL (1.2-3.4); Absolute Monocyte Count 0.63 10^3/uL (0.1-0.8); Absolute Neutrophil Count 4.69 10^3/uL (1.2-6.7); Basophils % 0.7; Eosinophils % 2.1; HCT 42.7 % (40.0-50.0); HGB 14.3 g/dL (13.5-17.5); Immature Grans % 0.2; Lymphocytes % 37.8; MCH 30.1 pg (27.0-33.0); MCHC 33.5 % (32.0-36.0); MCV 90 fL (80-95); Neutrophils % 52.2; Platelet Count 194 10^3/uL (130-400); RBC 4.75 10^6/uL (4.36-5.78); RDW 12.1 % (11.8-14.1); RDW-SD 39.8 fL; WBC 8.98 10^3/uL (4.4-10.8)
[2022-05-09] MEDS: Pantoprazole 40 MG VIAL IVP (20:23)
[2022-05-09] MEDS: Famotidine 20 MG/2 ML VIAL IVP (20:23)
[2022-05-09] MEDS: Mylanta Suspension 30 ML CUP PO (20:32)
[2022-05-09 20:36] LABS: ALT 18 U/L (16-63); AST 13 U/L (15-37); Albumin 4.2 g/dL (3.4-5.0); Alkaline Phosphatase 66 U/L (46-116); Anion Gap 2.8 mmol/L (3-11); BUN 26 mg/dL (7-18); Bilirubin, Total 0.3 mg/dL (0.2-1.0); CO2 34.2 mmol/L (21.0-32.0); CREATININE 1.1 mg/dL (0.70-1.30); Calcium 8.7 mg/dL (8.5-10.1); Chloride 99 mmol/L (98-107); Estimated GFR 80.27 (mL/min/1.73m2); Glucose 86 mg/dL (74-106); Sodium 136 mmol/L (136-145); Total Protein 7.8 g/dL (6.4-8.2)
--- NOTE | 2022-05-09 21:02 | DI.VRAD_ITS ---
PROCEDURE INFORMATION: Exam: XR Chest Exam date and time: 05/09/2022 8:49 PM Age: 51 years old Clinical indication: Other: Chest pain TECHNIQUE: Imaging protocol: Radiologic exam of the chest. Views: 2 views. COMPARISON: CT CHEST PE CTA 06/16/2021 4:39 PM FINDINGS: Lungs: No consolidation. Pleural spaces: Unremarkable. No pleural effusion. No pneumothorax. Heart/Mediastinum: Unremarkable. No cardiomegaly. Bones/joints: Unremarkable. IMPRESSION: No acute findings. Dictated and Authenticated by: Dante Herzog MD. Ordering:ANGELES Mccarthy MD
--- NOTE | 2022-05-09 21:45 | DI.CT_ITS ---
Exam(s) CT NECK CHEST W EXAM: CT NECK CHEST W CLINICAL HISTORY: pain right neck and throat, difficulty swallowing TECHNIQUE: Imaging Protocol: Axial computed tomography images with coronal and sagittal reformatted images were created and reviewed CONTRAST MATERIAL: Intravenous: Omnipaque 350 Contrast volume:100 ml Contrast route:IV - COMPARISON: CT CT CHEST PE CTA from 06/16/2021 FINDINGS: Neck: Parotids/submandibular/thyroid gland: Normal. Lymphadenopathy: There is scattered lymph nodes seen along the level one to level three all measurin g less than 8 mm in short axis diameter which are physiologic in nature. Carotids/Jugular: Within normal limits. Soft tissues: The floor the mouth is unremarkable. The epiglottis and vocal cords are within normal limits. Images through both lung apices are unremarkable. Visualized portions of the brain are unrem arkable. Sinuses: Mucous retention cyst right maxillary and sphenoid sinuses. Bones: Degenerative changes at C5-6 and C6-7 as well as C1-2. Multiple dental caries. Multiple area s of periapical lucency. No adjacent abscess visible. Chest: Tracheobronchial tree: Patent where visualized. Mediastinum and Elizabeth: No dominant adenopathy or fluid collection. Pulmonary parenchyma: No consolidation or dominant measurable mass. Minimal emphysematous changes. Pleura: No effusion or pneumothorax. Heart/Aorta: Thoracic aorta non-dilated. The heart is not dilated. Mild coronary artery calcification s are seen. Upper abdomen: Unremarkable. Bones: Mild degenerative changes. IMPRESSION: Severe dental disease. No abscess visible. No acute abnormality in the chest. RADIATION DOSE DELIVERED: 784.15mGy.cm Total DLP DATA REPOSITORY: All CT scans at this facility are submitted to the National Radiology Data Registry (NRDR) Dose Index Registry (DIR) with the [employer] (ACR). RADIATION OPTIMIZATION: All CT scans at this facility use at least one of these dose optimization te chniques: automated exposure control; mA and/or kV adjustment per patient size (includes targeted exa ms where dose is matched to clinical indication); or iterative reconstruction.
[2022-05-09] MEDS: Normal Saline - Diluent 50 ML VIAL IV (22:06)
[2022-05-09] MEDS: Omnipaque 350 MG/ML 100 ML BTL IJ (22:07)
--- NOTE | 2022-05-09 22:44 | DI.VRAD_ITS ---
PROCEDURE INFORMATION: Exam: CT Neck With Contrast Exam date and time: 05/09/2022 21:59 Age: 51 years old Clinical indication: Wheezing and other: Chest pain, difficulty swallowing; Other: Pain right neck and throat difficulty swallowing TECHNIQUE: Imaging protocol: Computed tomography of the neck with contrast. 3D rendering (Not supervised by radiologist): MIP and/or 3D reconstructed images were created by the technologist. Contrast material: 350; Contrast volume: 100 ml; Contrast route: INTRAVENOUS (IV); COMPARISON: CT CHEST PE CTA 06/16/2021 16:39 FINDINGS: Paranasal sinuses: Minor benign-appearing retention cyst in the right maxillary sinus, right sphenoid sinus. Dental: Periodontal disease. Severe multifocal dental caries and periapical abscesses. Pharynx: Unremarkable. No significant tonsillar enlargement. Larynx: Normal epiglottis. Prevertebral and retropharyngeal spaces: Unremarkable. Salivary glands: Normal. Glands are normal in size. Thyroid: No enlarged or calcified nodules. Lymph nodes: No lymphadenopathy. Trachea: Visualized trachea is unremarkable. Lungs: Unremarkable as visualized. Bones/joints: Mid cervical predominant degenerative changes. No acute fracture or subluxation. Soft tissues: No significant soft tissue swelling. IMPRESSION: 1. No acute findings. 2. Periodontal disease. PROCEDURE INFORMATION: Exam: CT Chest With Contrast; Diagnostic Exam date and time: 05/09/2022 21:59 Age: 51 years old Clinical indication: Wheezing and other: Chest pain, difficulty swallowing; Other: Pain right neck and throat difficulty swallowing TECHNIQUE: Imaging protocol: Diagnostic computed tomography of the chest with contrast. 3D rendering (Not supervised by radiologist): MIP and/or 3D reconstructed images were created by the technologist. Radiation optimization: All CT scans at this facility use at least one of these dose optimization techniques: automated exposure control; mA and/or kV adjustment per patient size (includes targeted exams where dose is matched to clinical indication); or iterative reconstruction. Contrast material: 350; Contrast volume: 100 ml; Contrast route: INTRAVENOUS (IV); COMPARISON: CT CHEST PE CTA 06/16/2021 16:39 FINDINGS: Lungs: The lungs appear mildly hyperinflated. There is a miniscule ground-glass density in the right lower lobe. Follow-up as per institutional protocol. Mild pulmonary emphysema. No airspace consolidation. No significant bronchial wall thickening. Pleural spaces: No pneumothorax. No pleural effusion. Heart: No cardiomegaly. No pericardial effusion. Lymph nodes: No enlarged lymph nodes. Vasculature: No aortic aneurysm. Bones/joints: No acute fracture or subluxation. Soft tissues: No suspicious lesions. IMPRESSION: 1. No acute findings. 2. Incidental findings as described. Dictated and Authenticated by: Padma Moses MD. Ordering:ANGELES Mccarthy MD
--- NOTE | 2022-05-12 19:17 | NUR.NOTE ---
Patient at [facility] Emergency Dept. Nurse called for reports from visits at [facility]. Reports faxed.Nursing Note:
== END 2022-05-09 23:04 | disposition home or self-care (01) ==
PROVIDERS: Emergency Provider Student in an Organized Health Care Education/Training Program
DX: R07.0 Pain in throat (principal); R13.10 Dysphagia, unspecified; K05.6 Periodontal disease, unspecified; R00.1 Bradycardia, unspecified; R07.89 Other chest pain; F17.210 Nicotine dependence, cigarettes, uncomplicated
CPT/HCPCS: 36415; 70491; 80053; 93005; 96374; 96375; 99285; 71046; 71260; 85025; 93010; 99284; J3490

== ENCOUNTER → 2022-05-15 13:01 | Outpatient (BNVA) | payer MEDICARE, MEDICAID, SELFPAY | PROVIDERS: Visit Provider Physical Therapy Assistant | DX: R13.10 Dysphagia, unspecified (principal); R07.0 Pain in throat | CPT/HCPCS: 99213 ==

== ENCOUNTER 2022-05-16 08:32 | Day surgery (SDC) | payer MEDICARE, MEDICAID, SELFPAY ==
--- NOTE | 2022-05-16 07:07 | ENDO_ITS ---
Date of service: 05/16/22 Time of Service: 11:55 Endoscopy Report DATE OF PROCEDURE: 05/16/22 PRE-OP DIAGNOSIS: Difficulty swallowing, weight loss POST-OP DIAGNOSIS: other (gastritis) PROCEDURE: EGD with biopsies SURGEON: Santa Roberts ANESTHESIA TYPE: General:No Airway ESTIMATED BLOOD LOSS: 3 PATHOLOGY: other (bx of antrum, body and GE junction) COMPLICATIONS: None DISPOSITION: same day INDICATIONS: 51-year-old male with a 2-week history of severe odynophagia and dysphagia.? Patient has attempted [id number] numbing lozenges and spray without any improvement.? He also was treated with a course pantoprazole and famotidine with minimal improvement.? Patient reports that eating and drinking has been more difficult due to his level of discomfort. Upon further review of his chart from recent visits related to these complaints the patient has lost ~17 pounds between 05/06/22-05/15/22 (9 days). Given the patient's severity of his complaints, decreased oral intake, weight loss and overall appearance proceeding with an EGD is indicated. DDX Esophagitis, Gastritis [facility] ordered nystain oral suspension for possible thrush given patient's history of antibiotics for treatment of dental carries. This too is possible. Patient has not started the nystatin. -Discussed Upper endoscopy procedure and the need to be NPO after midnight the night prior. Discussed possible complications of the procedure to include bleeding, pain, perforation, missed small lesion/polyp/ulcers, sore throat, aspiration and adverse reaction to the medications or sedation. Questions were answered to patient?s satisfaction. No guarantees were implied or given.? FINDINGS: moderate to severe inflammation of the stomach mild reflux esophagitis PROCEDURE DESCRIPTION: After informed consent was obtained the patient was take to the procedure room and placed in a supine position. Monitors were applied and a time out was done. The patients name, date of , procedure type, allergies to medications and metal in their body was reviewed. A bite block was placed and the patient was sedated. Once sedated and comfortable the gastroscope was advanced through the oropharynx which was grossly normal into the esophagus. The proximal and mid- esophagus were normal. In the distal esophagus there was mild inflammation n oted. The scope was advanced into the stomach and through the pylorus into the 3rd portion of the duodenum. The duodenum was noted to be Normal. The scope was retracted back into the stomach. There was moderate to severe inflammation noted. Biopsies were done to rule out H. pylori. There were no ulcers. The scope was retroflexed. The cardia and fundus were noted to be normal. There was no hiatal hernia noted. The scope was retracted back into the esophagus and biopsies were done of the GE junction to rule out Ocampo's. The Z line was regular. The GE junction was at 35 cm. The scope was removed and the patient was woken up and taken back to [facility] in stable condition.
--- NOTE | 2022-05-16 07:08 | W.PM.DSUDISC ---
Date of service: 05/16/22 Time of Service: 11:55 Discharge Plan Disposition Patient Disposition: HOME Condition: Good Discharge Details Reason For Visit: difficulty swallowing, weight loss Attending Provider: Santa Roberts Primary Care Provider: None,None Home Meds and New Rx's Prescriptions: New pantoprazole [Protonix] 40 mg tablet,delayed release (DR/EC) 40 mg PO BID Qty: 60 0RF Continued sucralfate [Carafate] 1 gram tablet 1 g PO QACHS Qty: 90 0RF methadone 10 mg Tablet 120 mg PO DAILY Discontinued pantoprazole [Protonix] 40 mg tablet,delayed release (DR/EC) 40 mg PO DAILY Qty: 30 0RF famotidine [Pepcid] 20 mg tablet 20 mg PO DAILY Qty: 30 0RF Discharge Instructions Instructions: Diet for Stomach Ulcers and Gastritis (ED), Gastritis (ED) Additional Instructions: Findings: Inflammation of the stomach Follow up: with your PCP please Please call if you develop: fevers >101.5 Nausea or Vomiting Abdominal pain that is not transient Rectal bleeding that is more then a tbsp A hard abdomen and inability to pass gas DAY SURGERY UNIT POST ENDOSCOPY INSTRUCTIONS Instructions for everyone who is given Anesthesia: For your safety, please do the following for the next 24 Hours: a. Do not drive or operate dangerous equipment b. Do not drink alcohol beverages or use any recreational drugs for the first 24 hours or while taking pain medications. The medications in your body may have a reaction that can be dangerous. c. Do not make any important decisions or sign any important papers 1. Generally there are no restrictions on your activity after a day or so has gone by, but you may feel a bit fatigued for a few days. 2. After you arrive home you may have a light meal and return to a normal diet as you can tolerate it without feeling sick to your stomach. 3. After surgery, you may feel pain or discomfort. This should be only transient, but if it persists please contact your doctor. 4. If there are any questions regarding the findings of your procedure, please feel free to contact your doctor. 6. If you are unable to contact your doctor with a problem, contact the hospital at [phone]. 7. Continue all your regular medications unless directed otherwise. I understand the above instructions and have no questions. Signature of Patient or Responsible Adult Escort Date/Time Name of Responsible Adult Escort Signature of Nurse Date/Time Activity:: Activity as Tolerated Equipment/Supplies:: No Equipment Needed Diet:: low acid DS: Diagnosis Discharge Diagnosis (1) Difficulty swallowing: Status: Acute
[2022-05-16 08:50] VITALS: BP 104/70; PULSE 52; RESP 16; TEMP 36; O2SAT 99
[2022-05-16] MEDS: Lactated Ringers 1,000 ML 80 ML IV (09:14)
--- NOTE | 2022-05-16 09:52 | ANES.PREOP_ITS ---
General Info Date of Service Date Performed: 05/16/22 Height: 5 ft 7 in Weight: 70.1 kg Body Mass Index (BMI): 24.2 Surgical Procedure: Operation Date: 05/16/22 10:05 Proposed Procedure Side Surgeon p Gastroscopy Santa Roberts MD Meds Allergies and Home Medications Allergies Allergy/AdvReac Type Severity Reaction Status Date / Time No Known Allergies Allergy Unverified 05/16/22 08:42 Home Medication Medication Instructions Recorded methadone 10 mg tablet 120 mg PO DAILY 12/29/19 famotidine 20 mg tablet (Pepcid) 20 mg PO DAILY #30 tabs 05/15/22 pantoprazole 40 mg tablet,delayed 40 mg PO DAILY #30 tabs 05/15/22 release (Protonix) sucralfate 1 gram tablet (Carafate) 1 g PO QACHS #90 tabs 05/15/22 Current Visit Medications: Current Medications Generic Name Dose Route Start Last Admin Trade Name Freq PRN Reason Stop Dose Admin Hyoscyamine Sulfate 0.125 mg 05/16/22 07:09 Hyoscyamine 0.125 Mg Sl/Oral/Chew SL DIRECTED PRN Ringer's Solution 1,000 mls @ 80 mls/hr 05/16/22 06:00 05/16/22 09:14 IV 06/14/22 23:59 80 mls/hr INFUSION BONNY Administration IV Miscellaneous Supplies 1 each 05/16/22 06:00 Iv Access IV 06/14/22 23:59 DIRECTED BONNY Ondansetron HCl 4 mg 05/16/22 07:09 Ondansetron 4 Mg/2 Ml Vial IVP Q4H PRN PRN Nausea / Vomiting Sodium Chloride 0 ml 05/16/22 06:00 Normal Saline Flush 10 Ml Syr IV 06/14/22 23:59 PRN PRN Sodium Chloride 0 ml 05/16/22 06:00 Normal Saline 10 Ml Vial IJ 06/14/22 23:59 DIRECTED PRN Sterile Water 0 ml 05/16/22 06:00 Water,Injection,Sterile 10 Ml Vial IJ 06/14/22 23:59 DIRECTED PRN PFSH Active Problems Active Problems: Problem Status Onset Code Throat pain R07.0 Difficulty swallowing R13.10 Surgical History Surgical History History of back surgery History of knee surgery Tobacco Smoking/Tobacco Use Status: Current every day Tobacco Type: cigarettes Smoking cigarettes per day: 10 Alcohol Alcohol Intake: former Substance Use Substance use type: former substance user Details: methadone clinic Vital Signs and Lab Results Vital Signs Most Recent Vital Signs in EMR: Most Recent Vital Signs Temp Pulse Resp BP Pulse Ox 36 C L 52 L 16 104/70 99 05/16/22 08:50 05/16/22 08:50 05/16/22 08:50 05/16/22 08:50 05/16/22 08:50 Lab Results Blood Type / Crossmatch: No Data to Display Complete Blood Count: White Blood Count 8.98 10^3/uL (4.4-10.8) 05/09/22 20:05 Red Blood Count 4.75 10^6/uL (4.36-5.78) 05/09/22 20:05 Hemoglobin 14.3 g/dL (13.5-17.5) 05/09/22 20:05 Hematocrit 42.7 % (40.0-50.0) 05/09/22 20:05 Platelet Count 194 10^3/uL (130-400) 05/09/22 20:05 Complete Metabolic Panel: Sodium 136 mmol/L (136-145) 05/09/22 20:05 Potassium 4.0 mmol/L (3.5-5.1) 05/09/22 20:05 Chloride 99 mmol/L (98-107) 05/09/22 20:05 Carbon Dioxide 34.2 mmol/L (21.0-32.0) H 05/09/22 20:05 BUN 26 mg/dL (7-18) H 05/09/22 20:05 Creatinine 1.1 mg/dL (0.70-1.30) 05/09/22 20:05 Est GFR (CKD-EPI 2020) 80.27 (mL/min/1.73m2) 05/09/22 20:05 Calcium 8.7 mg/dL (8.5-10.1) 05/09/22 20:05 Albumin 4.2 g/dL (3.4-5.0) 05/09/22 20:05 Glucose 86 mg/dL (74-106) 05/09/22 20:05 Liver Function Panel: Alanine Aminotransferase (ALT/SGPT) 18 U/L (16-63) 05/09/22 20: 05 Aspartate Amino Transf (AST/SGOT) 13 U/L (15-37) L 05/09/22 20: 05 Coagulation Panel: No Data to Display Cardiac Panel: No Data to Display Arterial Blood Gas: No Data to Display Venous Blood Gas: No Data to Display Pancreas Panel: No Data to Display Thyroid Panel: No Data to Display Infectious Disease: No Data to Display Blood Cultures: No Data to Display Toxicology Panel: No Data to Display Anesthesia Assessment and Plan Anesthesia History Personal History: Other ([place] with migrAine after anesthesia) Family History: No Family History of Anesthesia Complications Exercise Tolerance Exercise Tolerance: Metabolic Equivalents>4 Pertinent Negatives Pertinent Negatives: No Symptoms of GERD Cardiac & Pulmonary Exam Cardiac Exam: Normal S1/S2 Heart Sounds Pulmonary Exam: Clear Bilateral Breath Sounds Implantable Cardiac Device Does patient have a Pacemaker or an ICD?: No Airway Exam Known Difficult Airway: No Mallampati Class: 1 Mouth Opening: Normal (> 3cm) Thyromental Distance: Greater than 3 cm Neck Range of Motion: Full ROM Neck Circumference: Normal Teeth Condition: Generalized Poor Dentition ASA Classification ASA Score: ASA 2 Emergency Case?: No NPO Status NPO Status: NPO Clears >2 hours, Solids >8 hours Anesthesia Plan Resuscitation Status: Full Code Anesthesia Technique: General Anesthesia Airway Planned: Natural Airway Monitors Used: Standard Monitors
[2022-05-16 09:56] VITALS: BMI 24.2
[2022-05-16 10:26] LABS: *BENZODIAZEPINES SCREEN URINE Negative (Negative); Cocaine Screen,Urine Positive (Negative)
[2022-05-16 10:27] LABS: *AMPHETAMINES SCREEN URINE Negative (Negative); *BARBITURATES SCREEN URINE Negative (Negative); Cannabinoids THC Negative (Negative); OPIATES URINE SCREEN Positive (Negative); Tricyclic Antidepressants Positive (Negative)
--- NOTE | 2022-05-16 11:38 | STOM_PTH ---
PATIENT: Kavin Fortune LOC: [facility] U#:[id number] AGE/SX: 51/M ROOM: RE05/16/[address]: Santa Roberts MD : 1970 BED: DIS: 05/16/2022 SPEC #: [id number] RECD: 05/16/22 12:48 STATUS: NIMA REQ #: [id number] SHARDA: 05/16/22 11:[address]: Santa Roberts DEPT: Surgical Specimen RECD BY: Sofia Albrecht ENTERED: 05/16/22 12:49 SP TYPE: STOMACH OTHR DR: None Tissues: 1 - STOMACH BIOPSY 2 - STOMACH BIOPSY 3 - ESOPHAGUS BIOPSY Procedures: GROSS AND MICRO LEVEL 4 Comments: [id number]
[2022-05-16 12:05] VITALS: BP 102/64; PULSE 49; RESP 14; TEMP 36.4; O2SAT 96
--- NOTE | 2022-05-16 12:26 | W.ANESPOSTOP ---
Postoperative Evaluation Date, Time and Location Date Performed: 05/16/22 Time Performed: 12:05 Patient Location: Day Surgery Unit Vital Signs Most Recent Imported Vital Signs: Most Recent Vital Signs Temp Pulse Resp BP Pulse Ox 36.4 C L 49 L 14 102/64 96 05/16/22 12:05 05/16/22 12:05 05/16/22 12:05 05/16/22 12:05 05/16/22 12:05 Pain Score Most Recent Pain Score: Most Recent Pain Score Pain Level 2 05/16/22 12:05 Assessment Mental Status: Awake (Alert & Oriented to Patient Baseline) Airway and Respiratory Function: Patent airway with normal (patient baseline) respiratory exam Cardiovascular Function: Hemodynamically Stable Hydration Status: Adequately Hydrated Nausea & Vomiting: No Nausea or Vomiting Pain: Pt. Denies Any Pain Peripheral Nerve Block: Patient did not receive a nerve block
[2022-05-16 12:29] VITALS: BP 110/73; PULSE 53; RESP 16; TEMP 36.4; O2SAT 99
== END 2022-05-16 12:35 | disposition home or self-care (01) ==
PROVIDERS: Physical Therapy Assistant; Visit Provider Surgery
PROC: 0DJ68ZZ Inspection of Stomach, Via Natural or Artificial Opening Endoscopic (ICD-10-PCS; CPT 43235; principal; 2022-05-16 10:00)
DX: R13.10 Dysphagia, unspecified (principal); R63.4 Abnormal weight loss; Z68.24 Body mass index [BMI] 24.0-24.9, adult; K29.70 Gastritis, unspecified, without bleeding; K20.90 Esophagitis, unspecified without bleeding; Z79.899 Other long term (current) drug therapy; F11.90 Opioid use, unspecified, uncomplicated; K22.89 Other specified disease of esophagus
CPT/HCPCS: 43239; 80307; 88305; 96361; 96374; 96375; 99284; 99283; J0780; J1885

== ENCOUNTER 2022-05-16 20:38 | Emergency (ER) | payer MEDICARE, MEDICAID, SELFPAY ==
[2022-05-16 20:43] VITALS: BP 131/78; PULSE 53; RESP 18; TEMP 36.4; O2SAT 98
--- OUTSIDE RECORDS SUMMARY | 2022-05-16 20:50 | XMS_ITS | Encounter Summary ---
:1970 Author Organization [facility] [place] [address] Care Team Providers Name Role Phone Otis Irwin MD Primary Care Provider Reason for Visit Reason Onset Date Comments Other 03/10/2013 Inform about oxygen claim status Encounter Details Date Type Department Care Team Description 03/10/[address] [facility] Wilner Vicente MD Other (Inform about [facility] oxy gen claim status) [place] [address] NEUROLOGY DEPT. [phone] [place], [place] [address] (Wo rk) Social History Tobacco [...] EDT Contacted Medicare DME @ , and education courses sales representative stated to go to [email or web address], and send an inquiry form submission, and [...] need to have the name of the nuclear medical technologist I will be speaking with along with a direct number that does notrequire navigating a multi step list of options. And the nuclear medical technologist must have had some experience or knowledge in headache medicine. If that is not possible I really am not able to help, and the next step will be for patients to call their insurance company themselves or better yet have their compliance attorney call. Thanks for your patience. Mo Telephone Encounter - Chelo Woodall - 03/11/2013 2:07 PM EDT Felecia calling from [facility] asking for update from call yesterday. Medicare is denying this pt RX for oxygen because of the dx being used, cluster headaches. Pt's is calling [facility] saying that Dr. Vicente told them he can get this pushed thru no matter what. Felecia would like a call back today if possible. Telephone Encounter - Nazanin Hare RN - 03/10/2013 2:12 PM EDT I spoke to Eldon at [facility] To discuss what additional information is needed for the oxygen order. Telephone Encounter - Alexandria Paredes - 03/10/2013 12:20 PM EDT Eldon from [facility] needs a script and more information in order to provide the patient with oxygen. documented in this encounter Plan of Treatment Not on filedocumented as of this encounter Visit Diagnoses Not on filedocumented in this encounter Care Teams Reed Man Relationship Specialty Start Date End Date Otis Irwin MD PCP - General 06/22/12 (work) documented as of this encounter
--- OUTSIDE RECORDS SUMMARY | 2022-05-16 20:50 | XMS_ITS | Encounter Summary ---
:1970 Author Organization [facility] [place] [address] Care Team Providers Name Role Phone Otis Irwin MD Primary Care Provider Reason for Visit Reason Onset Date Comments Medication Refill 01/10/2014 Med Refill Encounter Details Date Type Department Care Team Description 01/10/2014 Refill Neurology at [facility] Anoop Carrera MD [facility] [place] [address] NEUROLOGY DEPT. [phone] [place], [place] [address] (Wo rk) Social History Tobacco [...] 01/10/2014 4:38 PM EDT Per Junior Mcfarland, ARTILLERY SPECIALIST: Did patient ever get EKG completed if [...] or 90 Day: 30 Day Pharmacy: [facility] [address] Last Appointment: 04/18/13 Next Appointment: N/A documented in this encounter Plan of Treatment Not on filedocumented as of this encounter Visit Diagnoses Not on filedocumented in this encounter Care Teams Water And Fire Technician Relationship Specialty Start Date End Date Otis Irwin MD PCP - General 06/22/12 documented as of this encounter
--- OUTSIDE RECORDS SUMMARY | 2022-05-16 20:50 | XMS_ITS | Encounter Summary ---
:1970 [place] [address] Care Team Providers Name Role Phone Anoop Bowden MD Primary Care Provider [phone] Encounter Details Date Type Department Care Team Description 08/02/2010 Office Visit Orthopaedics at [facility] Delfino Maier MD [facility] [place] [address] ORTHOPAEDIC SURGERY [phone] [place], [place] [address] (Wo rk) Social History Tobacco Use Types Packs/Day Years Used Date Smoking Tobacco: Never Assessed Sex Assigned at Date Recorded Not on file documented as of this encounter Plan of Treatment Not on filedocumented as of this encounter Visit Diagnoses Not on filedocumented in this encounter Care Teams Mechanical Development Engineer Relationship Specialty Start Date End Date Anoop Bowden MD PCP - General 05/07/10 06/21/12 4 [place] [address] documented as of this encounter
--- OUTSIDE RECORDS SUMMARY | 2022-05-16 20:50 | XMS_ITS | Encounter Summary ---
:1970 [place] [address] Care Team Providers Name Role Phone Otis Irwin MD Primary Care Provider Encounter Details Date Type Department Care Team Description 03/18/2013 Telephone Neurology at [facility] Wilner Vicente MD [facility] [place] [address] NEUROLOGY DEPT. [phone] [place], [place] [address] (Wo rk) Social History Tobacco [...] enrolled in a clinical trial approved by [facility] which are in compliance with the requirements [...] be used for these claims. Felecia Lee [employer], [employer] Fax Email [email or web address] [place] [phone] I also contacted [facility] in [facility], and ambulatory service representative Eldon stated that oxygen cannot be [...] oxygen for cluster headaches is torequest a tkfa-yl-rwao review is to e mail medicare through the [employer] web site, which I did on Thursday. This nurse informed patient that this nurse still has not received a response. Patient verbalized understanding and does not have any questions at this time. documented in this encounter Plan of Treatment Not on filedocumented as of this encounter Visit Diagnoses Not on filedocumented in this encounter Care Teams Deposition Reporter Relationship Specialty Start Date End Date Otis Irwin MD PCP - General 06/22/12 documented as of this encounter
--- OUTSIDE RECORDS SUMMARY | 2022-05-16 20:50 | XMS_ITS | Encounter Summary ---
:1970 Author Organization [facility] [place] [address] Care Team Providers Name Role Phone Otis Irwin MD Primary Care Provider Encounter Details Date Type Department Care Team Description 04/18/2013 Follow-Up [facility]rology at [facility], DR VALERY Coronel (Primary Dx); [facility] Junior Mcfarland APRN [facility] [address] Cluster headache; [place] [address] Social History Tobacco Use Types Packs/Day [...] man, who was initially seen by Dr. Vicenet and is clinic today for his first [...] Oxygen at 10 L/m was sometimes helpful. [place] was not tried. Diagnostic work-up: MRI of [...] round, and reactive to light. 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 Occipital nerves [...] borderline will not increase Verapamil, but start [place] 150mg nightly and will get lithium level [...] hypothyroidism documented in this encounter Care Teams Chalker Soles Relationship Specialty Start Date End Date Otis Irwin MD PCP - General 06/22/12 documented as of this encounter
--- OUTSIDE RECORDS SUMMARY | 2022-05-16 20:50 | XMS_ITS | Encounter Summary ---
:1970 Author Organization [facility] [place] [address] Care Team Providers Name Role Phone Otis Irwin MD Primary Care Provider Reason for Visit Reason Comments Other Encounter Details Date Type Department Care Team Description 04/20/2013 Telephone Neurology at [facility] Aurea Ryder, [facility] [place] [address] [facility] [phone] NEUROLOGY DEPT. [place], [place] [address] Social History Tobacco Use Types [...] to go to the lab here at [facility] yesterday after our appt to get BMP/TSH/lyme [...] on filedocumented in this encounter Care Teams Ic Designer Standard Cells Relationship Specialty Start Date End Date Otis Irwin MD PCP - General 06/22/12 documented as of this encounter
--- OUTSIDE RECORDS SUMMARY | 2022-05-16 20:50 | XMS_ITS | Encounter Summary ---
:1970 Author Organization [place] [address] Care Team Providers Name Role Phone Otis Irwin MD Primary Care Provider Encounter Details Date Type Department Care Team Description 04/25/2014 Telephone Endocrinology at [facility] Junior Cordero, [facility] [place] [address] [address] [facility] [phone] NEUROLOGY DEPT. [place], [place] [address] Social History Tobacco Use Types [...] will need to have an appt before Melvina can be refilled because Kavin has not [...] on filedocumented in this encounter Care Teams Administrative Director Relationship Specialty Start Date End Date Otis Irwin MD PCP - General 06/22/12 documented as of this encounter
--- OUTSIDE RECORDS SUMMARY | 2022-05-16 20:50 | XMS_ITS | Encounter Summary ---
:1970 Author Organization [facility] [place] [address] Care Team Providers Name Role Phone Otis Irwin MD Primary Care Provider Reason for Visit Reason Onset Date Comments Referral 10/19/2014 Encounter Details Date Type Department Care Team Description 10/19/2014 Telephone Orthopaedics at [facility] Erica Miller Referral [facility] [place] [address] Social History Tobacco Use Types Packs/Day [...] on filedocumented in this encounter Care Teams Neon Installer Relationship Specialty Start Date End Date Otis Irwin MD PCP - General 06/22/12 documented as of this encounter
--- OUTSIDE RECORDS SUMMARY | 2022-05-16 20:50 | XMS_ITS | Encounter Summary ---
:1970 Author Organization [facility] [place] [address] Care Team Providers Name Role Phone Otis Irwin MD Primary Care Provider Encounter Details Date Type Department Care Team Description 04/18/2013 Hospital Encounter MRI at [facility] Cluster headache [facility] [place] [address] Social History Tobacco Use Types Packs/Day Years Used Date Smoking Tobacco: Every Day Cigarettes Smokeless Tobacco: Never Alcohol Use Standard Drinks/Week Comments No 0 (1 standard drink = 0.6 oz pure alcoho l) Sex Assigned at Date Recorded Not on file documented as of this encounter Medications at Time of Discharge Medication Sig Dispensed Refills Start Date End Date aspirin-acetaminophen Take 1-2 tablets by 0 -caffeine (EXCEDRIN mouth as needed. MIGRAINE) 250-250-65 mg per tablet SUMAtriptan (IMITREX Inject 6 mg 0 STATDOSE PEN) 6 subcutaneously as mg/0.5 mL kit needed. SUMAtriptan (IMITREX) Take 100 mg by mouth as 0 100 mg tablet needed. OXYcodone 30 mg Tb12 Take 30 mg by mouth 0 every 12 hours as needed. SUMAtriptan Succinate Inject 0.5 mLs 36 each 2 03/09/2013 (IMITREX STATDOSE subcutaneously 2 times PEN) 4 mg/0.5 mL daily as needed. PnIjIndications: Cluster headache lithium 150 mg Take 1 capsule by mouth 30 capsule 2 04/18/20 13 capsuleIndications: nightly. Migraine, Cluster headache hydrOXYzine (ATARAX) Take twice daily as 30 tablet 3 2012 25 mg needed for tabletIndications: nausea/headache Migraine, Cluster (mild/moderate) headache verapamil (CALAN-SR) Take 180 mg by mouth 2 0 08/05/2013 180 mg CR tablet times daily. verapamil (CALAN-SR) Take 1 tablet by mouth 60 tablet 2 08/02/2013 120 mg CR 2 times daily. tabletIndications: Cluster headache documented as of this encounter Miscellaneous Notes Miscellaneous - Provider, Scanning - 05/06/2013 9:16 AM EST documented in this encounter Plan of Treatment Not on filedocumented as of this encounter Procedures Procedure Name Priority Date/Time Associated Diagnosis Comme nts MRI BRAIN WO Routine 04/18/2013 1:50 PM Cluster headache Resul ts for this CONTRAST EST procedure are i n the results section. documented in this encounter Results MRI brain WO contrast [...] this encounter Visit Diagnoses Diagnosis Cluster headache Cluster headache syndrome, unspecified documented in this encounter Care Teams Sales Consulting Director Relationship Specialty Start Date End Date Otis Irwin MD PCP - General 06/22/12 documented as of this encounter
--- OUTSIDE RECORDS SUMMARY | 2022-05-16 20:50 | XMS_ITS | Encounter Summary ---
:1970 Author Organization [facility] [place] [address] Care Team Providers Name Role Phone Otis Irwin MD Primary Care Provider Encounter Details Date Type Department Care Team Description 03/09/2013 Office Visit Neurology at [facility] Wilner Vicente MD Cluster headache [facility] (Pr imary Dx) Drive DR [place] NEUROLOGY DEPT. [address] [place] [address] [phone] Social History Tobacco Use Types Packs/Day Years [...] Oxygen at 10 L/m was sometimes helpful. [place] was not tried. Diagnostic work-up: MRI of [...] these but does notremember the dose). [The [facility] problem list, medication list and allergy list were reviewed but are inaccurate]. 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
--- OUTSIDE RECORDS SUMMARY | 2022-05-16 20:50 | XMS_ITS | Encounter Summary ---
:1970 [place] [address] Care Team Providers Name Role Phone Otis Irwin MD Primary Care Provider Encounter Details Date Type Department Care Team Description 10/18/2015 Telephone [place]rology [place] [facility] Opal Dickinson MD [facility] [place] [address] NEUROLOGY DEPT [phone] [place], [place] [address] (Wo rk) Social History Tobacco [...] on filedocumented in this encounter Care Teams Director Of Financial Aid Relationship Specialty Start Date End Date Otis Irwin MD PCP - General 06/22/12 documented as of this encounter
--- OUTSIDE RECORDS SUMMARY | 2022-05-16 20:50 | XMS_ITS | Encounter Summary ---
:1970 Author Organization [facility] [place] [address] Care Team Providers Name Role Phone Otis Irwin MD Primary Care Provider Reason for Visit Reason Onset Date Comments Other 04/18/2013 Clarification on med ication Encounter Details Date Type Department Care Team Description 04/18/2013 Telephone Neurology at [facility] Jordi Mcfarland (Clarification on [facility] KAE Pacheco N medication) [place] [address] NEUROLOGY DEPT. [place], [place] [address] Social History Tobacco Use Types [...] 04/18/2013 3:20 PM EST Lisa called from [facility] looking for clarification on Hydroxine 25 mg tablets prescription for this patient that was e-scribed today. Please call her to iva. documented in this encounter Plan of Treatment Not on filedocumented as of this encounter Visit Diagnoses Not on filedocumented in this encounter Care Teams Leaflet Distributor Relationship Specialty Start Date End Date Otis Irwin MD PCP - General 06/22/12 documented as of this encounter
--- OUTSIDE RECORDS SUMMARY | 2022-05-16 20:50 | XMS_ITS | Encounter Summary ---
:1970 Author Organization [facility] [place] [address] Care Team Providers Name Role Phone Otis Irwin MD Primary Care Provider Reason for Visit Reason Onset Date Comments Other 05/19/2013 Other Encounter Details Date Type Department Care Team Description 05/19/2013 Telephone Neurology at [facility] Aurea Ryder, Jordi; [facility] [place] [address] [facility] [phone] NEUROLOGY DEPT. [place], [place] [address] Social History Tobacco Use Types Packs/Day Years Used Date Smoking Tobacco: Every Day Cigarettes Smokeless Tobacco: Never Alcohol Use Standard Drinks/Week Comments No 0 (1 standard drink = 0.6 oz pure alcoho l) Sex Assigned at Date Recorded Not on file documented as of this encounter Miscellaneous Notes Telephone Encounter - Britta Finnegan LPN - 05/20/2013 9:42 AM EST Spoke with patient's on the phone about the below information per Aurea Ryder APRN. Labs for TSH, [place] faxed to [phone]; EKG order faxed to [phone]. Telephone Encounter - Britta Finnegan LPN - 05/20/2013 9:42 AM EST Message copied by BRITTA FINNEGAN on ThuMay 20, 2013 9:42 AM ------ Message from: AUREA RYDER Created: Naomy May 19, 2013 3:47 PM Just spoke to Mrs. Fortune who states that Kavin never stated the lithium and his headaches are well controlled on Verapamil 120mg BID. She can not find the orders that were sent to their home. So can you please call the EKG order in to [facility] in [place], [place]. The EKG is for Verapamil therapy to check QTc. Thanks JFB Telephone Encounter - Lorraine Coello Am - 05/19/2013 11:27 AM EST calling for patient to let Aurea Ryder know that patient is taking Verapamil 120 mg twice a day. He is not taking [place]. This is in response to a letter they received from Nazanin Ryder. documented in this encounter Plan of Treatment Not on filedocumented as of this encounter Visit Diagnoses Not on filedocumented in this encounter Care Teams Rhit Relationship Specialty Start Date End Date Otis Irwin MD PCP - General 06/22/12 documented as of this encounter
--- OUTSIDE RECORDS SUMMARY | 2022-05-16 20:50 | XMS_ITS | Clinical Summary ---
:1970 Author Organization [facility] [place] [address] Care Team Providers Name Role Phone Otis Irwin MD Primary Care Provider Allergies Active Allergy Reactions Severity Noted Date Comments Aspirin Nosebleeds Codeine Phosphate Nausea And Vomiting Medications Medication Sig Dispensed Refills Start Date End Date Status aspirin-acetaminop Take 1-2 tablets by 0 Active hen-caffeine mouth as needed. (EXCEDRIN MIGRAINE) 250-250-65 mg per tablet SUMAtriptan Inject 6 mg 0 Active (IMITREX STATDOSE subcutaneously as PEN) 6 mg/0.5 mL needed. kit SUMAtriptan Take 100 mg by mouth 0 Active (IMITREX) 100 mg as needed. tablet OXYcodone 30 mg Take 30 mg by mouth 0 Active Tb12 every 12 hours as needed. SUMAtriptan Inject 0.5 mLs 36 each 2 03/09/2013 Ac tive Succinate (IMITREX subcutaneously 2 STATDOSE PEN) 4 times daily as mg/0.5 mL needed. PnIjIndications: Cluster headache lithium 150 mg Take 1 capsule by 30 capsule 2 04/18/2013 Active capsuleIndications mouth nightly. : Migraine, Cluster headache hydrOXYzine Take twice daily as 30 tablet 3 04/18/2013 Active (ATARAX) 25 mg needed for tabletIndications: nausea/headache Migraine, Cluster (mild/moderate) headache verapamil TAKE ONE TABLET BY 60 tablet 0 05/29/2014 Active (CALAN-SR) 120 mg MOUTH TWO TIMES A DAY Tablet Sustained Release Active Problems Problem Noted Date CIS - Entered not Verified 06/19/2010 CIS - Knee pain Immunizations Name Administration Dates Next Due Td, adult 07/18/2003 Social History Tobacco Use Types Packs/Day Years Used Date Smoking Tobacco: Every Day Cigarettes Smokeless Tobacco: Never Alcohol Use Standard Drinks/Week Comments No 0 (1 standard drink = 0.6 oz pure alcoho l) Sex Assigned at Date Recorded Not on file Last Filed Vital Signs Vital Sign Reading [...] Mass Index 30.85 04/18/2013 2:17 PM EST Plan of Treatment Health Maintenance Due Date Last Done Comments Hepatitis B vaccine (0-59 yrs) (1 of 3 - 3-dose 1970 series) Covid-19 Vaccine (#1) 06[birth year]21/1971 HIV screen 1986 Hepatitis C Screening 1986 Lipid Screening 1986 Tdap adult 12/20/1987 Tetanus vaccine 07/18/2013 07/18/2003 Colonoscopy 2013 Zoster vaccine (1 of 2) 2018 Influenza (Flu) vaccine (1 of 1 - Influenza standard 02/13/2022 series) 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
--- NOTE | 2022-05-16 21:43 | ED.GENADUL_ITS ---
Discharge Plan Disposition Patient Disposition: Home Condition: Improving Discharge Details Clinical Impression: Migraine Primary Care Provider: None,None ED Provider: Silver Lee [place] Meds and New Rx's Prescriptions: New sumatriptan succinate 50 mg tablet See Rx Instructions .ROUTE .COMPLEX Qty: 20 0RF Rx Instructions: take 1 tab at onset of headache; if no relief may repeat 1 tab after at least 2 hrs; max = 4 tabs/24 hr No Action sucralfate [Carafate] 1 gram tablet 1 g PO QACHS Qty: 90 0RF pantoprazole [Protonix] 40 mg tablet,delayed release (DR/EC) 40 mg PO BID Qty: 60 0RF methadone 10 mg Tablet 120 mg PO DAILY Discharge Instructions Additional Instructions: You were seen for a headache which resolved with fluids and medications here. I have given you prescription for sumatriptan which you have taken previously for your headaches. Please continue to find a new primary care physician. Return to the ED for any severe worsening headache, neurologic change, vomiting, other concerns. Medical Decision Making Patient presenting with migraine type headache which she has long history of. Has been here previously for same with most recent visit for headache in December of this year. Will place IV and give fluids, ketorolac, prochlorperazine. is requesting prescription for Imitrex for him to use at home until they are able to secure a new primary care physician for him. Patient's headache has resolved with treatment here. Will provide prescription for Imitrex as requested. Patient to continue finding PCP. Return precautions provided. Medical Records Medical records reviewed: Yes I reviewed the patient's medical records. Sign Out No HPI General Mode of arrival: ambulatory . Date/Time Provider Initiated Documentation: 05/16/22 21:25 . Limitations to Documentation: no limitations . Information obtained by: patient . HPI Narrative: Patient presents to ED with migraine headache which she has had previously. This is unchanged from any of his previous headaches. He does not have a primary care and he does not have his Imitrex that he typically takes. He has had no fever or URI symptoms. He denies any neurologic changes. He has light sensitivity. Some nausea but no vomiting. His corroborates that he has h ad headaches like this for years. Related Data Home Medications Medication Instructions Recorded Confirmed methadone 10 mg tablet 120 mg PO DAILY 12/29/19 05/16/22 sucralfate 1 gram tablet (Carafate) 1 g PO QACHS #90 tabs 05/15/22 05/16/22 pantoprazole 40 mg tablet,delayed 40 mg PO BID #60 tabs 05/16/22 release (Protonix) sumatriptan succinate 50 mg tablet See Rx Instructions PO .COMPLEX 05/16/22 #20 tabs Previous Rx's Medication Instructions Recorded sucralfate 1 gram tablet (Carafate) 1 g PO QACHS #90 tabs 05/15/22 pantoprazole 40 mg tablet,delayed 40 mg PO BID #60 tabs 05/16/22 release (Protonix) sumatriptan succinate 50 mg tablet See Rx Instructions PO .COMPLEX 05/16/22 #20 tabs Allergies Allergy/AdvReac Type Severity Reaction Status Date / Time No Known Allergies Allergy Unverified 05/16/22 08:42 General Stated Complaint: Headache KERA: 4 Review of Systems Narrative: 10/26 Review of Systems completed and is negative except as stated above in HPI (Systems reviewed: Const, Resp, CV, GI, Neuro) PFSH All Active Problems (Updated 05/16/22 @ 23:05 by Silver Lee MD) Migraine (Chronic) Throat pain (Acute) Difficulty swallowing (Acute) Medical History Migraine Surgical History History of back surgery History of knee surgery Social History Smoking/Tobacco Use Status: Current every day Tobacco Type: cigarettes Smoking risk assessment performed?: Yes Alcohol Intake: former Substance use type: former substance user Details: methadone clinic Do you feel safe at home: Yes Do you feel safe in your relationship?: Yes Exam Narrative Exam Narrative: Const: WDWN male in NAD. HEENT: NC/AT. Normal facial exam. Eyes: Normal conjunctiva and sclera. PERRL and EOMI. Neck: Supple. Trachea midline. Lungs: Normal respiratory effort. Cor: RRR. Good radial pulses. Neuro: A+O x 3. Normal speech, mentation, gait. Cranial nerves II - XII grossly intact. No gross motor or sensory deficit. Ext: No C/C/E. Skin: Warm and dry without rash. Course Vital Signs Vital signs: Vital Signs Temperature 97.5 F L 05/16/22 20:43 Pulse 53 L 05/16/22 20:43 Respiratory Rate 18 05/16/22 20:43 Blood Pressure 131/78 05/16/22 20:43 Pulse Oximetry 98 05/16/22 20:43 Temperature 97.5 F L 05/16/22 20:43 Temperature Source Tympanic 05/16/22 20:43 Pulse 53 L 05/16/22 20:43 Respiratory Rate 18 05/16/22 20:43 Respiratory Effort 05/16/22 20:45 Blood Pressure 131/78 05/16/22 20:43 Blood Pressure Position Supine 05/16/22 20:43 Pulse Oximetry 98 05/16/22 20:43 Pain Level 8 05/16/22 20:43
[2022-05-16] MEDS: Normal Saline 1,000 ML 1000 ML IV (22:17)
[2022-05-16] MEDS: Ketorolac 30 MG/ML VIAL 15 MG IVP (22:19)
[2022-05-16] MEDS: Prochlorperazine 10 MG/2 ML VIAL IVP (22:19)
[2022-05-16 23:15] VITALS: BP 100/59; PULSE 45; RESP 16; TEMP 36.4; O2SAT 97
== END 2022-05-16 23:17 | disposition home or self-care (01) ==
PROVIDERS: Emergency Provider Emergency Medicine
DX: G43.909 Migraine, unspecified, not intractable, without status migrainosus (principal)
CPT/HCPCS: 96361; 96374; 96375; 99284; 99283; J0780; J1885

== ENCOUNTER 2022-06-18 03:14 | Outpatient (CLI) | payer OTHER, MEDICARE, MEDICAID, SELFPAY ==
--- NOTE | 2022-06-18 | DI.RAD_ITS ---
Exam(s) XR LUMBAR SPINE AP, LAT EXAM: XR LUMBAR SPINE AP, LAT CLINICAL HISTORY: BACK INJURIES, DISABILITY DETERMINATION, PAIN. TECHNIQUE: 2D digital imaging was performed. Five views. COMPARISON: No exams were available for comparison FINDINGS: BONES: No fracture or destructive lesion. Vertebral body heights are maintained. Posterior fusion mcfadden rdware is noted at L3-4. DISKS: Degenerative disc changes are present greatest at L2-3. Facet degenerative changes are noted greatest at L4-5. ALIGNMENT: Slight levoscoliosis. SOFT TISSUE: A large quantity of stool is noted throughout the colon. IMPRESSION: Degenerative disc changes greatest at L2-3. Facet degenerative changes greatest at L4-5. Unremarkab le fusion hardware at L3-4. DATA REPOSITORY: RADIATION DOSE DELIVERED:
--- NOTE | 2022-06-18 | DI.RAD_ITS ---
Exam(s) XR KNEE RT 2V AP,LAT EXAM: XR KNEE RT 2V AP,LAT CLINICAL HISTORY: BACK INJURIES, KNEE INJURIES, PAIN,DISABILITY DETERMINATION,Z02.71. TECHNIQUE: 2D digital imaging was performed. Three views. COMPARISON: No exams were available for comparison FINDINGS: BONES: No acute fracture is present. No bony destructive lesion is seen. Two screws are noted in the proximal tibia. JOINTS: The knee is normally aligned. No joint effusion is seen. There are degenerative changes at t he patellofemoral joint. The femoral tibial joint spaces are not optimally profiled but show mild pe riarticular spurring. SOFT TISSUE: Normal. IMPRESSION: Postsurgical changes of proximal tibia. [id number] degenerative changes of the patellofemoral joint. Mild degenerative changes of femoral tibial joints. DATA REPOSITORY: RADIATION DOSE DELIVERED:
== END 2022-06-18 03:34 ==
PROVIDERS: Visit Provider Pediatrics Pediatric Rheumatology
DX: M54.59 Other low back pain (principal); Z98.1 Arthrodesis status; M47.816 Spondylosis without myelopathy or radiculopathy, lumbar region; M51.36 Other intervertebral disc degeneration, lumbar region; M25.561 Pain in right knee; M17.11 Unilateral primary osteoarthritis, right knee; Z98.890 Other specified postprocedural states; Z02.71 Encounter for disability determination
CPT/HCPCS: 72100; 73560

== ENCOUNTER 2022-06-30 09:35 | Emergency (ER) | payer MEDICARE, MEDICAID, SELFPAY ==
[2022-06-30 09:46] VITALS: BP 109/73; PULSE 60; RESP 18; TEMP 36.6; O2SAT 96
--- NOTE | 2022-06-30 10:00 | DI.RAD_ITS ---
Exam(s) XR LUMBAR SPINE COMPLETE EXAM: XR LUMBAR SPINE COMPLETE CLINICAL HISTORY: back pain, fall, prior surgery. TECHNIQUE: 2D digital imaging was performed of the lumbar spine. Five images were obtained. AP, la teral, right oblique, left oblique and L5-S1 spot views were obtained. COMPARISON: CR XR LUMBAR SPINE AP, LAT from 06/18/2022 FINDINGS: BONES: No fracture or destructive lesion. Endplate osteophytes are seen throughout the lumbar spine. Degenerative changes of the facets are seen at L4-5 and L5-S1. There again seen postsurgical changes at L3-L4. DISKS: There is disc space narrowing at L3-L4. ALIGNMENT: Lumbar spinal alignment is within normal limits. No spondylolysis or spondylolisthesis. SOFT TISSUE: Normal. IMPRESSION: No acute abnormality. DATA REPOSITORY: RADIATION DOSE DELIVERED:
[2022-06-30] MEDS: predniSONE 20 MG TAB 40 MG PO (10:21)
[2022-06-30] MEDS: Acetaminophen 325 MG TAB 650 MG PO (10:21)
--- NOTE | 2022-06-30 13:07 | ED.GENADUL_ITS ---
Discharge Plan Disposition Patient Disposition: Home Condition: Stable Discharge Details Clinical Impression: Lumbar strain Primary Care Provider: None,None ED Provider: Sofia De Paz Home Meds and New Rx's Prescriptions: New cyclobenzaprine 10 mg tablet 10 mg PO TID PRNQty: 10 0RF prednisone 20 mg tablet 40 mg PO DAILY 5 Days Qty: 10 0RF Continued sucralfate [Carafate] 1 gram tablet 1 g PO QACHS Qty: 90 0RF gabapentin 300 mg PO BID sumatriptan succinate [Imitrex] 100 mg tablet 100 mg PO DIRECTED pantoprazole [Protonix] 40 mg tablet,delayed release (DR/EC) 40 mg PO BID Qty: 60 0RF sumatriptan succinate 50 mg tablet See Rx Instructions .ROUTE .COMPLEX Qty: 20 0RF Rx Instructions: take 1 tab at onset of headache; if no relief may repeat 1 tab after at least 2 hrs; max = 4 tabs/24 hr methadone 10 mg Tablet 120 mg PO DAILY Discharge Instructions Instructions: Low Back Strain (ED) Additional Instructions: Please take the prednisone as prescribed Take the Flexeril as needed, use with caution and do not take at the same time as your methadone Please follow-up with your primary care physician Return earlier should you have new or worsening complaints including changes in bowel or bladder, new strength or sensation changes, or any weakness Discharge Data Discharge Date/Time-TO BE ENTERED AT DEPARTURE: 06/30/22 13:26 Medical Decision Making This 51-year-old gentleman who presents with acute exacerbation of chronic back pain after a fall has an x-ray of his lumbar spine that does not show acute fracture per radiology interpretation and my review He is neurologically intact and no clinical signs or symptoms consistent with cauda equina syndrome will be placed on a steroid and given muscle relaxants He will be encouraged to follow-up with his primary care physician in the outpatient setting and to return immediately should he have new or worsening complaints He is discharged home in stable condition with stable vitals, return precautions reviewed and patient expressed understanding Medical Records Medical records reviewed: Yes I reviewed the patient's medical records. Lab Data Lab results reviewed: Yes I reviewed the patient's lab results. HPI General Date/Time Provider Initiated Documentation: 06/30/22 09:58 . HPI Narrative: This 51-year-old gentleman presents with back pain persistent for the past week. He states he tripped into a folding chair. He states it radiates down his right leg. He does have a history of prior back surgery. He denies any new strength or sensation change. He denies any changes in bowel or bladder. He denies any abdominal discomfort. He denies any additional complaints at this time. Denies history of IV drug abuse Related Data Home Medications Medication Instructions Recorded Confirmed methadone 10 mg tablet 120 mg PO DAILY 12/29/19 06/30/22 sucralfate 1 gram tablet (Carafate) 1 g PO QACHS #90 tabs 05/15/22 06/30/22 pantoprazole 40 mg tablet,delayed 40 mg PO BID #60 tabs 05/16/22 release (Protonix) sumatriptan succinate 50 mg tablet See Rx Instructions PO .COMPLEX 05/16/22 #20 tabs gabapentin 300 mg PO BID 06/26/22 06/30/22 sumatriptan succinate 100 mg 100 mg PO DIRECTED 06/26/22 06/30/22 tablet (Imitrex) cyclobenzaprine 10 mg tablet 10 mg PO TID PRN #10 tabs 06/30/22 prednisone 20 mg tablet 40 mg PO DAILY 5 days #10 tabs 06/30/22 Previous Rx's Medication Instructions Recorded sucralfate 1 gram tablet (Carafate) 1 g PO QACHS #90 tabs 05/15/22 pantoprazole 40 mg tablet,delayed 40 mg PO BID #60 tabs 05/16/22 release (Protonix) sumatriptan succinate 50 mg tablet See Rx Instructions PO .COMPLEX 05/16/22 #20 tabs cyclobenzaprine 10 mg tablet 10 mg PO TID PRN #10 tabs 06/30/22 prednisone 20 mg tablet 40 mg PO DAILY 5 days #10 tabs 06/30/22 Allergies Allergy/AdvReac Type Severity Reaction Status Date / Time No Known Allergies Allergy Unverified 06/30/22 09:49 General Stated Complaint: Nk/Back Pain KERA: 4 Review of Systems All systems reviewed & are unremarkable except as noted in HPI and below PFSH All Active Problems (Updated 06/30/22 @ 13:10 by IKE Gomez) Lumbar strain (Acute) Medical History Migraine Surgical History History of back surgery History of knee surgery Social History Smoking/Tobacco Use Status: Current every day Tobacco Type: cigarettes Smoking risk assessment performed?: Yes Alcohol Intake: former Substance use type: former substance user Details: methadone clinic Do you feel safe at home: Yes Do you feel safe in your relationship?: Yes Exam Narrative Exam Narrative: Lumbar spine tenderness without any visible sign of trauma, no CVA tenderness, no abdominal tenderness, specifically no abdominal bruit or pulsatile mass Neurovascularly intact distally, distal pulses intact, positive straight leg raise on right Sensation intact distally, ambulatory with antalgic although steady gait DTRs intact to bilateral lower extremities, sensation and strength intact bilateral lower extremities Const General: cooperative, comfortable and no acute distress Course Vital Signs Vital signs: Vital Signs Temperature 36.6 C 06/30/22 09:46 Pulse 60 06/30/22 09:46 Respiratory Rate 18 06/30/22 09:46 Blood Pressure 109/73 06/30/22 09:46 Pulse Oximetry 96 06/30/22 09:46 Temperature 36.6 C 06/30/22 09:46 Temperature Source Temporal Artery Scan 06/30/22 09:46 Pulse 60 06/30/22 09:46 Respiratory Rate 18 06/30/22 09:46 Respiratory Effort Non-Labored 06/30/22 09:49 Blood Pressure 109/73 06/30/22 09:46 Blood Pressure Position Sitting 06/30/22 09:46 Pulse Oximetry 96 06/30/22 09:46 Oxygen Delivery Method Room Air 06/30/22 09:46 Oxygen Flow Rate 0 06/30/22 09:46
== END 2022-06-30 13:26 | disposition home or self-care (01) ==
PROVIDERS: Emergency Provider Physician Assistant
DX: S39.012A Strain of muscle, fascia and tendon of lower back, initial encounter (principal); W01.0XXA Fall on same level from slipping, tripping and stumbling without subsequent striking against object, initial encounter
CPT/HCPCS: 99283; 72110; 99284; J7512

== ENCOUNTER 2022-09-12 01:25 | Emergency (ER) | payer MEDICARE, MEDICAID, SELFPAY ==
[2022-09-12 01:30] VITALS: BP 181/96; PULSE 83; RESP 19; TEMP 35.9; O2SAT 95
--- NOTE | 2022-09-12 01:38 | ED.GENADUL_ITS ---
Discharge Plan Disposition Patient Disposition: Home Discharge Details Clinical Impression: Dental caries Primary Care Provider: Maeve,Local ED Provider: Otis Rodriguez Home Meds and New Rx's Prescriptions: New amoxicillin-pot clavulanate 875-125 mg tablet 1 tab PO BID 7 Days Qty: 14 0RF Continued sucralfate [Carafate] 1 gram tablet 1 g PO QACHS Qty: 90 0RF gabapentin 300 mg PO BID sumatriptan succinate [Imitrex] 100 mg tablet 100 mg PO DIRECTED pantoprazole [Protonix] 40 mg tablet,delayed release (DR/EC) 40 mg PO BID Qty: 60 0RF sumatriptan succinate 50 mg tablet See Rx Instructions .ROUTE .COMPLEX Qty: 20 0RF Rx Instructions: take 1 tab at onset of headache; if no relief may repeat 1 tab after at least 2 hrs; max = 4 tabs/24 hr methadone 10 mg Tablet 120 mg PO DAILY cyclobenzaprine 10 mg tablet 10 mg PO TID PRNQty: 10 0RF Discharge Instructions Instructions: Dental Caries (ED) Additional Instructions: Please read all of the information that accompanies these instructions. You were seen in the emergency department for your dental pain. Please follow-up with your dentist as you had planned. If you develop any difficulty swallowing have worsening pain or have any other concerns please return to the emergency department. Medical Decision Making This is a chronically ill appearing but normothermic and not tachycardic 51-year-old male with diffuse dental caries and worsening pain based on percussive tenderness for which I will treat with antibiotics and outpatient dental follow-up. No brawny edema submentally to suggest Ludewig's angina. Range of motion intact in the neck so I am not concerned for retropharyngeal abscess. Uvula midline so I am not concerned for peritonsillar abscess. External ears unremarkable so I am not concerned for mastoiditis. Patient reports having outpatient dental follow-up and have given patient return indications including any difficulty breathing any difficulty swallowing or any fevers. He was given a small jar of benzocaine ointment to use as needed for discomfort. I offered acetaminophen and ibuprofen but he declined as he was planning on taking these when he got home. Of note he reports using these every 6-8 hours and so not concern for unintentional overdose. I gave him his initial dose of amoxicillin clavulanic acid in the ED and sent a prescription for 7-day course to his pharmacy. He was initially quite hypertensive in the emergency department however this improved significantly without intervention. We will proceed with empiric trial of expectant outpatient management. HPI General Date/Time Provider Initiated Documentation: 09/12/22 01:38 . HPI Narrative: This is a 51-year-old male with a history of tobacco use and methadone use now arriving via private vehicle in the setting of upper right dental pain. Patient reports having had multiple rounds of antibiotics in the past. He notes that his last round of antibiotics was multiple months ago. He says that he is due to see a dentist tomorrow in [place] for an extraction. He comes in tonight in setting of worsening pain. He is a daily tobacco user but denies routine ethanol and illicits. He is on methadone. He has had no fevers no difficulty swallowing nor any difficulty breathing. He has not noticed any swelling below his neck. He has not tasted any purulent drainage in his mouth. Related Data Home Medications Medication Instructions Recorded Confirmed methadone 10 mg tablet 120 mg PO DAILY 12/29/19 06/30/22 sucralfate 1 gram tablet (Carafate) 1 g PO QACHS #90 tabs 05/15/22 06/30/22 pantoprazole 40 mg tablet,delayed 40 mg PO BID #60 tabs 05/16/22 release (Protonix) sumatriptan succinate 50 mg tablet See Rx Instructions PO .COMPLEX 05/16/22 #20 tabs gabapentin 300 mg PO BID 06/26/22 06/30/22 sumatriptan succinate 100 mg 100 mg PO DIRECTED 06/26/22 06/30/22 tablet (Imitrex) cyclobenzaprine 10 mg tablet 10 mg PO TID PRN #10 tabs 06/30/22 amoxicillin 875 mg-potassium 1 tab PO BID 7 days #14 tabs 09/12/22 clavulanate 125 mg tablet Previous Rx's Medication Instructions Recorded sucralfate 1 gram tablet (Carafate) 1 g PO QACHS #90 tabs 05/15/22 pantoprazole 40 mg tablet,delayed 40 mg PO BID #60 tabs 05/16/22 release (Protonix) sumatriptan succinate 50 mg tablet See Rx Instructions PO .COMPLEX 05/16/22 #20 tabs cyclobenzaprine 10 mg tablet 10 mg PO TID PRN #10 tabs 06/30/22 amoxicillin 875 mg-potassium 1 tab PO BID 7 days #14 tabs 09/12/22 clavulanate 125 mg tablet Allergies Allergy/AdvReac Type Severity Reaction Status Date / Time No Known Allergies Allergy Unverified 06/30/22 09:49 General Stated Complaint: DentalOral KERA: 4 PFSH All Active Problems (Updated 09/12/22 @ 01:52 by Otis Rodriguez MD) Dental caries (Acute) Medical History Migraine Surgical History History of back surgery History of knee surgery Social History Smoking/Tobacco Use Status: Current every day Tobacco Type: cigarettes Smoking risk assessment performed?: Yes Alcohol Intake: former Substance use type: former substance user Details: methadone clinic Do you feel safe at home: Yes Do you feel safe in your relationship?: Yes Exam Narrative Exam Narrative: General: Chronically ill-appearing in no acute distress speaking in complete sentences. Head: Normocephalic, atraumatic Ear, nose, mouth, throat: Normal voice, handling secretions normally. Poor dentition throughout oropharynx with numerous dental caries and broken teeth. No significant buccal or lingual swelling. External ear unremarkable. Neck: Trachea midline. No meningismus. Cardiovascular: Well-perfused distal extremities. Respiratory: Nonlabored respiration. Gastrointestinal: Nondistended abdomen. Musculoskeletal: No edema. Moving all 4 extremities spontaneously. Skin: Normal for age and race, grossly normal temperature and turgor. No acute rash. Neurologic: Alert and appropriate, no apparent acute deficits. Psychiatric: Mood and manner are appropriate. Grooming and personal hygiene are appropriate. Course Vital Signs Vital signs: Vital Signs Temperature 35.9 C L 09/12/22 01:30 Pulse 83 09/12/22 01:30 Respiratory Rate 19 09/12/22 01:30 Blood Pressure 181/96 H 09/12/22 01:30 Pulse Oximetry 95 09/12/22 01:30 Temperature 35.9 C L 09/12/22 01:30 Temperature Source Tympanic 09/12/22 01:30 Pulse 83 09/12/22 01:30 Respiratory Rate 19 09/12/22 01:30 Respiratory Effort Normal 09/12/22 01:33 Blood Pressure 181/96 H 09/12/22 01:30 Blood Pressure Position Sitting 09/12/22 01:30 Pulse Oximetry 95 09/12/22 01:30 Oxygen Delivery Method Room Air 09/12/22 01:30 Oxygen Flow Rate 0 09/12/22 01:30 Pain Level 10 09/12/22 01:30
[2022-09-12 01:53] VITALS: BP 132/99
[2022-09-12] MEDS: Amoxicillin 875/Clav. 125 TAB PO (01:54)
[2022-09-12] MEDS: Benzocaine 20% Gel 30 GM JAR MM (01:55)
== END 2022-09-12 01:59 | disposition home or self-care (01) ==
PROVIDERS: Emergency Provider Emergency Medicine
DX: R68.84 Jaw pain (principal)
CPT/HCPCS: 99283

== ENCOUNTER 2022-09-25 17:45 | Emergency (ER) | payer MEDICARE, MEDICAID, SELFPAY ==
--- NOTE | 2022-09-25 17:51 | NUR.NOTE ---
1548: Pt not in WR when called by RN Nursing Note:
--- OUTSIDE RECORDS SUMMARY | 2022-09-25 17:54 | XMS_ITS | Continuity of Care Document ---
Author Name Unknown Organization [facility] Address [address] [place] [address] Encounter [facility] Date(s): 05/12/22 - 05/12/22 [facility] [address] [place] [address] us Encounter Diagnosis Pharyngitis(Discharge Diagnosis) - 05/12/22 Esophagitis(Discharge Diagnosis) - 05/12/22 Pain, dental(Discharge Diagnosis) - 05/12/22 Attending Physician: Sultana Briseno MD Admitting Physician: Sultana Briseno MD Allergies, Adverse Reactions, Alerts No Known Medication Allergies Assessment and Plan Diagnostic Tests Pending * Tick-Borne Panel PCR, WB PLASCENCIA 05/12/22 * Blood Culture 05/12/22 * Blood Culture 05/12/22 Functional Status 05/12/22 Family Member Travel History No recent t ravel Recent Travel History No recent travel Other exposure to Infectious Disease Non e Medications !-Augmentin 875 mg-125 mg oral tablet 1 tab, Oral, every 12 hr, # 14 tab, 0 Refill(s), Pharmacy: [id number], 170, cm, 05/12/22 18:47:00 EST, Height/Length Dosing, 75, kg, 05/12/22 18:47:00 EST, Weight Dosing Start Date: 05/12/22 Stop Date: 05/19/22 Status: Ordered methadone 0 Refill(s) Start Date: 05/12/22 Status: Ordered nystatin 100,000 units/mL oral suspension 400,000 units = 4 mL, Oral, QID, # 120 mL, 0 Refill(s), Pharmacy: [id number], 170, cm, 05/12/22 18:47:00 EST, Height/Length Dosing, 75, kg, 05/12/22 18:47:00 EST, Weight Dosing Start Date: 05/12/22 Status: Ordered predniSONE 0 Refill(s) Start Date: 05/12/22 Status: Ordered Results Laboratory List Name Date C-Reactive Protein High Sensitivity 04/16 02/03 CBC w/ Diff 05/12/22 Comprehensive Metabolic Panel 05/12/22 Lipase Level 05/12/22 Procalcitonin 05/12/22 Troponin-I 05/12/22 SARS-CoV-2 (COVID-19)/Flu/RSV (GeneXpert ) 05/12/22 Strep A (ID NOW) 05/12/22 Automated Diff 05/12/22 Most recent to oldest [Reference Range]: 1 WBC [5.0-10.0 x10^3/mcL] 10.6 x10^3/mcL *HI* (05/12/22 7:37 PM) RBC [4.6-6.0 x10^6/mcL] 4.9 x10^6/mcL (05/12/22 7:37 PM) Neutro Auto [40.0-75.0 %] 58.6 % (05/12/22 7:37 PM) Lymph Auto [20.0-50.0 %] 33.6 % (05/12/22 7:37 PM) Dupage Auto [2.0-15.0 %] 5.0 % (05/12/22 7:37 PM) Basophil Auto [0.0-1.0 %] 0.6 % (05/12/22 7:37 PM) BUN [7-18 mg/dL] 25 mg/dL *HI* (05/12/22 7:37 PM) Glucose Level [74-106 mg/dL] 109 mg/dL *HI* (05/12/22 7:37 PM) Potassium Level [3.5-5.1 mmol/L] 3.7 mmo l/L (05/12/22 7:37 PM) MCV [80.0-96.0] 90.3 (05/12/22 7:37 PM) AST [15-37 unit/L] 13 unit/L *LOW* (05/12/22 7:37 PM) ALT [16-63 unit/L] 16 unit/L (05/12/22 7:37 PM) MCHC [31.0-35.0 g/dL] 33.4 g/dL (05/12/22 7:37 PM) Troponin-I [0.0-76.2 pg/mL] 9.6 pg/mL (05/12/22 7:37 PM) Sodium Level [136-145 mmol/L] 137 mmol/L (05/12/22 7:37 PM) Hct [41.0-51.0 %] 44.0 % (05/12/22 7:37 PM) Lipase Level [16-77 unit/L] 21 unit/L (05/12/22 7:37 PM) Calcium Level [8.5-10.1 mg/dL] 9.3 mg/dL (05/12/22 7:37 PM) Albumin Level [3.4-5.0 g/dL] 4.6 g/dL (05/12/22 7:37 PM) Protein Total [6.4-8.2 g/dL] 8.2 g/dL (05/12/22 7:37 PM) MCH [26.0-32.0 pg] 30.2 pg (05/12/22 7:37 PM) Neutro Absolute 6.2 x10^3/mcL *NA* (05/12/22 7:37 PM) Bilirubin Total [0.2-1.0 mg/dL] 0.8 mg/d L (05/12/22 7:37 PM) Hgb [14.0-18.0 g/dL] 14.7 g/dL (05/12/22 7:37 PM) Alk Phos [46-146 unit/L] 69 unit/L (05/12/22 7:37 PM) Platelets [130-450 x10^3/mcL] 215 x10^3/ mcL (05/12/22 7:37 PM) CO2 [21-32 mmol/L] 28 mmol/L (05/12/22 7:37 PM) eGFR Non-AA [>=60] 82 (05/12/22 7:37 PM) eGFR AA [>=60] 82 (05/12/22 7:37 PM) Chloride Level [98-107 mmol/L] 100 mmol/ L (05/12/22 7:37 PM) Procalcitonin [0.00-0.50 ng/mL] <0.15 ng /mL (05/12/22 7:37 PM) RDW-CV [11.5-17.0 %] 12.5 % (05/12/22 7:37 PM) Imm Gran Auto [0.0-0.9 %] 0.2 % (05/12/22 7:37 PM) CRP High Sens [0.00-3.00 mg/L] 4.41 mg/L *HI* (05/12/22 7:37 PM) Strep A -IDNOW [Not Detected] Not Detect ed (05/12/22 7:26 PM) Creatinine Level [0.70-1.30 mg/dL] 1.08 mg/dL (05/12/22 7:37 PM) 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 Unknown *NA* (05/12/22 7:26 PM) Hospitalized due to COVID-19? Unknown *NA* (05/12/22 7:26 PM) In ICU? Unknown *NA* (05/12/22 7:26 PM) Group care resident? Unknown *NA* (05/12/22 7:26 PM) status? Unknown *NA* (05/12/22 7:26 PM) SARS-CoV-2(Covid19)PCR(GXpert COVFLURSV) [Negative] Negative (05/12/22 7:26 PM) Flu A (GXpert COVFLURSV) [Negative] Nega tive (05/12/22 7:26 PM) RSV (GXpert COVFLURSV) [Negative] Negati ve (05/12/22 7:26 PM) Flu B (GXpert COVFLURSV) [Negative] Nega tive (05/12/22 7:26 PM) Eos, Auto [1.0-6.0 %] 2.0 % (05/12/22 7:37 PM) Vital Signs Most recent to oldest [Reference Range]: 1 2 3 Temperature Temporal Artery [36-38 Deg C] 36.8 Deg C (05/12/22 7:47 PM) 35.7 Deg C *LOW* (05/12/22 6:42 PM) Peripheral Pulse Rate [60-100 bpm] 53 bpm *LOW* (05/12/22 8:38 PM) 53 bpm *LOW* (05/12/22 7:47 PM) 81 bpm (05/12/22 6:42 PM) Respiratory Rate [12-24 br/min] 16 br/min (05/12/22 7:47 PM) 18 br/min (05/12/22 6:42 PM) Blood Pressure [90-140/60-90 mmHg] 125/76mmHg (05/12/22 8:38 PM) 130/87mmHg (05/12/22 7:47 PM) 143/101mmHg *HI* (05/12/22 6:42 PM) Weight Dosing 75.00 kg (05/12/22 6:47 PM) Weight Estimated 75.00 kg (05/12/22 6:42 PM) Height/Length Dosing 170.000 cm (05/12/22 6:47 PM) Height/Length Estimated 170.000 cm (05/12/22 6:42 PM) Social History Social History Type Response Tobacco Current everyday tob acco user Tobacco Use:. Sex Male Hospital Discharge Instructions Patient Education 05/12/2022 20:09:21 Dental Pain, Cldi-im-Cahw Dental Pain Dental pain is often a sign that something is wrong with your teeth or gums. You can also have painafter a dental treatment. If you have dental pain, it is important to contact your dentist, especially if the cause of the pain is not known. Dental pain may hurt a lot or a little and can be caused by many things, including: ??? Tooth decay (cavities or caries). ??? Infection. ??? The inner part of the tooth being filled with pus (an abscess). ??? Injury. ??? A crack in the tooth. ??? Gums that move back and expose the root of a tooth. ??? Gum disease. ??? Abnormal grinding or clenching of teeth. ??? Not taking good care of your teeth. Sometimes the cause of pain is not known. You may have pain all the time, or it may happen only when you are: ??? Chewing. ??? Exposed to hot or cold temperatures. ??? Eating or drinking foods or drinks that have a lot of sugar in them, such as soda or candy. Follow these instructions at home: Medicines ??? Take stbw-qbk-uqkojol and prescription medicines only as told by your dentist. ??? If you were prescribed an antibiotic medicine, take it as told by your dentist. Do not stop taking it even if you start to feel better. Eating and drinking Do not eat foods or drinks that cause you pain. These include: ??? Very hot or very cold foods or drinks. ??? Sweet or sugary foods or drinks. Managing pain and swelling ??? If told, put ice on the painful area of your face. To do this: ??? Put ice in a plastic bag. ??? Place a towel between your skin and the bag. ??? Leave the ice on for 20 minutes, 2???3 times a day. ??? Take off the ice if your skin turns bright red. This is very important. If you cannot feel pain, heat, or cold, you have a greater risk of damage to the area. Brushing your teeth ??? Gaffney your teeth twice a day using a fluoride toothpaste. ??? Use a toothpaste made for sensitive teeth as told by your dentist. ??? Use a soft toothbrush. General instructions ??? Floss your teeth at least once a day. ??? Do not put heat on the outside of your face. ??? Rinse your mouth often with salt water. To make salt water, dissolve ?1 tsp (3???6 g) of salt in 1 cup (237 mL) of warm water. ??? Watch your dental pain. Let your dentist know if there are any changes. ??? Keep all follow-up visits. Contact a dentist if: ??? You have dental pain and you do not know why. ??? Medicine does not help your pain. ??? Your symptoms get worse. ??? You have new symptoms. Get help right away if: ??? You cannot open your mouth. ??? You are having trouble breathing or swallowing. ??? You have a fever. ??? Your face, neck, or jaw is swollen. These symptoms may be an emergency. Get help right away. Call your local emergency services (911 inthe [place] ??? Do not wait to see if the symptoms will go away. ??? Do not drive yourself to the hospital. Summary ??? Dental pain may be caused by many things, including tooth decay, injury, or infection. In some cases, the cause is not known. ??? Dental pain may hurt a lot or very little. You may have pain all the time, or you may have it only when you eat or drink. ??? Take dmvg-bmj-zsxpjke and prescription medicines only as told by your dentist. ??? Watch your dental pain for any changes. Let your dentist know if symptoms get worse. This information is not intended to replace advice given to you by your health care provider. Make sure you discuss any questions you have with your health care provider. Document Revised: 03/06/2021 Document Reviewed: 03/06/2021 [employer] Patient Education ?? 2021 [employer] 05/12/2022 20:09:16 Esophagitis Esophagitis Esophagitis is inflammation of the esophagus. The esophagus is the tube that carries food from the mouth to the stomach. Esophagitis can cause soreness or pain in the esophagus. This condition can make it difficult and painful to swallow. What are the causes? Most causes of esophagitis are not serious. Common causes of this condition include: ??? Gastroesophageal reflux disease (GERD). This is when stomach contents move back up into the esophagus (reflux). ??? Repeated vomiting. ??? An allergic reaction, especially caused by food allergies (eosinophilic esophagitis). ??? Injury to the esophagus by swallowing large pills with or without water, or swallowing certain types of medicines. ??? Swallowing harmful chemicals, such as household cleaning products. ??? Drinking a lot of alcohol. ??? An infection of the esophagus. This most often occurs in people who have a weakened immune system. ??? Radiation or chemotherapy treatment for cancer. ??? Certain diseases such as sarcoidosis, Crohn's disease, and scleroderma. What are the signs or symptoms? Symptoms of this condition include: ??? Difficult or painful swallowing. ??? Pain with swallowing acidic liquids, such as citrus juices. You may also have pain when you burp. ??? Chest pain and difficulty breathing. ??? Nausea and vomiting. ??? Pain in the abdomen. ??? Weight loss. ??? Ulcers in the mouth and white patches in the mouth (candidiasis). ??? Fever. ??? Coughing up blood or vomiting blood. ??? Stool that is black, tarry, or bright red. How is this diagnosed? This condition may be diagnosed based on your medical history and a physical exam. You may also have other tests, including: ??? A test to examine your esophagus and stomach with a small flexible tube with a camera (endoscopy). ??? A test that measures the acidity level in your esophagus. ??? A test that measures how much pressure is on your esophagus. ??? A barium swallow or modified barium swallow to show the shape, size, and functioning of your esophagus. ??? Allergy tests. How is this treated? Treatment for this condition depends on the cause of your esophagitis. In some cases, steroids or other medicines may be given to help relieve your symptoms or to treat the underlying cause of your condition. You may have to make some lifestyle changes, such as: ??? Avoiding alcohol. ??? Quitting any products that contain nicotine or tobacco. These products include cigarettes, chewing tobacco, and vaping devices, such as e-cigarettes. If you need help quitting, ask your health care provider. ??? Changing your diet. ??? Exercising. ??? Changing your sleep habits and your sleep environment. Follow these instructions at home: Medicines ??? Take jtpp-kbj-afvjrzm and prescription medicines only as told by your health care provider. ??? Do not take aspirin, ibuprofen, or other NSAIDs unless your health care provider told you to doso. ??? If you have trouble taking pills: ??? Use a pill splitter to decrease the size of the pill. This will decrease the chance of the pillgetting stuck or injuring your esophagus. ??? Drink water after you take a pill. Eating and drinking ??? Avoid foods and drinks that seem to make your symptoms worse. ??? Follow a diet as recommended by your health care provider. This may involve avoiding foods and drinks such as: ??? Coffee and tea, with or without caffeine. ??? Drinks that contain alcohol. ??? Energy drinks and sports drinks. ??? Carbonated drinks or sodas. ??? Chocolate and cocoa. ??? Peppermint and mint flavorings. ??? Garlic and onions. ??? Horseradish. ??? Spicy and acidic foods, including peppers, chili powder, joseph powder, vinegar, hot sauces, andbarbecue sauce. ??? [place] fruit juices and citrus fruits, such as oranges, en, and limes. ??? Tomato-based foods, such as red sauce, chili, salsa, and pizza with red sauce. ??? Fried and fatty foods, such as donuts, lebanese fries, potato chips, and high- fat dressings. ??? High-fat meats, such as hot dogs and fatty cuts of red and white meats, such as rib eye steak, sausage, ham, and freed. ??? High-fat dairy items, such as whole milk, butter, and cream cheese. Lifestyle ??? Eat small, frequent meals instead of large meals. ??? Avoid drinking large amounts of liquid with your meals. ??? Avoid eating meals during the 2???3 hours before bedtime. ??? Avoid lying down right after you eat. ??? Do not exercise right after you eat. ??? Do not use any products that contain nicotine or tobacco. These products include cigarettes, chewing tobacco, and vaping devices, such as e-cigarettes. If you need help quitting, ask your health care provider. General instructions ??? Pay attention to any changes in your symptoms. Let your health care provider know about them. ??? Wear loose-fitting clothing. Do not wear anything tight around your waist that causes pressure on your abdomen. ??? Raise (elevate) the head of your bed about 6 inches (15 cm). You may need to use a wedge to do this. ??? Try relaxation strategies such as yoga, deep breathing, or meditation to manage stress. If you need help reducing stress, ask your health care provider. ??? If you are overweight, reduce your weight to an amount that is healthy for you. Ask your healthcare provider for guidance about a safe weight loss goal. ??? Keep all follow-up visits. This is important. Contact a health care provider if: ??? You have new symptoms. ??? You have unexplained weight loss. ??? You have difficulty swallowing, or it hurts to swallow. ??? You have wheezing or a cough that does not go away. ??? Your symptoms do not improve with treatment. ??? You have frequent heartburn for more than two weeks. Get help right away if: ??? You have sudden severe pain in your arms, neck, jaw, teeth, or back. ??? You suddenly feel sweaty, dizzy, or light-headed. ??? You have chest pain or shortness of breath. ??? You vomit and the vomit is green, yellow, or black, or it looks like blood or coffee grounds. ??? Your stool is red, bloody, or black. ??? You have a fever. ??? You cannot swallow, drink, or eat. These symptoms may represent a serious problem that is an emergency. Do not wait to see if the symptoms will go away. Get medical help right away. Call your local emergency services (911 in the [place] Do not drive yourself to the hospital. Summary ??? Esophagitis is inflammation of the esophagus. ??? Most causes of esophagitis are not serious. ??? Follow your health care provider's instructions about eating and drinking. ??? Contact a health care provider if you have new symptoms, have weight loss, or coughing that does not stop. ??? Get help right away if you have severe pain in the arms, neck, jaw, teeth, or back, or if you have chest pain, shortness of breath, or fever. This information is not intended to replace advice given to you by your health care provider. Make sure you discuss any questions you have with your health care provider. Document Revised: 12/10/2020 Document Reviewed: 12/10/2020 [employer] Patient Education ?? 2021 [employer]. 05/12/2022 20:09:14 Sore Throat Sore Throat A sore throat is pain, burning, irritation, or scratchiness in the throat. When you have a sore throat, you may feel pain or tenderness in your throat when you swallow or talk. Many things can cause a sore throat, including: ??? An infection. ??? Seasonal allergies. ??? Dryness in the air. ??? Irritants, such as smoke or pollution. ??? Radiation treatment for cancer. ??? Gastroesophageal reflux disease (GERD). ??? A tumor. A sore throat is often the first sign of another sickness. It may happen with other symptoms, such as coughing, sneezing, fever, and swollen neck glands. Most sore throats go away without medical treatment. Follow these instructions at home: Medicines ??? Take yzln-dpg-umgpxmx and prescription medicines only as told by your health care provider. ??? Children often get sore throats. Do not give your child aspirin because of the association withReye's syndrome. ??? Use throat sprays to soothe your throat as told by your health care provider. Managing pain To help with pain, try: ??? Sipping warm liquids, such as broth, herbal tea, or warm water. ??? Eating or drinking cold or frozen liquids, such as frozen ice pops. ??? Gargling with a mixture of salt and water 3???4 times a day or as needed. To make salt water, completely dissolve ?1 tsp (3???6 g) of salt in 1 cup (237 mL) of warm water. ??? Sucking on hard candy or throat lozenges. ??? Putting a cool-mist humidifier in your bedroom at night to moisten the air. ??? Sitting in the bathroom with the door closed for 5???10 minutes while you run hot water in the shower. General instructions ??? Do not use any products that contain nicotine or tobacco. These products include cigarettes, chewing tobacco, and vaping devices, such as e-cigarettes. If you need help quitting, ask your health care provider. ??? Rest as needed. ??? Drink enough fluid to keep your urine pale yellow. ??? Wash your hands often with soap and water for at least 20 seconds. If soap and water are not available, use hand organic chemistry professor. Contact a health care provider if: ??? You have a fever for more than 2???3 days. ??? You have symptoms that last for more than 2???3 days. ??? Your throat does not get better within 7 days. ??? You have a fever and your symptoms suddenly get worse. Get help right away if: ??? You have difficulty breathing. ??? You cannot swallow fluids, soft foods, or your saliva. ??? You have increased swelling in your throat or neck. ??? You have persistent nausea and vomiting. These symptoms may represent a serious problem that is an emergency. Do not wait to see if the symptoms will go away. Get medical help right away. Call your local emergency services (911 in the [place] Do not drive yourself to the hospital. Summary ??? A sore throat is pain, burning, irritation, or scratchiness in the throat. Many things can cause a sore throat. ??? Take esqu-lpo-cdzphez medicines only as told by your health care provider. ??? Rest as needed. ??? Drink enough fluid to keep your urine pale yellow. ??? Contact a health care provider if your throat does not get better within 7 days. This information is not intended to replace advice given to you by your health care provider. Make sure you discuss any questions you have with your health care provider. Document Revised: 08/28/2021 Document Reviewed: 08/28/2021 [employer] Patient Education ?? 2021 [employer]. Follow Up Care 05/12/2022 18:42:02 With:surgery Address: When:2 to 4 days Physician Emergency department Note * Maikol Alarcon MD: PERFORM Event Display: ED Note Physician Authored Date: [id number] HOLLEY GUAMAN :1970 Age:51 years Sex:Male Visit Date:05/12/2022 Basic Information Time Seen: Maikol Alarcon MD / 05/12/2022 18:58 Chief Complaint Pt c/o neck pain, ear pain, and throat pain. Pt reports he was seen at [facility] 3 time this week and had full work up done, has appointment this Thursday but cannot wait. Poor PO intake last week r/t pain. History Of Present Illness: 51 yo male smoker presents for 2nd opinion, has many symptoms for which he has been to [facility] for 3 times in the last couple of weeks.?? C/o sore throat making it hurt to eat., ears hurt, had temp of 101 at home last time 2 days ago.?? c/o seats,, nasal congestion, neck soreness bilateral, point overSCM muscles.?? has many dental caries.?? is concerned he has blood infection or sepsis.?? is on methadone, no recent dose adjustment.?? had some drainage out of right ear a couple days ago.?? has migraines and symptoms has triggered some migraines.?? no rash or reported tick bites.?? was given clindamycin for 7 days, which he finished 4 days ago.?? didn't see much improvement.?? was also on prednisone at some point in the last couple of weeks.?? Lives in [facility], does not have a PCP.?? no major cough or chest pain.?? hurt in his chest when he coughs.?? no CAD on history.?? Knows he needs tosee an oral surgeon for dental caries but has not been able to get in. has an appointment with general surgery in for EGD at [facility]. ?? High eventually obtain records from [facility]. ??On 09 May the patient had a CT??of soft tissue of neck and chest??that was done.?? CT of the neck did not show any significant anomalies. ??Small physiologic lymph nodes only. ??CT of chest showed??signs of emphysema.?? At [facility] she was also prescribed pantoprazole Pepcid??prior to that he was given some HurriCaine??20% gel??to help his throat.??Had been on clindamycin and prednisone prior. Review of Systems: Constitutional:??mild??fever,? Skin:??no??Jaundice,??no??rash,??no??lesions,??no??petechiae ENMT:??mild??ear pain,??moderate??sore throat,??mild??congestion,??no??hoarseness Respiratory:??no??shortness of breath,??mild??cough,??no??orthopnea,??no??wheezing Cardiovascular:?? see HPI, chest hurts for last couple of weeks but no anginal pattern ,??no??palpitations,??no??edema Gastrointestinal:??mild??nausea,??no??vomiting,??no??diarrhea,??no??GI bleeding, some upper abd discomfort Genitourinary:??no??dysuria,??no??hematuria,??no??discharge,??no??pain Musculoskeletal:??no??back pain,??no??trauma, some neck pain bilat Neurologic:??mild??headache,??no??dizziness,??no??numbness,??no??weakness ?? Heme/Lymph:??no??bleeding tendency,??no??bruising tendency,??no??petechiae,??no??swollen nodes ?? Physical Exam Vitals & Measurements T:??36.8?C ??(Temporal Artery)?? HR:??53??(Peripheral)?? RR:??16?? BP:??125/76?? SpO2:??100%?? HT:??170.000??cm?? WT:??75.00??kg??(Estimated)?? Pain Score:??7?? O2 Therapy:??Room air?? General:??alert,??no acute distress. does not look septic, skin warm and dry, normal mentation, no respiratory distress. Skin:??warm,??dry. Head:??no??trauma,??normocephalic. Neck:??trachea??midline,??no??adenopathy,??moderate??tenderness notably over the rvohfz-tmsbsg-zvpbpag muscles bilat.?? no masses or Bill's angina or significant adenopathy.?? supple, no meningeal signs.?? no goiter.?? no inflammation or abscess seen Eye:??normal??conjunctiva, sclera??clear. EOM nl, Nose:?? Normal Mouth and throat:?? severe dental caries noted widespread but no gingivitis or abscess, no trismus,no Luwog's,?? despite subjective complaint, throat overall appears benign.?? no exsudate, no thrustseen.?? minimal erythema at most.?? no tonsillar enlargement Cardiovascular:??regular??rate and rhythm,??normal??peripheral perfusion. Respiratory: lungs??CTA, respirations??non-labored. no adventitious sounds heard. Chest wall:??no??deformity. Gastrointestinal:??soft,??non distended,??mild??tenderness subjectively upper abdomen,??no??guarding. Cardona's negative, Mcburney's negative Extremities:??no??deformity,??no??trauma. Neurological:??oriented??x 4, LOC??appropriate for age,?? , speech??normal. no facial assymmetry Psychiatric:??cooperative, affect??appropriate for age, Medical Decision Making: And appeared hemodynamically stable here. ??Does not appear to be septic. ??Ultimately endorses that he still has some dental pain upper aspect which is quite bothersome.?? Unclear if he got better with clindamycin.?? But his teeth are hurting significantly.?? He states that he is taking the Pepcidand pantoprazole.?? Does not seem that that has improved much.?? Although I did not see any obviousthrush??in case he may have some esophagitis due to and will write for some nystatin??oral suspension.?? He is set up to have an EGD coming up this week.?? He endorses that he did snort some cocaine and heroin last week but not since.?? Counseled him on staying away from that.?? Blood cultures are?? running. ??He already had a scan of his neck and chest.?? Went over the results from report from??[facility]. ??Ultimately here he got Imitrex but he got a migraine, he also got some IV fluids and Toradol.?? He was stable??and in no acute distress. ??No signs of sepsis??discharged in stable condition Procedure No Qualifying Data Assessment/Plan 1.??Pharyngitis??J02.9 Ordered: !-Augmentin 875 mg-125 mg oral tablet, 1 tab, Oral, every 12 hr, # 14 tab, 0 Refill(s), Pharmacy: [facility], 170, cm, 05/12/22 18:47:00 EST, Height/Length Dosing, 75, kg, 05/12/22 18:47:00 EST, Weight Dosing nystatin 100,000 units/mL oral suspension, 400,000 units = 4 mL, Oral, QID, # 120 mL, 0 Refill(s), Pharmacy: [facility], 170, cm, 05/12/22 18:47:00 EST, Height/Length Dosing, 75, kg, 05/12/22 18:47:00 EST, Weight Dosing ?? 2.??Esophagitis??K20.90 Ordered: !-Augmentin 875 mg-125 mg oral tablet, 1 tab, Oral, every 12 hr, # 14 tab, 0 Refill(s), Pharmacy: [facility], 170, cm, 05/12/22 18:47:00 EST, Height/Length Dosing, 75, kg, 05/12/22 18:47:00 EST, Weight Dosing nystatin 100,000 units/mL oral suspension, 400,000 units = 4 mL, Oral, QID, # 120 mL, 0 Refill(s), Pharmacy: [facility], 170, cm, 05/12/22 18:47:00 EST, Height/Length Dosing, 75, kg, 05/12/22 18:47:00 EST, Weight Dosing ?? 3.??Pain, dental??K08.89 Ordered: !-Augmentin 875 mg-125 mg oral tablet, 1 tab, Oral, every 12 hr, # 14 tab, 0 Refill(s), Pharmacy: [facility], 170, cm, 05/12/22 18:47:00 EST, Height/Length Dosing, 75, kg, 05/12/22 18:47:00 EST, Weight Dosing nystatin 100,000 units/mL oral suspension, 400,000 units = 4 mL, Oral, QID, # 120 mL, 0 Refill(s), Pharmacy: [facility], 170, cm, 05/12/22 18:47:00 EST, Height/Length Dosing, 75, kg, 05/12/22 18:47:00 EST, Weight Dosing ?? Orders: amoxicillin-clavulanate 875 mg-125 mg oral tablet, 1 tab, Oral, Tab, Once, Antibiotic Indication Other (specify in order comments), First Dose: 05/12/22 21:06:00 EST, Stop Date: 05/12/22 21:06:00 EST, Physician Stop, STAT Blood Culture, Blood, Stat collect, ST - Stat, 05/12/22 19:17:00 EST, Once, Nurse collect, Print Label Blood Culture, Blood, Stat collect, ST - Stat, 05/12/22 19:17:00 EST, Once, Nurse collect, Print Label Discharge Patient, 05/12/22 21:06:00 EST, Home Independently, Constant Indicator Drug Screen Urine, Urine, Stat Collect, 05/12/22 19:16:00 EST, Once, Nurse collect, Print Label Tick-Borne Panel PCR, WB PLASCENCIA, Blood, Routine, 05/12/22 19:16:00 EST, Once, Nurse collect Urinalysis with Micro if Indicated and Culture if Indicated, Urine, Stat Collect, 05/12/22 19:16:00EST, Once, Nurse collect, Print Label XR Chest 1 View, 05/12/22 19:16:00 EST, Stat, Reason: dyspnea, Transport Mode: Stretcher, Exam to be performed outside organization? Patient Education Dental Pain, Irln-pc-Ejgy Esophagitis Sore Throat Follow Up With When Contact Information surgery Within 2 to 4 days Additional Instructions: Medication Reconciliation New Prescription amoxicillin-clavulanate (!-Augmentin 875 mg-125 mg oral tablet)1 tab Oral (given by mouth) every 12hours for 7 Days. Refills: 0. ?? nystatin (nystatin 100,000 units/mL oral suspension)4 Milliliters Oral (given by mouth) 4 times a day. Refills: 0. ?? Unchanged methadone ?? predniSONE Problem List/Past Medical History Ongoing No qualifying data Historical No qualifying data Medication Administration Given 0.9% NaCl bolus, 1000 mL, IV Bolus SUMAtriptan 6 mg/0.5 mL subcutaneous solution, 6 mg, Subcutaneous Toradol, 30 mg, IV Bolus Allergies No Known Medication Allergies Social History Electronic Cigarette/Vaping Electronic Cigarette Use: Never. Tobacco Current everyday tobacco user Tobacco Use:. Diagnostic Results ECG ekg shows NSR, early repolarization pattern slight, normal variant, no ischemic changes acutely Lab Results CBC and Differential?? LATEST RESULTS?? WBC?? 05/12/22 19:37?? 10.6 ??High?? RBC?? 05/12/22 19:37?? 4.9?? Hgb?? 05/12/22 19:37?? 14.7?? Hct?? 05/12/22 19:37?? 44.0?? MCV?? 05/12/22 19:37?? 90.3?? MCH?? 05/12/22 19:37?? 30.2?? MCHC?? 05/12/22 19:37?? 33.4?? RDW-CV?? 05/12/22 19:37?? 12.5?? Platelets?? 05/12/22 19:37?? 215?? Neutro Auto?? 05/12/22 19:37?? 58.6?? Lymph Auto?? 05/12/22 19:37?? 33.6?? Dupage Auto?? 05/12/22 19:37?? 5.0?? Eos, Auto?? 05/12/22 19:37?? 2.0?? Basophil Auto?? 05/12/22 19:37?? 0.6?? Imm Gran Auto?? 05/12/22 19:37?? 0.2?? Neutro Absolute?? 05/12/22 19:37?? 6.2? Routine Chemistry?? LATEST RESULTS?? Sodium Level?? 05/12/22 19:37?? 137?? Potassium Level?? 05/12/22 19:37?? 3.7?? Chloride Level?? 05/12/22 19:37?? 100?? CO2?? 05/12/22 19:37?? 28?? Alk Phos?? 05/12/22 19:37?? 69?? AST?? 05/12/22 19:37?? 13 ??Low?? ALT?? 05/12/22 19:37?? 16?? BUN?? 05/12/22 19:37?? 25 ??High?? Glucose Level?? 05/12/22 19:37?? 109 ??High?? Creatinine Level?? 05/12/22 19:37?? 1.08?? eGFR AA?? 05/12/22 19:37?? 82?? eGFR Non-AA?? 05/12/22 19:37?? 82?? Calcium Level?? 05/12/22 19:37?? 9.3?? Protein Total?? 05/12/22 19:37?? 8.2?? Albumin Level?? 05/12/22 19:37?? 4.6?? Bilirubin Total?? 05/12/22 19:37?? 0.8?? Lipase Level?? 05/12/22 19:37?? 21?? CRP High Sens?? 05/12/22 19:37?? 4.41 ??High? Cardiac Isoenzymes?? LATEST RESULTS?? Troponin-I?? 05/12/22 19:37?? 9.6? Endocrinology?? LATEST RESULTS?? Procalcitonin?? 05/12/22 19:37?? <0.15? Infectious Disease?? LATEST RESULTS?? Strep A -IDNOW?? 05/12/22 19:26?? Not Detected?? 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 Symptomatic as defined by CDC??? 05/12/22 19:26?? Unknown?? Hospitalized due to COVID-19??? 05/12/22 19:26?? Unknown?? In ICU??? 05/12/22 19:26?? Unknown?? Group care resident??? 05/12/22 19:26?? Unknown?? status??? 05/12/22 19:26?? Unknown?? SARS-CoV-2(Covid19)PCR([facility] COVFLURSV)?? 05/12/22 19:26?? Negative?? Flu A ([facility] COVFLURSV)?? 05/12/22 19:26?? Negative?? Flu B ([facility] COVFLUR[facility])?? 05/12/22 19:26?? Negative?? RSV ([facility] COVFLUR[facility])?? 05/12/22 19:26?? Negative? Electronically Signed on 05/12/22 09:10 PM Maikol Alarcon MD Emergency department Discharge instructions * Maikol Alarcon MD: PERFORM Event Display: ED Discharge Information Authored Date: [id number] HOLLEY GUAMAN :1970 Age:51 years Sex:Male Visit Date:05/12/2022 Discharge Instructions We would like to thank you for allowing us to assist you with your healthcare needs. The following includes patient education materials and information regarding your injury/illness. Diagnosis from Today's Visit Pharyngitis Esophagitis Pain, dental Discharge Vitals Temperature??(Temporal Artery) 98.2 ??F (36.8 ??C) Heart Rate??(Peripheral) 53 Respiratory Rate?? 16 Blood Pressure?? 125/76?? Height?? 66.93 in (170.000 cm) Weight??(Estimated) 165.38 lb (75.00 kg) Allergies No Known Medication Allergies What to Do Next Instructions from Your Care Team Continue the Pepcid and pantoprazole.?? Follow-up with surgery week as planned for upper endoscopy.?? Prescription for nystatin essential??yeast esophagitis sent to your pharmacy. ??Prescription for Augmentin to treat potential dental infection sent to your pharmacy.?? Try to make an appointment tofollow-up with a dentist. You Need to Schedule the Following Appointments Follow Up with??surgery When:??Within 2 to 4 days You were treated today on an emergency basis; it may be [place] to contact your primary care provider to notify them of your visit today. You may have been referred to your regular doctor or a specialist, please follow up as instructed. If your condition worsens or you can't get in to see the doctor, contact the Emergency Department. Medications What How Much When Why Instructions Next Dose New amoxicillin-clavulanate (!- Augmentin 875 mg-125 mg oral tablet) 1 tab Oral (given by mouth) Every 12 hours Pharyngitis Esophagitis Pain, dental Duration: 7 Days Pickup at [facility] New nystatin (nystatin 100,000 units/ mL oral suspension) 4 Milliliters Oral (given by mouth) 4 times a day Pharyngitis Esophagitis Pain, dental Pickup at [facility] Unchanged methadone Unchanged predniSONE Pharmacy Information [facility]: [address], [place] [id number] [phone] Education Materials Dental Pain Dental pain is often a sign that something is wrong with your teeth or gums. You can also have painafter a dental treatment. If you have dental pain, it is important to contact your dentist, especially if the cause of the pain is not known. Dental pain may hurt a lot or a little and can be caused by many things, including: ? Tooth decay (cavities or caries). ? Infection. ? The inner part of the tooth being filled with pus (an abscess). ? Injury. ? A crack in the tooth. ? Gums that move back and expose the root of a tooth. ? Gum disease. ? Abnormal grinding or clenching of teeth. ? Not taking good care of your teeth. Sometimes the cause of pain is not known. You may have pain all the time, or it may happen only when you are: ? Chewing. ? Exposed to hot or cold temperatures. ? Eating or drinking foods or drinks that have a lot of sugar in them, such as soda or candy. Follow these instructions at home: Medicines ? Take mlhv-fjo-ddjmdyv and prescription medicines only as told by your dentist. ? If you were prescribed an antibiotic medicine, take it as told by your dentist. Do not stop taking it even if you start to feel better. Eating and drinking Do not eat foods or drinks that cause you pain. These include: ? Very hot or very cold foods or drinks. ? Sweet or sugary foods or drinks. Managing pain and swelling ? If told, put ice on the painful area of your face. To do this: ? Put ice in a plastic bag. ? Place a towel between your skin and the bag. ? Leave the ice on for 20 minutes, 2???3 times a day. ? Take off the ice if your skin turns bright red. This is very important. If you cannot feel pain, heat, or cold, you have a greater risk of damage to the area. Brushing your teeth ? Gaffney your teeth twice a day using a fluoride toothpaste. ? Use a toothpaste made for sensitive teeth as told by your dentist. ? Use a soft toothbrush. General instructions ? Floss your teeth at least once a day. ? Do not put heat on the outside of your face. ? Rinse your mouth often with salt water. To make salt water, dissolve ?1 tsp (3???6 g) of salt in 1 cup (237 mL) of warm water. ? Watch your dental pain. Let your dentist know if there are any changes. ? Keep all follow-up visits. Contact a dentist if: ? You have dental pain and you do not know why. ? Medicine does not help your pain. ? Your symptoms get worse. ? You have new symptoms. Get help right away if: ? You cannot open your mouth. ? You are having trouble breathing or swallowing. ? You have a fever. ? Your face, neck, or jaw is swollen. These symptoms may be an emergency. Get help right away. Call your local emergency services (911 int [place] ? Do not wait to see if the symptoms will go away. ? Do not drive yourself to the hospital. Summary ? Dental pain may be caused by many things, including tooth decay, injury, or infection. In some cases, the cause is not known. ? Dental pain may hurt a lot or very little. You may have pain all the time, or you may have it only when you eat or drink. ? Take vzfx-etj-uetoixa and prescription medicines only as told by your dentist. ? Watch your dental pain for any changes. Let your dentist know if symptoms get worse. This information is not intended to replace advice given to you by your health care provider. Make sure you discuss any questions you have with your health care provider. Document Revised: 03/06/2021 Document Reviewed: 03/06/2021 [employer] Patient Education ?? 2021 [employer] Esophagitis Esophagitis is inflammation of the esophagus. The esophagus is the tube that carries food from the mouth to the stomach. Esophagitis can cause soreness or pain in the esophagus. This condition can make it difficult and painful to swallow. What are the causes? Most causes of esophagitis are not serious. Common causes of this condition include: ? Gastroesophageal reflux disease (GERD). This is when stomach contents move back up into the esophagus (reflux). ? Repeated vomiting. ? An allergic reaction, especially caused by food allergies (eosinophilic esophagitis). ? Injury to the esophagus by swallowing large pills with or without water, or swallowing certain types of medicines. ? Swallowing harmful chemicals, such as household cleaning products. ? Drinking a lot of alcohol. ? An infection of the esophagus. This most often occurs in people who have a weakened immune system. ? Radiation or chemotherapy treatment for cancer. ? Certain diseases such as sarcoidosis, Crohn's disease, and scleroderma. What are the signs or symptoms? Symptoms of this condition include: ? Difficult or painful swallowing. ? Pain with swallowing acidic liquids, such as citrus juices. You may also have pain when you burp. ? Chest pain and difficulty breathing. ? Nausea and vomiting. ? Pain in the abdomen. ? Weight loss. ? Ulcers in the mouth and white patches in the mouth (candidiasis). ? Fever. ? Coughing up blood or vomiting blood. ? Stool that is black, tarry, or bright red. How is this diagnosed? This condition may be diagnosed based on your medical history and a physical exam. You may also have other tests, including: ? A test to examine your esophagus and stomach with a small flexible tube with a camera (endoscopy). ? A test that measures the acidity level in your esophagus. ? A test that measures how much pressure is on your esophagus. ? A barium swallow or modified barium swallow to show the shape, size, and functioning of your esophagus. ? Allergy tests. How is this treated? Treatment for this condition depends on the cause of your esophagitis. In some cases, steroids or other medicines may be given to help relieve your symptoms or to treat the underlying cause of your condition. You may have to make some lifestyle changes, such as: ? Avoiding alcohol. ? Quitting any products that contain nicotine or tobacco. These products include cigarettes, chewing tobacco, and vaping devices, such as e-cigarettes. If you need help quitting, ask your health care provider. ? Changing your diet. ? Exercising. ? Changing your sleep habits and your sleep environment. Follow these instructions at home: Medicines ? Take moqu-pjk-wkfpcbz and prescription medicines only as told by your health care provider. ? Do not take aspirin, ibuprofen, or other NSAIDs unless your health care provider told you to do so. ? If you have trouble taking pills: ? Use a pill splitter to decrease the size of the pill. This will decrease the chance of the pill getting stuck or injuring your esophagus. ? Drink water after you take a pill. Eating and drinking ? Avoid foods and drinks that seem to make your symptoms worse. ? Follow a diet as recommended by your health care provider. This may involve avoiding foods and drinks such as: ? Coffee and tea, with or without caffeine. ? Drinks that contain alcohol. ? Energy drinks and sports drinks. ? Carbonated drinks or sodas. ? Chocolate and cocoa. ? Peppermint and mint flavorings. ? Garlic and onions. ? Horseradish. ? Spicy and acidic foods, including peppers, chili powder, joseph powder, vinegar, hot sauces, and barbecue sauce. ? [place] fruit juices and citrus fruits, such as oranges, en, and limes. ? Tomato-based foods, such as red sauce, chili, salsa, and pizza with red sauce. ? Fried and fatty foods, such as donuts, lebanese fries, potato chips, and high-fat dressings. ? High-fat meats, such as hot dogs and fatty cuts of red and white meats, such as rib eye steak, sausage, ham, and freed. ? High-fat dairy items, such as whole milk, butter, and cream cheese. Lifestyle ? Eat small, frequent meals instead of large meals. ? Avoid drinking large amounts of liquid with your meals. ? Avoid eating meals during the 2???3 hours before bedtime. ? Avoid lying down right after you eat. ? Do not exercise right after you eat. ? Do not use any products that contain nicotine or tobacco. These products include cigarettes, chewing tobacco, and vaping devices, such as e-cigarettes. If you need help quitting, ask your health careprovider. General instructions ? Pay attention to any changes in your symptoms. Let your health care provider know about them. ? Wear loose-fitting clothing. Do not wear anything tight around your waist that causes pressure on your abdomen. ? Raise (elevate) the head of your bed about 6 inches (15 cm). You may need to use a wedge to do this. ? Try relaxation strategies such as yoga, deep breathing, or meditation to manage stress. If you needhelp reducing stress, ask your health care provider. ? If you are overweight, reduce your weight to an amount that is healthy for you. Ask your health care provider for guidance about a safe weight loss goal. ? Keep all follow-up visits. This is important. Contact a health care provider if: ? You have new symptoms. ? You have unexplained weight loss. ? You have difficulty swallowing, or it hurts to swallow. ? You have wheezing or a cough that does not go away. ? Your symptoms do not improve with treatment. ? You have frequent heartburn for more than two weeks. Get help right away if: ? You have sudden severe pain in your arms, neck, jaw, teeth, or back. ? You suddenly feel sweaty, dizzy, or light-headed. ? You have chest pain or shortness of breath. ? You vomit and the vomit is green, yellow, or black, or it looks like blood or coffee grounds. ? Your stool is red, bloody, or black. ? You have a fever. ? You cannot swallow, drink, or eat. These symptoms may represent a serious problem that is an emergency. Do not wait to see if the symptoms will go away. Get medical help right away. Call your local emergency services (911 in the [place] Do not drive yourself to the hospital. Summary ? Esophagitis is inflammation of the esophagus. ? Most causes of esophagitis are not serious. ? Follow your health care provider's instructions about eating and drinking. ? Contact a health care provider if you have new symptoms, have weight loss, or coughing that does not stop. ? Get help right away if you have severe pain in the arms, neck, jaw, teeth, or back, or if you have chest pain, shortness of breath, or fever. This information is not intended to replace advice given to you by your health care provider. Make sure you discuss any questions you have with your health care provider. Document Revised: 12/10/2020 Document Reviewed: 12/10/2020 [employer] Patient Education ?? 2021 [employer] Sore Throat A sore throat is pain, burning, irritation, or scratchiness in the throat. When you have a sore throat, you may feel pain or tenderness in your throat when you swallow or talk. Many things can cause a sore throat, including: ? An infection. ? Seasonal allergies. ? Dryness in the air. ? Irritants, such as smoke or pollution. ? Radiation treatment for cancer. ? Gastroesophageal reflux disease (GERD). ? A tumor. A sore throat is often the first sign of another sickness. It may happen with other symptoms, such as coughing, sneezing, fever, and swollen neck glands. Most sore throats go away without medical treatment. Follow these instructions at home: Medicines ? Take swex-qyb-bmcduut and prescription medicines only as told by your health care provider. ? Children often get sore throats. Do not give your child aspirin because of the association with Get's syndrome. ? Use throat sprays to soothe your throat as told by your health care provider. Managing pain To help with pain, try: ? Sipping warm liquids, such as broth, herbal tea, or warm water. ? Eating or drinking cold or frozen liquids, such as frozen ice pops. ? Gargling with a mixture of salt and water 3???4 times a day or as needed. To make salt water, completely dissolve ?1 tsp (3???6 g) of salt in 1 cup (237 mL) of warm water. ? Sucking on hard candy or throat lozenges. ? Putting a cool-mist humidifier in your bedroom at night to moisten the air. ? Sitting in the bathroom with the door closed for 5???10 minutes while you run hot water in the shower. General instructions ? Do not use any products that contain nicotine or tobacco. These products include cigarettes, chewing tobacco, and vaping devices, such as e-cigarettes. If you need help quitting, ask your health careprovider. ? Rest as needed. ? Drink enough fluid to keep your urine pale yellow. ? Wash your hands often with soap and water for at least 20 seconds. If soap and water are not available, use hand organic chemistry professor. Contact a health care provider if: ? You have a fever for more than 2???3 days. ? You have symptoms that last for more than 2???3 days. ? Your throat does not get better within 7 days. ? You have a fever and your symptoms suddenly get worse. Get help right away if: ? You have difficulty breathing. ? You cannot swallow fluids, soft foods, or your saliva. ? You have increased swelling in your throat or neck. ? You have persistent nausea and vomiting. These symptoms may represent a serious problem that is an emergency. Do not wait to see if the symptoms will go away. Get medical help right away. Call your local emergency services (911 in the [place] Do not drive yourself to the hospital. Summary ? A sore throat is pain, burning, irritation, or scratchiness in the throat. Many things can cause a sore throat. ? Take rtml-mvg-uxjnbyc medicines only as told by your health care provider. ? Rest as needed. ? Drink enough fluid to keep your urine pale yellow. ? Contact a health care provider if your throat does not get better within 7 days. This information is not intended to replace advice given to you by your health care provider. Make sure you discuss any questions you have with your health care provider. Document Revised: 08/28/2021 Document Reviewed: 08/28/2021 [employer] Patient Education ?? 2021 [employer] Tests Performed Medications and Immunizations Administered Given 0.9% NaCl bolus, 1000 mL, IV Bolus SUMAtriptan 6 mg/0.5 mL subcutaneous solution, 6 mg, Subcutaneous Toradol, 30 mg, IV Bolus Lab Test Name Test Result Date/Time WBC 10.6 x10^3/mcL 05/12/2022 19:37 EST RBC 4.9 x10^6/mcL 05/12/2022 19:37 EST Hgb 14.7 g/dL 05/12/2022 19:37 EST Hct 44.0 % 05/12/2022 19:37 EST MCV 90.3 05/12/2022 19:37 EST MCH 30.2 pg 05/12/2022 19:37 EST MCHC 33.4 g/dL 05/12/2022 19:37 EST RDW-CV 12.5 % 05/12/2022 19:37 EST Platelets 215 x10^3/mcL 05/12/2022 19:37 EST Neutro Auto 58.6 % 05/12/2022 19:37 EST Lymph Auto 33.6 % 05/12/2022 19:37 EST Dupage Auto 5.0 % 05/12/2022 19:37 EST Eos, Auto 2.0 % 05/12/2022 19:37 EST Basophil Auto 0.6 % 05/12/2022 19:37 EST Imm Gran Auto 0.2 % 05/12/2022 19:37 EST Neutro Absolute 6.2 x10^3/mcL 05/12/2022 19:37 EST Sodium Level 137 mmol/L 05/12/2022 19:37 EST Potassium Level 3.7 mmol/L 05/12/2022 19:37 EST Chloride Level 100 mmol/L 05/12/2022 19:37 EST CO2 28 mmol/L 05/12/2022 19:37 EST Alk Phos 69 unit/L 05/12/2022 19:37 EST AST 13 unit/L 05/12/2022 19:37 EST ALT 16 unit/L 05/12/2022 19:37 EST BUN 25 mg/dL 05/12/2022 19:37 EST Glucose Level 109 mg/dL 05/12/2022 19:37 EST Creatinine Level 1.08 mg/dL 05/12/2022 19:37 EST eGFR AA 82 05/12/2022 19:37 EST eGFR Non-AA 82 05/12/2022 19:37 EST Calcium Level 9.3 mg/dL 05/12/2022 19:37 EST Protein Total 8.2 g/dL 05/12/2022 19:37 EST Albumin Level 4.6 g/dL 05/12/2022 19:37 EST Bilirubin Total 0.8 mg/dL 05/12/2022 19:37 EST Lipase Level 21 unit/L 05/12/2022 19:37 EST CRP High Sens 4.41 mg/L 05/12/2022 19:37 EST Troponin-I 9.6 pg/mL 05/12/2022 19:37 EST Procalcitonin <0.15 ng/mL 05/12/2022 19:37 EST Strep A -IDNOW Not Detected 05/12/2022 19:26 EST 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 Unknown 05/12/2022 19:26 EST Hospitalized due to COVID-19? Unknown 05/12/2022 19:26 EST In ICU? Unknown 05/12/2022 19:26 EST Group care resident? Unknown 05/12/2022 19:26 EST status? 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
[2022-09-25 18:00] VITALS: BP 122/87; PULSE 88; RESP 16; TEMP 36.8; O2SAT 99
--- NOTE | 2022-09-25 18:32 | NUR.NOTE ---
Nursing Note: [id number] Per Access Lynette patient said he was leaving and would return tomorrow.
== END 2022-09-25 18:32 | disposition left against medical advice (07) ==
LOC: ER 17:53
DX: Z53.21 Procedure and treatment not carried out due to patient leaving prior to being seen by health care provider (principal)

== ENCOUNTER 2022-10-03 11:42 | Emergency (ER) | payer MEDICARE, MEDICAID, SELFPAY ==
[2022-10-03 11:45] VITALS: BP 129/93; PULSE 78; RESP 18; TEMP 36; O2SAT 95
[2022-10-03 12:54] VITALS: BP 119/86; RESP 16; TEMP 37.1; O2SAT 96
--- NOTE | 2022-10-03 13:35 | NUR.NOTE ---
Nursing Note: PT needs [facility] oral surgery referral DAVI. SUBHA Kiser
--- NOTE | 2022-10-03 13:37 | W.ED.GENAD ---
Discharge Plan Disposition Patient Disposition: Home Condition: Stable Discharge Details Clinical Impression: Acute oral pain Primary Care Provider: HOLLY GUNN ED Provider: Sofia De Paz Home Meds and New Rx's Prescriptions: Continued sucralfate [Carafate] 1 gram tablet 1 g PO QACHS Qty: 90 0RF gabapentin 300 mg PO BID Patient Comments: ran out sumatriptan succinate [Imitrex] 100 mg tablet 100 mg PO DIRECTED pantoprazole [Protonix] 40 mg tablet,delayed release (DR/EC) 40 mg PO BID Qty: 60 0RF methadone 10 mg Tablet 165 mg PO DAILY Discharge Instructions Additional Instructions: I listed another dental resource in the incisors packet information to call And a referral has been placed to [facility] oral surgery, you also have this contact information I also placed you on the care management list for follow-up and call your primary care physician, [facility] only, boost, Ensure, [place] instant breakfast Stay away from meats and any items that require chewing Make sure you stay hydrated Please return earlier should you have new or worsening complaints Referrals: HOLLY GUNN [Primary Care Provider] - 1 day Discharge Data Discharge Date/Time-TO BE ENTERED AT DEPARTURE: 10/03/22 13:48 Medical Decision Making 51-year-old male presents for evaluation of dental pain, status post numerous upper jawline His dentist actually called last week to let us know he would be evaluated in the emergency department is presenting for the first time since his extractions today secondary to persistent pain and difficulty eating denies any fever or chills, he states he completed antibiotics approximately 2 days ago states he is postop follow-up with oral surgery but has not been supplied with a date is concerned regarding his ability to eat and the amount of pain that he is having persistently does report that he still taking his 165 mg of methadone daily has not called his dentist again is specifically asking if I can remove the bony growths on his teeth Case was discussed with his dentist, Nile Dubon and he did place an oral surgery consultation to [facility] for evaluation, this was confirmed with [facility] I also spoke with Holly Gunn, patient's nurse practitioner so that patient and PCP are in the same loop Patient also has been given a referral to an oral surgeon in the area that accepts Medicaid and he is instructed to call I see no evidence of acute infection on my exam today, patient is resting comfortably with stable vitals Unfortunately I do feel as though he does need oral surgery and likely dental evaluation for dentures, this is not something that the ear is able to assist with I also placed a referral to care management to be sure that patient has oral surgery follow-up Unfortunately his follow-up is complicated by the fact that he has Medicaid, however there are numerous steps have been made to ensure that the patient has good outpatient follow-up with oral surgery I see no indication for additional antibiotics at this time He will take Tylenol as needed for pain and continue on his methadone prescription Return precautions reviewed and patient expressed understanding HPI General Date/Time Provider Initiated Documentation: 10/03/22 11:59. HPI Narrative: This 51-year-old male presents with report of dental pain with bony growths post dental extraction. This was 3 weeks ago and he was referred to oral surgery but is yet to follow-up. He presents today secondary to persistent swelling and persistent bony growths. He denies any fever or chills. Related Data Home Medications Medication Instructions Recorded Confirmed methadone 10 mg tablet 165 mg PO DAILY 12/29/19 10/03/22 sucralfate 1 gram tablet (Carafate) 1 g PO QACHS #90 tabs 05/15/22 10/03/22 pantoprazole 40 mg tablet,delayed 40 mg PO BID #60 tabs 05/16/22 10/03/22 release (Protonix) gabapentin 300 mg PO BID 06/26/22 10/03/22 sumatriptan succinate 100 mg 100 mg PO DIRECTED 06/26/22 10/03/22 tablet (Imitrex) Previous Rx's Medication Instructions Recorded sucralfate 1 gram tablet (Carafate) 1 g PO QACHS #90 tabs 05/15/22 pantoprazole 40 mg tablet,delayed 40 mg PO BID #60 tabs 05/16/22 release (Protonix) Allergies Allergy/AdvReac Type Severity Reaction Status Date / Time No Known Allergies Allergy Unverified 09/25/22 18:03 General Stated Complaint: DentalOral KERA: 3 PFSH All Active Problems (Updated 10/03/22 @ 13:40 by IKE Gomez) Dental caries (Acute) Acute oral pain (Acute) Medical History Migraine Surgical History History of back surgery History of knee surgery Social History Smoking/Tobacco Use Status: Current every day Tobacco Type: cigarettes Smoking risk assessment performed?: Yes Alcohol Intake: former Substance use type: former substance user Details: methadone clinic Do you feel safe at home: Yes Do you feel safe in your relationship?: Yes Exam Narrative Exam Narrative: Patient in no acute distress, bony growths noted from upper jawline, slight swelling surrounding tooth, no purulent drainage or significant erythema, no crepitus, no evidence of deep space infection, no trismus, alert, oriented, no respiratory distress presenting cardiac rate and rhythm and within normal limits Course Vital Signs Vital signs: Vital Signs Temperature 36 C L 10/03/22 11:45 Pulse 78 10/03/22 11:45 Respiratory Rate 18 10/03/22 11:45 Blood Pressure 129/93 H 10/03/22 11:45 Pulse Oximetry 95 10/03/22 11:45 Temperature 37.1 C 10/03/22 12:54 Temperature Source Tympanic 10/03/22 12:54 Pulse 78 10/03/22 11:45 Respiratory Rate 16 10/03/22 12:54 Respiratory Effort Normal, Non-Labored 10/03/22 12:54 Respiratory Depth Normal 10/03/22 12:54 Respiratory Pattern Normal 10/03/22 12:54 Blood Pressure 119/86 10/03/22 12:54 Blood Pressure Mean 97 10/03/22 12:54 Blood Pressure Position Sitting 10/03/22 11:45 Pulse Oximetry 96 10/03/22 12:54 Oxygen Delivery Method Room Air 10/03/22 12:54 Oxygen Flow Rate 0 10/03/22 12:54
[2022-10-03 13:45] VITALS: BP 133/78; PULSE 63; RESP 16; TEMP 37; O2SAT 94
== END 2022-10-03 13:48 | disposition home or self-care (01) ==
PROVIDERS: Emergency Provider Physician Assistant; PCP Nurse Practitioner Family
DX: R68.84 Jaw pain (principal)
CPT/HCPCS: 99283

== ENCOUNTER 2022-12-18 22:52 | Emergency (ER) | payer MEDICARE, MEDICAID, SELFPAY ==
[2022-12-18 22:56] VITALS: BP 111/96; PULSE 80; RESP 18; TEMP 37; O2SAT 97
--- NOTE | 2022-12-18 23:00 | DI.CT_ITS ---
Exam(s) CT ABDOMEN PELVIS W EXAM: CT ABDOMEN PELVIS W CLINICAL HISTORY: B lower quadrant abdominal pain. TECHNIQUE: Imaging Protocol: Axial computed tomography images with coronal and sagittal reformatted images were created and reviewed CONTRAST MATERIAL: Intravenous: Omnipaque 350 Contrast volume:100 ml Oral: no COMPARISON: CT CT CHEST PE CTA from 06/16/[address] NECK CHEST W from 05/09/2022 FINDINGS: ABDOMEN: Lung Bases: Mild dependent changes. Liver: Normal density. No measurable mass. Gallbladder and biliary tract: No radiodense calculus or dilation. Pancreas: Normal density, no abnormal calcifications or inflammatory process. Spleen: Normal. Kidneys: Normal size, contour and axis. No radiodense stones or obstructive uropathy. No suspicious m asses seen. Adrenal glands: No masses seen. Abdominal Aorta: Mild atherosclerotic changes. Slight dilatation of the distal abdominal aorta 2.5 c m. Soft tissues: Unremarkable. PELVIS: Bladder: No gross wall thickening. No calculi.No focal mass. Bowel: No obstruction. No bowel wall thickening. Large quantity of stool seen from cecum through l ower descending colon.. Appendix normal. Peritoneal cavity: No ascites, collection or mesenteric inflammatory response. Bones: Fusion hardware at L3-4. Reproductive organs: Prostate slightly enlarged. Lymph nodes: Unremarkable. Impression: Large quantity of stool. No acute abnormality. RADIATION DOSE DELIVERED: 660.56mGy.cm Total DLP DATA REPOSITORY: All CT scans at this facility are submitted to the National Radiology Data Registry (NRDR) Dose Index Registry (DIR) with the [employer] (ACR). RADIATION OPTIMIZATION: All CT scans at this facility use at least one of these dose optimization te chniques: automated exposure control; mA and/or kV adjustment per patient size (includes targeted exa ms where dose is matched to clinical indication); or iterative reconstruction.
--- NOTE | 2022-12-18 23:08 | W.ED.GENAD ---
Discharge Plan Disposition Patient Disposition: Home Discharge Details Clinical Impression: Gastric ulcer Primary Care Provider: Holly Gunn ED Provider: Micheal Mazariegos Home Meds and New Rx's Prescriptions: Continued sucralfate [Carafate] 1 gram tablet 1 g PO QACHS Qty: 90 0RF gabapentin 300 mg PO BID Patient Comments: ran out sumatriptan succinate [Imitrex] 100 mg tablet 100 mg PO DIRECTED pantoprazole [Protonix] 40 mg tablet,delayed release (DR/EC) 40 mg PO BID Qty: 60 0RF methadone 10 mg Tablet 165 mg PO DAILY Discharge Instructions Instructions: Peptic Ulcer (ED), Gastritis (ED) Additional Instructions: We have placed a referral to case management to arrange close follow-up with general surgery as you will most likely need a repeat endoscopy. Should you start to have blood in your vomit or black tarry stool these would be indications to return the emergency department. Smoking is most likely a significant cause of your symptoms and to the extent that she can even reducing the amount that you smoke will be beneficial to you. Referrals: Santa Roberts MD [ [facility] STAFF PHYSICIAN] - Discharge Data Discharge Date/Time-TO BE ENTERED AT DEPARTURE: 12/19/22 01:26 Medical Decision Making Suspect the hemorrhagic gastritis or bleeding ulcer with a gastric or duodenal. Patient describes having melena. Will infuse 80 mg of Protonix IV. Obtain lipase to rule out pancreatitis as well as a hepatic function panel. Obtain CT scan of the abdomen pelvis to rule out a bleeding mass or other cause of the patient's pain and symptoms. If he does not require transfusion his vitals are stable he can be discharged for outpatient management with general surgery for repeat endoscopy. Will reassess after CT abdomen pelvis and labs are back. Differential Diagnosis Differential Diagnosis: Severe gastritis, duodenal ulcer, gastric ulcer bleeding Medical Records Medical records reviewed: Yes I reviewed the patient's medical records. Medical records narrative: Endoscopy from March 2022 demonstrates significant gastritis and esophagitis Lab Data Lab results reviewed: Yes I reviewed the patient's lab results. HPI General Date/Time Provider Initiated Documentation: 12/18/22 22:58. HPI Narrative: Patient with a history of severe gastritis esophagitis with dyne aphasia now presents with 5 days of worsening epigastric and bilateral lower quadrant abdominal pain along with significantly dark in stool. Also with lightheaded dizziness weakness and periods of diaphoresis. States that the pain has gotten steadily worse. P.o. intake has been reduced. Bowel movements have been markedly reduced. Daily smoker and denies alcohol intake currently on methadone. Patient does not take aspirin. No blood thinners. Related Data Home Medications Medication Instructions Recorded Confirmed methadone 10 mg tablet 165 mg PO DAILY 12/29/19 12/18/22 sucralfate 1 gram tablet (Carafate) 1 g PO QACHS #90 tabs 05/15/22 12/18/22 pantoprazole 40 mg tablet,delayed 40 mg PO BID #60 tabs 05/16/22 12/18/22 release (Protonix) gabapentin 300 mg PO BID 06/26/22 12/18/22 sumatriptan succinate 100 mg 100 mg PO DIRECTED 06/26/22 12/18/22 tablet (Imitrex) Previous Rx's Medication Instructions Recorded sucralfate 1 gram tablet (Carafate) 1 g PO QACHS #90 tabs 05/15/22 pantoprazole 40 mg tablet,delayed 40 mg PO BID #60 tabs 05/16/22 release (Protonix) Allergies Allergy/AdvReac Type Severity Reaction Status Date / Time No Known Allergies Allergy Unverified 09/25/22 18:03 General Stated Complaint: Abd Prob KERA: 3 Review of Systems Narrative: CONST: Negative for fever, body aches and chills. HENT: Negative for neck pain/stiffness, headache, congestion, EYES: Negative for discharge/pain or vision changes. RESP: Negative for cough/hemoptysis and shortness of breath. CV: Negative chest pain, difficulty breathing, palpitations. ABD: + pain, nausea, vomiting. : Negative increase frequency, dysuria, blood in urine or stool. MUSC: Negative for muscle aches, edema. SKIN: Negative rash, lesions/sores. NEURO: Negative headache, +dizziness, weakness. PFSH All Active Problems (Updated 12/19/22 @ 01:01 by Micheal Mazariegos MD) Gastric ulcer (Acute) Medical History Migraine Surgical History History of back surgery History of knee surgery Social History Smoking/Tobacco Use Status: Current every day Tobacco Type: cigarettes Smoking risk assessment performed?: Yes Alcohol Intake: former Substance use type: former substance user Details: methadone clinic Housing: house Do you feel safe at home: Yes Do you feel safe in your relationship?: Yes Exam Narrative Exam Narrative: GENERAL APPEARANCE NAD, activity normal for age, well developed/ well nourished, no cyanosis,or diaphoresis. Patient slightly pale EYES slight pallor to conjunctiva. EARS/NOSE/THROAT HEAD/NECK normocephalic atraumatic, no facial trauma, neck is supple. RESPIRATORY respiratory effort normal, speaks in full sentences, no tripod position, no accessory muscle use. CARDIAC Regular rate and rhythm, no edema. ABDOMINAL moderate tenderness in the epigastrium and in the bilateral lower quadrants. No rebound or guarding. MUSCLES/EXTREMITIES No abnormal range of motion, no swelling. SKIN Warm, pink and dry. No rashes, dermatoses, petechiae or lesions. NEUROLOGICAL Speech is clear and appropriate. Normal level of consciousness. Gait and coordination are normal. 5/5 strength in all extremities. PSYCH Normal mood and affect. Judgement/competence is appropriate Course Reevaluation(s) Time: 00:56 Reevaluation: Hemoccult stool test negative. CT scan of the abdomen pelvis reveals gastric antrum thickening but no obvious perforation. Will discharge on high-dose Protonix liquid diet and have arranged for close follow-up with general surgery. Vital Signs Vital signs: Vital Signs Temperature 37.0 C 12/18/22 22:56 Pulse 80 12/18/22 22:56 Respiratory Rate 18 12/18/22 22:56 Blood Pressure 111/96 H 12/18/22 22:56 Pulse Oximetry 97 12/18/22 22:56 Temperature 37.0 C 12/18/22 22:56 Temperature Source Oral 12/18/22 22:56 Pulse 80 12/18/22 22:56 Respiratory Rate 18 12/18/22 22:56 Respiratory Effort Normal, Non-Labored 12/18/22 23:00 Blood Pressure 111/96 H 12/18/22 22:56 Blood Pressure Position Sitting 12/18/22 22:56 Pulse Oximetry 97 12/18/22 22:56 Oxygen Delivery Method Room Air 12/18/22 22:56 Oxygen Flow Rate 0 12/18/22 22:56 Pain Level 7 12/18/22 22:56
[2022-12-18 23:13] LABS: Abs Immature Grans 0.03 10^3/uL (0.0-0.06); Absolute Basophil Count 0.05 10^3/uL (0.0-0.2); Absolute Eosinophil Count 0.19 10^3/uL (0.0-0.7); Absolute Lymphocyte Count 2.69 10^3/uL (1.2-3.4); Absolute Monocyte Count 0.38 10^3/uL (0.1-0.8); Absolute Neutrophil Count 3.61 10^3/uL (1.2-6.7); Basophils % 0.7; Eosinophils % 2.7; HCT 40.6 % (40.0-50.0); HGB 13.6 g/dL (13.5-17.5); Immature Grans % 0.4; Lymphocytes % 38.7; MCH 30.4 pg (27.0-33.0); MCHC 33.5 % (32.0-36.0); MCV 91 fL (80-95); MPV 9.8 fL (8.0-11.0); Monocytes % 5.5; Platelet Count 168 10^3/uL (130-400); RBC 4.48 10^6/uL (4.36-5.78); RDW 12.4 % (11.8-14.1); RDW-SD 40.8 fL; WBC 6.95 10^3/uL (4.4-10.8)
[2022-12-18] MEDS: MORPHine 10 MG/ML VIAL 6 MG IVP (23:22)
[2022-12-18] MEDS: PANTOPRAZOLE 80 MG in Normal Saline 100 ML 10 MG IV (23:23)
[2022-12-18 23:29] LABS: Lipase 20 U/L (16-77)
[2022-12-18 23:32] LABS: ALT 27 U/L (16-63); AST 12 U/L (15-37); Albumin 4.3 g/dL (3.4-5.0); Alkaline Phosphatase 79 U/L (46-116); BUN 13 mg/dL (7-18); Bilirubin, Total 0.5 mg/dL (0.2-1.0); CREATININE 1.1 mg/dL (0.70-1.30); Calcium 8.9 mg/dL (8.5-10.1); Chloride 101 mmol/L (98-107); Estimated GFR 80.27 (mL/min/1.73m2); Glucose 162 mg/dL (74-106); Potassium 3.5 mmol/L (3.5-5.1); Sodium 141 mmol/L (136-145); Total Protein 7.8 g/dL (6.4-8.2)
[2022-12-18] MEDS: Omnipaque 350 MG/ML 100 ML BTL IJ (23:58)
[2022-12-18] MEDS: Normal Saline - Diluent 50 ML VIAL IJ (23:59)
--- NOTE | 2022-12-19 00:44 | DI.VRAD_ITS ---
PROCEDURE INFORMATION: Exam: CT Abdomen And Pelvis With Contrast Exam date and time: 12/18/2022 11:59 PM Age: 51 years old Clinical indication: Abdominal pain; Localized; Right lower quadrant (rlq); Prior surgery; Surgery date: 6+ months; Surgery type: Lumbar surgery; Additional info: Rlq pain TECHNIQUE: Imaging protocol: Computed tomography of the abdomen and pelvis with contrast. Radiation optimization: All CT scans at this facility use at least one of these dose optimization techniques: automated exposure control; mA and/or kV adjustment per patient size (includes targeted exams where dose is matched to clinical indication); or iterative reconstruction. Contrast material: OMNI 350; Contrast volume: 100 ml; Contrast route: INTRAVENOUS (IV); COMPARISON: CT NECK CHEST W 05/09/2022 9:59 PM FINDINGS: Lungs: Lung bases with moderate bronchiectasis consistent with COPD. Bilateral posteroinferior atelectatic features. Pleural spaces: No pleural effusion. Heart: Normal heart size. No pericardial effusion. No coronary artery atherosclerotic calcium. Liver: Diffuse mild fatty liver change. Gallbladder and bile ducts: The gallbladder is normal in size and shape. No stones or inflammatory changes. Pancreas: Moderate to severe pancreatic atrophy. No acute changes. Spleen: The spleen is normal in size, contour and attenuation. Adrenal glands: The adrenal glands are normal in size and contour bilaterally. Kidneys and ureters: The kidneys bilaterally are unremarkable. Normal attenutation. No hydronephrosis. No calculi. Stomach and bowel: Gastric contour is unremarkable. No gastric outlet obstruction. There is mild edema in the region of the gastric antrum and pylorus which could represent a distal gastritis. See series 5, images 154 through 201. Differential diagnosis would include peptic ulcer disease. There is no perigastric fluid or air. Duodenal sweep without edema. No small bowel obstruction. Large bowel is unremarkable. Formed feces. No edema. Appendix: A non inflamed appendix is identified. Series 5, images 544 through 643. Intraperitoneal space: Scant free fluid in the pelvic cul-de-sac region with simple appearance. Nonspecific in nature. Vasculature: Minor aneurysmal dilatation of the distal abdominal aorta at 2.4 x 2.5 cm. No acute change. Iliac arteries without aneurysmal dilatation. Lymph nodes: Unremarkable. No enlarged lymph nodes. Urinary bladder: Urinary bladder is unremarkable in appearance. No wall thickening. No intravesicular calculi. No intravesicular gas. Reproductive: Unremarkable as visualized. Bones/joints: Degenerative lumbar spine disease. Previous fusion L3-L4 posteriorly. No acute skeletal changes. Small sliding hiatal hernia without acute features. Soft tissues: Unremarkable. IMPRESSION: 1. Mild wall thickening or edema in the region of the gastric antrum and pylorus. Can not exclude a distal gastritis. Differential diagnosis would include peptic ulcer disease. Maximal wall thickness 9 mm. No perforation evident. 2. A non inflamed appendix is identified. 3. No acute urinary tract pathology. 4. No acute biliary disease. 5. No bowel obstruction Dictated and Authenticated by: Paul Lindsey MD. Ordering:TEVIN Burton MD
[2022-12-19 00:56] VITALS: BP 113/71; PULSE 69; RESP 20; O2SAT 94
--- NOTE | 2022-12-19 00:58 | NUR.NOTE ---
Referral faxed to [facility] to f/u araceli 12/19/22 if at all possible. Likely and Ulcer.Nursing Note:
[2022-12-19] MEDS: MORPHine 10 MG/ML VIAL 6 MG IVP (01:05)
[2022-12-19 01:24] VITALS: PULSE 61; O2SAT 96
== END 2022-12-19 01:26 | disposition home or self-care (01) ==
PROVIDERS: Emergency Provider Emergency Medicine; PCP Nurse Practitioner Family
DX: K25.9 Gastric ulcer, unspecified as acute or chronic, without hemorrhage or perforation (principal); F17.210 Nicotine dependence, cigarettes, uncomplicated
CPT/HCPCS: 80053; 83690; 86850; 86900; 86901; 96365; 96366; 96375; 96376; 99285; 74177; 83735; 85025; 99284; J2270; J3490

== ENCOUNTER 2022-12-27 05:39 | Emergency (ER) | payer MEDICARE, MEDICAID, SELFPAY ==
[2022-12-27] VITALS (84 sets, daily range): BP systolic 85–152; BP diastolic 45–90; PULSE 42–98; RESP 12–30; TEMP 37.2; O2SAT 98
--- NOTE | 2022-12-27 05:45 | RT.EKG_ITS ---
APPROVED REPORT Exam: Resting ECG Reason for Exam: chest pain Patient Location: E HR:86 bpm ECG Measurements Heart Rate 86 AXIS MD 130 P 65 QRSd 85 QRS 37 QT 391 T 40 QTc 467 Conclusion Sinus rhythm...normal P axis, V-rate 60- [address] depression V3-6 new vs 05/06
--- NOTE | 2022-12-27 06:15 | DI.RAD_ITS ---
Exam(s) XR CHEST 2V PA LATERAL EXAM: XR CHEST 2V PA LATERAL CLINICAL HISTORY: CP. TECHNIQUE: 2D digital imaging was performed. COMPARISON: CR,XR XR CHEST 2V PA LATERAL from 05/09/2022 FINDINGS: 2 views: Heart size is normal. The mediastinum is not widened. Lungs are clear. No infiltrates nor pleural effusions. IMPRESSION: No acute pulmonary findings. DATA REPOSITORY: RADIATION DOSE DELIVERED:
--- NOTE | 2022-12-27 06:15 | DI.CT_ITS ---
Exam(s) CT HEAD WO/W EXAM: CT HEAD WO/W CLINICAL HISTORY: LAMBERT, AMS, hallucinations, paranoid. TECHNIQUE: Imaging Protocol: Both noninfused and contrast infused CT scans of the brain were perform ed. IV Contrast Dose =75 cc Axial computed tomography images with coronal and sagittal reformatted images were created and review ed COMPARISON: No exams were available for comparison FINDINGS: There are no skull fractures nor fluid in the visualized paranasal sinuses. There is no evidence of intracranial hemorrhage, mass effect, or shift of midline structures. There are no extra-axial fluid collections. The ventricles are not enlarged or shifted and there is no blo od within the ventricular system nor within the basal cisterns. There are no ring enhancing lesions in the brain and there is no abnormal meningeal enhancement, foca l or diffuse. No evidence of venous sinus thrombosis. IMPRESSION: No significant intracranial findings. No significant enhancing intracranial findings. RADIATION DOSE DELIVERED: 1,389.9mGy.cm Total DLP DATA REPOSITORY: All CT scans at this facility are submitted to the National Radiology Data Registry (NRDR) Dose Index Registry (DIR) with the [employer] (ACR). RADIATION OPTIMIZATION: All CT scans at this facility use at least one of these dose optimization te chniques: automated exposure control; mA and/or kV adjustment per patient size (includes targeted exa ms where dose is matched to clinical indication); or iterative reconstruction.
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
[2022-12-27 06:36] LABS: Abs Immature Grans 0.04 10^3/uL (0.0-0.06); Absolute Eosinophil Count 0.03 10^3/uL (0.0-0.7); Absolute Lymphocyte Count 2.12 10^3/uL (1.2-3.4); Absolute Monocyte Count 0.77 10^3/uL (0.1-0.8); Basophils % 0.5; Eosinophils % 0.3; HCT 36.9 % (40.0-50.0); HGB 12.5 g/dL (13.5-17.5); Immature Grans % 0.4; Lymphocytes % 19.3; MCH 29.8 pg (27.0-33.0); MCHC 33.9 % (32.0-36.0); MCV 88 fL (80-95); MPV 9.7 fL (8.0-11.0); Neutrophils % 72.5; Platelet Count 250 10^3/uL (130-400); RDW 12.6 % (11.8-14.1); RDW-SD 40.7 fL; WBC 10.96 10^3/uL (4.4-10.8)
[2022-12-27 06:38] LABS: Absolute Basophil Count 0.05 10^3/uL (0.0-0.2); Absolute Neutrophil Count 7.95 10^3/uL (1.2-6.7)
[2022-12-27] MEDS: Pantoprazole 40 MG VIAL IVP (06:50)
[2022-12-27 06:56] LABS: Ammonia 13 umol/L (11-32)
[2022-12-27 06:58] LABS: ALT 44 U/L (16-63); AST 179 U/L (15-37); Albumin 4.2 g/dL (3.4-5.0); Alkaline Phosphatase 72 U/L (46-116); Anion Gap 11.6 mmol/L (3-11); BUN 14 mg/dL (7-18); Bilirubin, Total 0.5 mg/dL (0.2-1.0); CO2 24.4 mmol/L (21.0-32.0); CREATININE 1.2 mg/dL (0.70-1.30); Calcium 9.1 mg/dL (8.5-10.1); Chloride 99 mmol/L (98-107); ETHANOL BLOOD < 3.0 mg/dL (<10); Estimated GFR 71.86 (mL/min/1.73m2); Glucose 122 mg/dL (74-106); Lipase 18 U/L (16-77); Magnesium 1.8 mg/dL (1.8-2.4); Sodium 135 mmol/L (136-145); Total Protein 7.8 g/dL (6.4-8.2)
[2022-12-27 06:59] LABS: Salicylate 6.9 mg/dL (<2.8)
[2022-12-27 07:00] LABS: Acetaminophen < 2 ug/mL (10-30); Potassium 2.9 mmol/L (3.5-5.1); Troponin I 112 ng/L (<or=60)
[2022-12-27] MEDS: Omnipaque 350 MG/ML 100 ML BTL IJ (07:03)
[2022-12-27] MEDS: Normal Saline - Diluent 50 ML VIAL IJ (07:04)
[2022-12-27] MEDS: Potassium Chloride 20 MEQ TABCR 40 MEQ PO (07:16)
[2022-12-27] MEDS: LORazepam 2 MG/ML VIAL IVP (07:37)
--- NOTE | 2022-12-27 07:45 | RT.EKG_ITS ---
APPROVED REPORT Exam: Resting ECG Reason for Exam: Patient Location: E HR:76 bpm ECG Measurements Heart Rate 76 AXIS AZ 135 P 64 QRSd 83 QRS 43 QT 423 T 44 QTc 475 Conclusion Sinus rhythm...normal P axis, V-rate 60- 99 little change vs prior
[2022-12-27 07:54] LABS: Bilirubin Negative (Negative); Blood Moderate (Negative); Clarity Clear (Clear); Glucose Negative (Negative); Ketones Negative (Negative); Leukocyte Esterase Negative (Negative); Nitrite Negative (Negative); Specific Gravity <= 1.005 (1.005-1.025); Urobilinogen 0.2 mg/dL (Up to 0.2); pH 5.5 (5-8)
--- NOTE | 2022-12-27 07:58 | NUR.NOTE ---
Addendum entered by Shaista Mattson RN 12/27/22 13:14: [facility] staff asked for and son to come in during discussion. states she will be here in about an hour, sons phone is not on and has a full mailbox. Original Note: Nursing Note: Family numbers: Olimpia (): Kavin (son):
[2022-12-27 08:04] LABS: Bacteria Negative HPF (Negative); C & S Indicated? No; Casts Negative LPF (Negative); Crystals Negative HPF (Negative); Epithelial Cells Few HPF (Negative); Mucus Negative (Negative); RBC 0-2 HPF (0-2); WBC 0-2 HPF (0-5)
[2022-12-27 08:12] LABS: *AMPHETAMINES SCREEN URINE Negative (Negative); *BARBITURATES SCREEN URINE Negative (Negative); *BENZODIAZEPINES SCREEN URINE Negative (Negative); Cannabinoids THC Negative (Negative); Cocaine Screen,Urine Negative (Negative); METHADONE URINE SCREEN Positive (Negative); OPIATES URINE SCREEN Negative (Negative)
[2022-12-27 08:14] LABS: Tricyclic Antidepressants Negative (Negative)
--- NOTE | 2022-12-27 08:36 | DI.VRAD_ITS ---
PROCEDURE INFORMATION: Exam: XR Chest Exam date and time: 12/27/2022 7:13 AM Age: 52 years old Clinical indication: Pain; Chest pressure TECHNIQUE: Imaging protocol: Radiologic exam of the chest. Views: 2 views. COMPARISON: CT NECK CHEST W 05/09/2022 9:59 PM FINDINGS: Lungs: Unremarkable. No consolidation. Pleural spaces: Unremarkable. No pleural effusion. No pneumothorax. Heart/Mediastinum: Unremarkable. No cardiomegaly. Bones/joints: Unchanged bones. Gastrointestinal tract: Prominent colonic gas in the left upper quadrant. IMPRESSION: No acute findings. Dictated and Authenticated by: Farhad Ivory MD. Ordering:LASHAUN Brown MD
--- NOTE | 2022-12-27 08:43 | DI.VRAD_ITS ---
PROCEDURE INFORMATION: Exam: CT Head Without And With Contrast Exam date and time: 12/27/2022 7:03 AM Age: 52 years old Clinical indication: Altered mental status/memory loss; Confusion or disorientation; Patient HX: LAMBERT, AMS, hallucinations, paranoid TECHNIQUE: Imaging protocol: Computed tomography of the head without and with contrast. Radiation optimization: All CT scans at this facility use at least one of these dose optimization techniques: automated exposure control; mA and/or kV adjustment per patient size (includes targeted exams where dose is matched to clinical indication); or iterative reconstruction. Contrast material: [id number]; Contrast volume: 100 ml; Contrast route: INTRAVENOUS (IV); COMPARISON: CT NECK CHEST W 05/09/2022 9:59 PM FINDINGS: Brain: See Vasculature finding. No acute large territorial infarct. No intracranial extra-axial collection. No acute intracranial hemorrhage. No midline shift. Intracranial atherosclerotic calcifications. Cerebral ventricles: No ventriculomegaly. Paranasal sinuses: Visualized sinuses are unremarkable. No fluid levels. Mastoid air cells: Visualized mastoid air cells are well aerated. Bones/joints: Narrowing of the atlanto odontoid joint. Soft tissues: Unremarkable. Vasculature: Developmental venous anomaly of the left cerebellar hemisphere. IMPRESSION: No acute intracranial abnormality. Dictated and Authenticated by: Farhad Ivory MD. Ordering:LASHAUN Brown MD
[2022-12-27 09:47] LABS: Troponin I 129 ng/L (<or=60)
[2022-12-27] MEDS: Lactated Ringers 1,000 ML 2000 ML IV (10:09)
--- NOTE | 2022-12-27 12:25 | PDOC.MHCN ---
Date of service: 12/27/22 Time of Service: 12:26 PHQ-9 Over the last 2 weeks, how often have you been bothered by any of the following problems? 1. Little interest or pleasure in doing things: more than half the days 2. Feeling down, depressed, or hopeless: several days 3. Trouble falling or staying asleep, or sleeping too much: several days 4. Feeling tired or having little energy: not at all 5. Poor appetite or overeating: several days 6. Feeling bad about yourself - or that you are a failure or have let yourself and your family down: not at all 7. Trouble concentrating on things, such as reading the newspaper or watching television: several days 8. Moving or speaking so slowly that other people could have noticed? - Or the opposite - being so fidgety or restless that you have been moving around a lot more than usual: not at all 9. Thoughts that you would be better off or of hurting yourself in some way: not at all Total score: 6 Source: Developed by Drs. Silver Banerjee, Judith Clark, Tushar Silvestre and colleagues, with an educational samreen from [employer]. Suicide Severity Rate CSSRS Have you wished you were or wished you could go to sleep and not wake up?: No Have you actually had any thoughts of killing yourself?: No CSSRS2 Have you been thinking about how you might do this?: No Have you had these thoughts and had some intention of acting on them?: No Have you started to work out or worked out the details of how to kill yourself? Do you intend to carry out this plan?: No CSSRS3 Have you ever done anything, started to do anything or prepared to do anything to end your life?: No Screening Score Total Score: 0 Screening: Negative Mental Health Emergency Note Release [facility] release signed:: Yes Reason for Visit has had hallucinations, lack of sleep, wanders for hours and does not where he went In the last 2 weeks has the pt presented for ES prior to today?: No Non Suicidal Self Injury Current: No History: No Safety Risk/Harm to Self or Others Current Ideation to Harm Self or Others: No Risk: Does risk to harm exist?: yes. Risk: Moderate Risk Duty to warn indicated: No Asssessment/Mental Status Appearance: Disheveled Attitude: Guarded Behavior: Agitated and Other Speech: Soft, Slow, Incoherent and Hesitant Affect: Cogruent with mood Mood: Irritable, Angry and Other Thought process: Poverty of content Hallucinations: yes, Visual and Other Delusions: yes, Persectory/Paranoid and Bizarre Attention: Inattention Perception: Derealization Orientation: Disoriented in Situation Memory: Impaired in: Recent Insight: Poor Judgement: Poor Neurovegetative Symptoms Sleep: Decrease Appetitie: Decrease Interests: Decrease Energy: No change Libido: Not applicable Substance Use: Other Drug Issues: Other Do you use nicotine?: Yes Have you used substances in the last 7 days?: No Additional Issues: Assaultive/Threatening Behavior: No Medical Concerns: No Client engaged in active self harm w/weapon: No Threatening to run away: Yes Child reported abuse/neglect: No Voluntarily presenting for services: Yes Domestic violence is a concern: No Impression This client is obviously suffering from hallucinations and some delusional thoughts. He admitted to taking mehtadone from the clinic daily but is suspicious of possibly using other substances. Resources Reosurces reviewed and given:: Other Plan/Disposition Recommended Disposition: Hospitalization No. Plan: This client attempted run after we took a break from conducting the assessment as he felt his was being murdered in the hospital parking lot. He was still Facilities contacted if Applicable [facility] Not accepted, No bed available and Other [facility] Not accepted, No bed available and Other [facility] Not accepted, [facility], [facility] and Other Reports/communication Outcome discussed with: ED/Personnel
[2022-12-27 12:52] LABS: Troponin I 108 ng/L (<or=60)
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
[2022-12-27] MEDS: OLANZapine 10 MG TAB PO (14:11)
--- NOTE | 2022-12-27 14:50 | NUR.NOTE ---
Nursing Note: Pt currently resting comfortably. Pt denies needs. Mental health to evaluate. aware.
--- NOTE | 2022-12-27 16:42 | NUR.NOTE ---
Nursing Note: pt assigned to room 9; keno writer / runner assumed care of patient at this time
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
--- NOTE | 2022-12-27 22:05 | NUR.NOTE ---
Nursing Note: Report to Lisa RN at [phone]; this ends my care of this patient.
[2022-12-28] VITALS (33 sets, daily range): BP systolic 91–114; BP diastolic 56–75; PULSE 39–62; RESP 16; TEMP 36.3; O2SAT 92–99
--- NOTE | 2022-12-28 00:03 | NUR.NOTE ---
Nursing Note: Assumed care @ [id number]
[2022-12-28] MEDS: LORazepam 1 MG TAB 2 MG PO ×3 (02:48→17:50)
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
[2022-12-28] MEDS: OLANZapine 10 MG TAB PO (03:21)
[2022-12-28] MEDS: diphenhydrAMINE 50 MG/ML VIAL (03:40)
[2022-12-28] MEDS: Haloperidol 5 MG/ML VIAL (03:40)
--- NOTE | 2022-12-28 04:30 | RT.EKG_ITS ---
APPROVED REPORT Exam: Resting ECG Reason for Exam: sedation, recent CP Patient Location: E HR:48 bpm ECG Measurements Heart Rate 48 AXIS PA 151 P 58 QRSd 78 QRS 50 QT 547 T 46 QTc 488 Conclusion Sinus bradycardia...rate< 60
--- NOTE | 2022-12-28 08:42 | PDOC.MHCN_ITS ---
Date of service: 12/27/22 Time of Service: 17:00 Mental Health Emergency Note Release [facility] release signed:: No Reason for Visit Kavin initially came into the ER for stomach and chest pain, but Kavin is experiencing extreme paranoia. In the last 2 weeks has the pt presented for ES prior to today?: Yes, presented at [facility] ED Client Information Client is: New Well Housed: Yes Non Suicidal Self Injury Current: No History: No Safety Risk/Harm to Self or Others Current Ideation to Harm Self or Others: Yes to self. (This creative services writer cannot fully determine Kavin's thoughts of SI or HI due to his unclear thought process. Kavin told this creative services writer these thoughts come and go but would not clarify.) Intent: no, has no intent. Plan: no.does not have a plan. History of suicide attempt: No history of suicide attempt reported Risk: Does risk to harm exist?: yes. Risk: Moderate Risk Duty to warn indicated: No Asssessment/Mental Status Appearance: Disheveled Attitude: Passive Behavior: Agitated and Gait disturbances Speech: Slow and Hesitant Affect: Flat Mood: Irritable (tired) and Other (Tired) Thought process: Poverty of content Hallucinations: yes, Visual Delusions: yes, Persectory/Paranoid Attention: Inattention and Poor concentration Perception: Not impaired Orientation: Fully orientated Memory: Impaired in: (Kavin does not remember the events that led him to come to the hospital) Recent Insight: Poor Judgement: Poor Neurovegetative Symptoms Sleep: Decrease Appetitie: Decrease Interests: Decrease Energy: Decrease Libido: Not applicable Substance Use: Do you use nicotine?: No Have you used substances in the last 7 days?: No Additional Issues: Assaultive/Threatening Behavior: No Medical Concerns: No Client engaged in active self harm w/weapon: No Threatening to run away: No Child reported abuse/neglect: No Voluntarily presenting for services: No Domestic violence is a concern: No Extreme Psychosis or extreme behavior is present: Yes Impression Please see EE sent to [facility] for more details. Plan/Disposition Recommended Disposition: Hospitalization No. Plan: Kavin will be held involuntarily, referrals will be sent out once [facility] recieves the information from [facility]. Person reported agreement to plan: Yes Reports/communication Outcome discussed with: ED/Personnel
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
[2022-12-28] MEDS: Gabapentin 300 MG CAP PO ×2 (17:11→17:13)
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
[2022-12-28] MEDS: OLANZapine 5 MG TAB PO (17:50)
--- NOTE | 2022-12-28 18:58 | NUR.NOTE ---
Nursing Note: Assumed care of patient @1900. Pt nlaying in bed with CPSO at side.
[2022-12-28] MEDS: Pantoprazole 40 MG TABCR PO (20:00)
[2022-12-28] MEDS: traZODone 100 MG TAB PO (22:00)
[2022-12-28] MEDS: Gabapentin 300 MG CAP 600 MG PO (22:00)
[2022-12-28] MEDS: diphenhydrAMINE 50 MG/ML VIAL IM (23:51)
[2022-12-28] MEDS: Haloperidol 5 MG/ML VIAL IM (23:51)
[2022-12-29] MEDS: LORazepam 1 MG TAB 2 MG PO (00:25)
--- NOTE | 2022-12-29 03:40 | NUR.NOTE ---
Nursing Note: Spoke with Davidson Burnett from the [facility] regarding this patient and his behavior today.
--- NOTE | 2022-12-29 07:40 | NUR.NOTE ---
Nursing Note:MILENA called to confirm methadone dosing. Dose listed in Med Rec is correct- last dosed 12/26/22.
[2022-12-29] MEDS: Methadone Liquid 10 MG/ML 165 MG PO (10:13)
[2022-12-29] MEDS: Pantoprazole 40 MG TABCR PO ×2 (10:14→21:11)
[2022-12-29] MEDS: Sertraline 100 MG TAB PO (10:17)
[2022-12-29 10:40] VITALS: BP 143/87; PULSE 56; RESP 18; TEMP 36.4; O2SAT 96
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
--- NOTE | 2022-12-29 16:02 | PDOC.MHPN2 ---
Date of service: 12/29/22 Time of Service: 16:02 Mental Health Emergency Note Release [facility] release signed:: Yes Reason for Visit The client arrived on 12.27.22 initially for chest and epigastric discomfort per his initial note by Dr. Smith. He was screened by [facility] and then EE'd by [facility] after he presented with a significant thought disorder that has been present for the last 2 years and more so in the last 8 months per his and following the of his father and 14 year old dog. Client remains on EE status and this was certified on 12.28.2022. Assessment was completed face to face. In the last 2 weeks has the pt presented for ES prior to today?: Yes, presented at [facility] ED Client Information Client is: New Non Suicidal Self Injury Current: No History: No Safety Risk/Harm to Self or Others Current Ideation to Harm Self or Others: No Risk: Does risk to harm exist?: yes. Access to means: No. Risk: Moderate Risk Duty to warn indicated: No Asssessment/Mental Status Appearance: Disheveled Attitude: Guarded Behavior: Unremarkable Speech: Soft and Slow Affect: Flat and Cogruent with mood Mood: Elevated and Stressed Thought process: Flight of ideas and Tangential Hallucinations: No Delusions: yes, Persectory/Paranoid and Bizarre Attention: Wandering Perception: Derealization Orientation: Fully orientated Memory: Intact Insight: Poor Judgement: Poor Neurovegetative Symptoms Sleep: No change Appetitie: Increase Additional Issues: Assaultive/Threatening Behavior: No Medical Concerns: No Client engaged in active self harm w/weapon: No Threatening to run away: Yes Child reported abuse/neglect: No Voluntarily presenting for services: No Domestic violence is a concern: No Extreme Psychosis or extreme behavior is present: Yes Impression Client is a 52 year old, , male who is disabled and lives with his in [facility]. He presented to the ED on 12.27.22 with complaints of medical issues and this quickly turned into a MH assessment and consequently an EE. The client presents laying down on one elbow eating ice cream when this television script writer arrives via zoom. Client reports to this television script writer that he is at the hospital because his wanted him to come down because she was concerned that he was hearing voices. The client reports that he is not hearing voices that these people are actually real. Client reports that his appetite and sleep have been good. Client is cooperative during the assessment, however appears to become slightly agitated when stating: I signed myself in here and I can sign myself out. This television script writer informed the client that he is unable to leave due to being at the hospital on involuntary status. Client will remain at [facility] ED pending admission to an inpatient facility. Plan/Disposition Recommended Disposition: Hospitalization facilities contacted. Plan: Client will be re-assessed twice daily until placement is found. Facilities contacted if Applicable [facility] Not accepted, No bed available [facility] Not accepted, No bed available [facility] Not accepted, Only accepting in house referrals, [facility] Not accepted, No bed available Reports/communication Outcome discussed with: ED/Personnel
--- NOTE | 2022-12-29 17:39 | ED.PROG_ITS ---
Date of service: 12/29/22 Time of Service: 22:32 Medical Decision Making This patient was signed out to me. Please see previous notes for H&P and initial eval. In brief, awaiting psych placement for psychosis, EE and 2nd cert done. No acute events on my shift. Remains boarding in the ED awaiting placement. Sign Out Sign Out Data: Sign Out Comment: 52 yo with chest and epigastric pain, hx gastritis and esop hagitis, paranoid and hallucinating. Repeat trop pending, needs psych eval, assess competency Last updated by Stephanie Burton MD at 12/27/22 08:10 Sign Out Comment: 52-year-old gentleman presents to the emergency room with hallucinations and as well as psychotic features. At some point he required Zyprexa 10 mg after he tried to elope from the emergency department trying to save his from a delusional kidnapping. Patient was seen by mental health. Is for certification is done. His second certification will be done within the next 24 hours. Last updated by Davonte Bryan MD at 12/27/22 18:41 Sign Out Comment: Patient presented with belly pain and chest pain. Long history of erosive gastritis. His and son gave the history of hallucinations, paranoia, and overall psychosis. The patient is currently EEG to but with second certification to be done today. Last updated by Stephanie Burton MD at 12/28/22 08:08 Sign Out Comment: This patient was signed out to me. Please see previous documentation for initial eval and prior course. During my shift, 2nd cert completed and home meds ordered. Initially calm and cooperative, at one point did become agitated and was preservating on ATF agents in the building, you need to go check for them. Given a total of 4mg of PO ativan and 5mg PO zyprexa with good effect. Remains in the ED pending psych placement. Will need to clarify methadone dosing tomorrow when clinic is open. Last updated by Felecia Dotson MD at 12/28/22 19:43 Sign Out Comment: 52-year-old with hallucinations, paranoia, and psychosis who is EE'd and awaiting placement. Last updated by Stephanie Burton MD at 12/29/22 07:51 Discharge Plan Discharge Details Chief Complaint: PsychEval Clinical Impression: Gastritis, Psychosis Primary Care Provider: Holly Gunn ED Provider: Felecia Dotson Home Meds and New Rx's Prescriptions: No Action sumatriptan succinate [Imitrex] 100 mg tablet 100 mg PO DIRECTED pantoprazole [Protonix] 40 mg tablet,delayed release (DR/EC) 40 mg PO BID Qty: 60 0RF gabapentin 600 mg tablet sertraline 100 mg tablet 100 mg DAILY trazodone 100 mg tablet 100 mg HS Patient Comments: TAKE 1 TABLET BY MOUTH EVERY NIGHT FOR INSOMNIA FOR 3 NIGHTS THEN INCREASE TO 2 TABLETS NIGHTLY gabapentin 600 mg tablet 600 mg PO HS Patient Comments: TAKE ONE TABLET BY MOUTH EVERY EVENING gabapentin 300 mg capsule 300 mg PO BID Patient Comments: TAKE ONE CAPSULE BY MOUTH TWICE A DAY IN THE MORNING AND AT NOON methadone 10 mg Tablet 165 mg PO DAILY
[2022-12-29] MEDS: Gabapentin 300 MG CAP 600 MG PO (21:11)
[2022-12-29] MEDS: traZODone 50 MG TAB 100 MG PO (21:12)
[2022-12-30] VITALS (87 sets, daily range): BP systolic 91–167; BP diastolic 55–99; PULSE 40–73; RESP 0–25; TEMP 36.9; O2SAT 91–98
--- NOTE | 2022-12-30 03:40 | NUR.NOTE ---
Pt provided decaf coffee and nicotene cartridge as requested. Pt ambulatory to bathroom w steady gate. 1:1 continues for pt/staff safety. NAD noted.
--- NOTE | 2022-12-30 04:00 | RT.EKG_ITS ---
APPROVED REPORT Exam: Resting ECG Reason for Exam: chest pain Patient Location: E HR:44 bpm ECG Measurements Heart Rate 44 AXIS MA 148 P 33 QRSd 84 QRS 58 QT 514 T 52 QTc 440 Conclusion Sinus bradycardia...rate< 60
--- NOTE | 2022-12-30 04:09 | ED.PROG_ITS ---
Date of service: 12/30/22 Time of Service: 04:10 Medical Decision Making 23:00 -- Care was signed out by Dr. Dotson who noted patient is a 2-year-old male presenting with hallucinations, paranoia and psychosis, had been medically cleared and is here waiting involuntary placement . 4:10 -- I performed chart review and noted patient initially presented on 12/27 with chest pain ongoing for a couple weeks. EKG performed on 12/[address] Burton to have new subtle ST depressions V3-6. Patient had elevated troponin on 12/27 of 112 (6:15am), 129 (9:12am), and 108 (12:30p). I am concerned that these elevated troponins with presenting chest pain may represent NSTEMI. I will repeat EKG and check trop. 4:16 --EKG was reviewed and interpreted by me: Sinus bradycardia 44 bpm, no STEMI, I do not appreciate ST depression, no significant change from prior on 12/28. Patient assessed and no chest pain at this time. Sleeping comfortably. Will give asa 81mg. 5:13 -- repeat trop now neg. I called [facility] transfer center to request transfer. ECGs sent for review. 5:55 -- I spoke with veterinary surgeon cardiology at [facility] [place] - Dr. Lira, STD presentation and course. He recommends obtaining echocardiogram today. He would expect echocardiogram to show changes consistent with completed infarct if there was an [place]. If echocardiogram normal with no persistent chest pain, he suspects type II [place]. Plan to consult cardiology. Patient persistently hypertensive here. Plan to consult medicine. Lab Data Lab results reviewed: Yes I reviewed the patient's lab results. Labs: Laboratory Tests Range/Units 12/27/22 12/27/22 12/27/22 06:15 06:15 06:15 WBC (4.4-10.8) 10^3/uL 10.96 H RBC (4.36-5.78) 10^6/uL 4.20 L Hgb (13.5-17.5) g/dL 12.5 L Hct (40.0-50.0) % 36.9 L MCV (80-95) fL 88 MCH (27.0-33.0) pg 29.8 MCHC (32.0-36.0) % 33.9 RDW (11.8-14.1) % 12.6 Plt Count (130-400) 10^3/uL 250 MPV (8.0-11.0) fL 9.7 Immature Gran % 0.4 Neutrophils % 72.5 Lymphocytes % 19.3 Monocytes % 7.0 Eosinophils % 0.3 Basophils % 0.5 Nucleated RBC % (0.0-0.3) % 0.0 Absolute Neutrophils (1.2-6.7) 10^3/uL 7.95 H Absolute Lymphocytes (1.2-3.4) 10^3/uL 2.12 Absolute Monocytes (0.1-0.8) 10^3/uL 0.77 Absolute Eosinophils (0.0-0.7) 10^3/uL 0.03 Absolute Basophils (0.0-0.2) 10^3/uL 0.05 Sodium (136-145) mmol/L 135 L Potassium (3.5-5.1) mmol/L 2.9 L Chloride (98-107) mmol/L 99 Carbon Dioxide (21.0-32.0) mmol/L 24.4 Anion Gap (3-11) mmol/L 11.6 H BUN (7-18) mg/dL 14 Creatinine (0.70-1.30) mg/dL 1.2 Est GFR (CKD-EPI 2020) (mL/min/1.73m2) 71.86 Glucose (74-106) mg/dL 122 H Calcium (8.5-10.1) mg/dL 9.1 Magnesium (1.8-2.4) mg/dL 1.8 Total Bilirubin (0.2-1.0) mg/dL 0.5 AST (15-37) U/L 179 H ALT (16-63) U/L 44 Alkaline Phosphatase (46-116) U/L 72 Ammonia (11-32) umol/L Troponin I (<or=60) ng/L 112 H* Total Protein (6.4-8.2) g/dL 7.8 Albumin (3.4-5.0) g/dL 4.2 Lipase (16-77) U/L 18 Cancelled Urine Color (Yellow) Urine Clarity (Clear) Urine pH (5-8) Ur Specific [place] (1.005-1.025) Urine Protein (Negative) mg/dL Urine Ketones (Negative) mg/dL Urine Blood (Negative) Urine Nitrite (Negative) Urine Bilirubin (Negative) Urine Urobilinogen (Up to 0.2) mg/dL Ur Leukocyte Esterase (Negative) Urine RBC (0-2) HPF Urine WBC (0-5) HPF Ur Epithelial Cells (Negative) HPF Urine Crystals (Negative) HPF Urine Bacteria (Negative) HPF Urine Casts (Negative) LPF Urine Mucus (Negative) Ur Culture Indicated? Urine Glucose (Negative) mg/dL Salicylates (<2.8) mg/dL Urine Opiates Screen (Negative) Urine Methadone Screen (Negative) Acetaminophen (10-30) ug/mL Ur Barbiturates Screen (Negative) Ur Tricyclics Screen (Negative) Ur Amphetamines Screen (Negative) U Benzodiazepines Scrn (Negative) Urine Cocaine Screen (Negative) Ur THC Screen (Negative) Ethyl Alcohol (<10) mg/dL < 3.0 Range/Units 12/27/22 12/27/22 12/27/22 06:15 06:15 06:40 WBC (4.4-10.8) 10^3/uL RBC (4.36-5.78) 10^6/uL Hgb (13.5-17.5) g/dL Hct (40.0-50.0) % MCV (80-95) fL MCH (27.0-33.0) pg MCHC (32.0-36.0) % RDW (11.8-14.1) % Plt Count (130-400) 10^3/uL MPV (8.0-11.0) fL Immature Gran % Neutrophils % Lymphocytes % Monocytes % Eosinophils % Basophils % Nucleated RBC % (0.0-0.3) % Absolute Neutrophils (1.2-6.7) 10^3/uL Absolute Lymphocytes (1.2-3.4) 10^3/uL Absolute Monocytes (0.1-0.8) 10^3/uL Absolute Eosinophils (0.0-0.7) 10^3/uL Absolute Basophils (0.0-0.2) 10^3/uL Sodium (136-145) mmol/L Potassium (3.5-5.1) mmol/L Chloride (98-107) mmol/L Carbon Dioxide (21.0-32.0) mmol/L Anion Gap (3-11) mmol/L BUN (7-18) mg/dL Creatinine (0.70-1.30) mg/dL Est GFR (CKD-EPI 2020) (mL/min/1.73m2) Glucose (74-106) mg/dL Calcium (8.5-10.1) mg/dL Magnesium (1.8-2.4) mg/dL Total Bilirubin (0.2-1.0) mg/dL AST (15-37) U/L ALT (16-63) U/L Alkaline Phosphatase (46-116) U/L Ammonia (11-32) umol/L 13 Troponin I (<or=60) ng/L Total Protein (6.4-8.2) g/dL Albumin (3.4-5.0) g/dL Lipase (16-77) U/L Urine Color (Yellow) Urine Clarity (Clear) Urine pH (5-8) Ur Specific [place] (1.005-1.025) Urine Protein (Negative) mg/dL Urine Ketones (Negative) mg/dL Urine Blood (Negative) Urine Nitrite (Negative) Urine Bilirubin (Negative) Urine Urobilinogen (Up to 0.2) mg/dL Ur Leukocyte Esterase (Negative) Urine RBC (0-2) HPF Urine WBC (0-5) HPF Ur Epithelial Cells (Negative) HPF Urine Crystals (Negative) HPF Urine Bacteria (Negative) HPF Urine Casts (Negative) LPF Urine Mucus (Negative) Ur Culture Indicated? Urine Glucose (Negative) mg/dL Salicylates (<2.8) mg/dL 6.9 Urine Opiates Screen (Negative) Urine Methadone Screen (Negative) Acetaminophen (10-30) ug/mL < 2 Ur Barbiturates Screen (Negative) Ur Tricyclics Screen (Negative) Ur Amphetamines Screen (Negative) U Benzodiazepines Scrn (Negative) Urine Cocaine Screen (Negative) Ur THC Screen (Negative) Ethyl Alcohol (<10) mg/dL Cancelled Range/Units 12/27/22 12/27/22 12/27/22 07:44 07:44 09:12 WBC (4.4-10.8) 10^3/uL RBC (4.36-5.78) 10^6/uL Hgb (13.5-17.5) g/dL Hct (40.0-50.0) % MCV (80-95) fL MCH (27.0-33.0) pg MCHC (32.0-36.0) % RDW (11.8-14.1) % Plt Count (130-400) 10^3/uL MPV (8.0-11.0) fL Immature Gran % Neutrophils % Lymphocytes % Monocytes % Eosinophils % Basophils % Nucleated RBC % (0.0-0.3) % Absolute Neutrophils (1.2-6.7) 10^3/uL Absolute Lymphocytes (1.2-3.4) 10^3/uL Absolute Monocytes (0.1-0.8) 10^3/uL Absolute Eosinophils (0.0-0.7) 10^3/uL Absolute Basophils (0.0-0.2) 10^3/uL Sodium (136-145) mmol/L Potassium (3.5-5.1) mmol/L Chloride (98-107) mmol/L Carbon Dioxide (21.0-32.0) mmol/L Anion Gap (3-11) mmol/L BUN (7-18) mg/dL Creatinine (0.70-1.30) mg/dL Est GFR (CKD-EPI 2020) (mL/min/1.73m2) Glucose (74-106) mg/dL Calcium (8.5-10.1) mg/dL Magnesium (1.8-2.4) mg/dL Total Bilirubin (0.2-1.0) mg/dL AST (15-37) U/L ALT (16-63) U/L Alkaline Phosphatase (46-116) U/L Ammonia (11-32) umol/L Troponin I (<or=60) ng/L 129 H* Total Protein (6.4-8.2) g/dL Albumin (3.4-5.0) g/dL Lipase (16-77) U/L Urine Color (Yellow) Yellow Urine Clarity (Clear) Clear Urine pH (5-8) 5.5 Ur Specific [place] (1.005-1.025) <= 1.005 Urine Protein (Negative) mg/dL Negative Urine Ketones (Negative) mg/dL Negative Urine Blood (Negative) Moderate H Urine Nitrite (Negative) Negative Urine Bilirubin (Negative) Negative Urine Urobilinogen (Up to 0.2) mg/dL 0.2 Ur Leukocyte Esterase (Negative) Negative Urine RBC (0-2) HPF 0-2 Urine WBC (0-5) HPF 0-2 Ur Epithelial Cells (Negative) HPF Few Urine Crystals (Negative) HPF Negative Urine Bacteria (Negative) HPF Negative Urine Casts (Negative) LPF Negative Urine Mucus (Negative) Negative Ur Culture Indicated? No Urine Glucose (Negative) mg/dL Negative Salicylates (<2.8) mg/dL Urine Opiates Screen (Negative) Negative Urine Methadone Screen (Negative) Positive A Acetaminophen (10-30) ug/mL Ur Barbiturates Screen (Negative) Negative Ur Tricyclics Screen (Negative) Negative Ur Amphetamines Screen (Negative) Negative U Benzodiazepines Scrn (Negative) Negative Urine Cocaine Screen (Negative) Negative Ur THC Screen (Negative) Negative Ethyl Alcohol (<10) mg/dL Range/Units 12/27/22 12/30/22 12/30/22 12:30 04:15 04:15 WBC (4.4-10.8) 10^3/uL 5.92 RBC (4.36-5.78) 10^6/uL 3.59 L Hgb (13.5-17.5) g/dL 10.9 L Hct (40.0-50.0) % 32.4 L MCV (80-95) fL 90 MCH (27.0-33.0) pg 30.4 MCHC (32.0-36.0) % 33.6 RDW (11.8-14.1) % 12.5 Plt Count (130-400) 10^3/uL 194 MPV (8.0-11.0) fL 9.3 Immature Gran % 0.2 Neutrophils % 41.8 Lymphocytes % 48.0 Monocytes % 5.9 Eosinophils % 3.4 Basophils % 0.7 Nucleated RBC % (0.0-0.3) % 0.0 Absolute Neutrophils (1.2-6.7) 10^3/uL 2.48 Absolute Lymphocytes (1.2-3.4) 10^3/uL 2.84 Absolute Monocytes (0.1-0.8) 10^3/uL 0.35 Absolute Eosinophils (0.0-0.7) 10^3/uL 0.20 Absolute Basophils (0.0-0.2) 10^3/uL 0.04 Sodium (136-145) mmol/L 144 Potassium (3.5-5.1) mmol/L 3.9 D Chloride (98-107) mmol/L 106 Carbon Dioxide (21.0-32.0) mmol/L 28.9 Anion Gap (3-11) mmol/L 9.1 BUN (7-18) mg/dL 17 Creatinine (0.70-1.30) mg/dL 0.8 Est GFR (CKD-EPI 2020) (mL/min/1.73m2) 105.17 Glucose (74-106) mg/dL 106 Calcium (8.5-10.1) mg/dL 8.5 Magnesium (1.8-2.4) mg/dL Total Bilirubin (0.2-1.0) mg/dL 0.2 AST (15-37) U/L 88 H ALT (16-63) U/L 44 Alkaline Phosphatase (46-116) U/L 53 Ammonia (11-32) umol/L Troponin I (<or=60) ng/L 108 H* Total Protein (6.4-8.2) g/dL 5.8 L Albumin (3.4-5.0) g/dL 3.0 L Lipase (16-77) U/L Urine Color (Yellow) Urine Clarity (Clear) Urine pH (5-8) Ur Specific [place] (1.005-1.025) Urine Protein (Negative) mg/dL Urine Ketones (Negative) mg/dL Urine Blood (Negative) Urine Nitrite (Negative) Urine Bilirubin (Negative) Urine Urobilinogen (Up to 0.2) mg/dL Ur Leukocyte Esterase (Negative) Urine RBC (0-2) HPF Urine WBC (0-5) HPF Ur Epithelial Cells (Negative) HPF Urine Crystals (Negative) HPF Urine Bacteria (Negative) HPF Urine Casts (Negative) LPF Urine Mucus (Negative) Ur Culture Indicated? Urine Glucose (Negative) mg/dL Salicylates (<2.8) mg/dL Urine Opiates Screen (Negative) Urine Methadone Screen (Negative) Acetaminophen (10-30) ug/mL Ur Barbiturates Screen (Negative) Ur Tricyclics Screen (Negative) Ur Amphetamines Screen (Negative) U Benzodiazepines Scrn (Negative) Urine Cocaine Screen (Negative) Ur THC Screen (Negative) Ethyl Alcohol (<10) mg/dL Range/Units 12/30/22 04:15 WBC (4.4-10.8) 10^3/uL RBC (4.36-5.78) 10^6/uL Hgb (13.5-17.5) g/dL Hct (40.0-50.0) % MCV (80-95) fL MCH (27.0-33.0) pg MCHC (32.0-36.0) % RDW (11.8-14.1) % Plt Count (130-400) 10^3/uL MPV (8.0-11.0) fL Immature Gran % Neutrophils % Lymphocytes % Monocytes % Eosinophils % Basophils % Nucleated RBC % (0.0-0.3) % Absolute Neutrophils (1.2-6.7) 10^3/uL Absolute Lymphocytes (1.2-3.4) 10^3/uL Absolute Monocytes (0.1-0.8) 10^3/uL Absolute Eosinophils (0.0-0.7) 10^3/uL Absolute Basophils (0.0-0.2) 10^3/uL Sodium (136-145) mmol/L Potassium (3.5-5.1) mmol/L Chloride (98-107) mmol/L Carbon Dioxide (21.0-32.0) mmol/L Anion Gap (3-11) mmol/L BUN (7-18) mg/dL Creatinine (0.70-1.30) mg/dL Est GFR (CKD-EPI 2020) (mL/min/1.73m2) Glucose (74-106) mg/dL Calcium (8.5-10.1) mg/dL Magnesium (1.8-2.4) mg/dL Total Bilirubin (0.2-1.0) mg/dL AST (15-37) U/L ALT (16-63) U/L Alkaline Phosphatase (46-116) U/L Ammonia (11-32) umol/L Troponin I (<or=60) ng/L < 50 Total Protein (6.4-8.2) g/dL Albumin (3.4-5.0) g/dL Lipase (16-77) U/L Urine Color (Yellow) Urine Clarity (Clear) Urine pH (5-8) Ur Specific [place] (1.005-1.025) Urine Protein (Negative) mg/dL Urine Ketones (Negative) mg/dL Urine Blood (Negative) Urine Nitrite (Negative) Urine Bilirubin (Negative) Urine Urobilinogen (Up to 0.2) mg/dL Ur Leukocyte Esterase (Negative) Urine RBC (0-2) HPF Urine WBC (0-5) HPF Ur Epithelial Cells (Negative) HPF Urine Crystals (Negative) HPF Urine Bacteria (Negative) HPF Urine Casts (Negative) LPF Urine Mucus (Negative) Ur Culture Indicated? Urine Glucose (Negative) mg/dL Salicylates (<2.8) mg/dL Urine Opiates Screen (Negative) Urine Methadone Screen (Negative) Acetaminophen (10-30) ug/mL Ur Barbiturates Screen (Negative) Ur Tricyclics Screen (Negative) Ur Amphetamines Screen (Negative) U Benzodiazepines Scrn (Negative) Urine Cocaine Screen (Negative) Ur THC Screen (Negative) Ethyl Alcohol (<10) mg/dL Sign Out Sign Out Data: Sign Out Comment: 52 yo with chest and epigastric pain, hx gastritis and esophagitis, paranoid and hallucinating. Repeat trop pending, needs psych eval, assess competency Last updated by Stephanie Burton MD at 12/27/22 08:10 Sign Out Comment: 52-year-old gentleman presents to the emergency room with hallucinations and as well as psychotic features. At some point he required Zyprexa 10 mg after he tried to elope from the emergency department trying to save his from a delusional kidnapping. Patient was seen by mental health. Is for certification is done. His second certification will be done within the next 24 hours. Last updated by Davonte Bryan MD at 12/27/22 18:41 Sign Out Comment: Patient presented with belly pain and chest pain. Long history of erosive gastritis. His and son gave the history of hallucinations, paranoia, and overall psychosis. The patient is currently EEG to but with second certification to be done today. Last updated by Stephanie Burton MD at 12/28/22 08:08 Sign Out Comment: This patient was signed out to me. Please see previous documentation for initial eval and prior course. During my shift, 2nd cert completed and home meds ordered. Initially calm and cooperative, at one point did become agitated and was preservating on ATF agents in the building, you need to go check for them. Given a total of 4mg of PO ativan and 5mg PO zyprexa with good effect. Remains in the ED pending psych placement. Will need to clarify methadone dosing tomorrow when clinic is open. Last updated by Felecia Dotson MD at 12/28/22 19:43 Sign Out Comment: 52-year-old with hallucinations, paranoia, and psychosis who is EE'd and awaiting placement. Last updated by Stephanie Burton MD at 12/29/22 07:51 Sign Out Comment: 52yo M, psychosis and paranoia, awaiting psych placement. EE & 2nd cert done, no acute events on my time. Last updated by Feelcia Dotson MD at 12/29/22 22:33 Discharge Plan Discharge Details Chief Complaint: PsychEval Clinical Impression: Gastritis, Psychosis Primary Care Provider: Holly Gunn ED Provider: Fabio Zelaya Home Meds and New Rx's Prescriptions: No Action sumatriptan succinate [Imitrex] 100 mg tablet 100 mg PO DIRECTED pantoprazole [Protonix] 40 mg tablet,delayed release (DR/EC) 40 mg PO BID Qty: 60 0RF gabapentin 600 mg tablet 600 mg PO HS sertraline 100 mg tablet 100 mg DAILY trazodone 100 mg tablet 100 mg HS Patient Comments: TAKE 1 TABLET BY MOUTH EVERY NIGHT FOR INSOMNIA FOR 3 NIGHTS THEN INCREASE TO 2 TABLETS NIGHTLY gabapentin 600 mg tablet 600 mg PO HS Patient Comments: TAKE ONE TABLET BY MOUTH EVERY EVENING gabapentin 300 mg capsule 300 mg PO BID Patient Comments: TAKE ONE CAPSULE BY MOUTH TWICE A DAY IN THE MORNING AND AT NOON methadone 10 mg Tablet 165 mg PO DAILY
[2022-12-30 04:24] LABS: Abs Immature Grans 0.01 10^3/uL (0.0-0.06); Absolute Basophil Count 0.04 10^3/uL (0.0-0.2); Absolute Lymphocyte Count 2.84 10^3/uL (1.2-3.4); Absolute Monocyte Count 0.35 10^3/uL (0.1-0.8); Absolute Neutrophil Count 2.48 10^3/uL (1.2-6.7); Basophils % 0.7; Eosinophils % 3.4; HCT 32.4 % (40.0-50.0); HGB 10.9 g/dL (13.5-17.5); Immature Grans % 0.2; MCH 30.4 pg (27.0-33.0); MCHC 33.6 % (32.0-36.0); MCV 90 fL (80-95); MPV 9.3 fL (8.0-11.0); Monocytes % 5.9; Neutrophils % 41.8; Platelet Count 194 10^3/uL (130-400); RBC 3.59 10^6/uL (4.36-5.78); RDW 12.5 % (11.8-14.1); RDW-SD 41.3 fL; WBC 5.92 10^3/uL (4.4-10.8)
[2022-12-30 04:50] LABS: Troponin I < 50 ng/L (<or=60)
[2022-12-30 04:51] LABS: ALT 44 U/L (16-63); AST 88 U/L (15-37); Alkaline Phosphatase 53 U/L (46-116); Anion Gap 9.1 mmol/L (3-11); BUN 17 mg/dL (7-18); Bilirubin, Total 0.2 mg/dL (0.2-1.0); CO2 28.9 mmol/L (21.0-32.0); CREATININE 0.8 mg/dL (0.70-1.30); Calcium 8.5 mg/dL (8.5-10.1); Chloride 106 mmol/L (98-107); Estimated GFR 105.17 (mL/min/1.73m2); Glucose 106 mg/dL (74-106); Potassium 3.9 mmol/L (3.5-5.1); Sodium 144 mmol/L (136-145); Total Protein 5.8 g/dL (6.4-8.2)
[2022-12-30] MEDS: Aspirin E.C. 81 MG TABEC PO (05:02)
--- NOTE | 2022-12-30 05:45 | DI.US_ITS ---
APPROVED REPORT EXAM: Comprehensive 2D, Doppler, and color-flow Echocardiogram Patient Location: In-Patient Room/Bed: ER1 Occasional Caregiver: Elvis Saldaña RDMS, RVT Indications: elevated troponin, recent CP Other Information Study Quality: Fair Conclusion Left ventricular wall thickness and chamber size. Ejection fraction is 60%. Wall motion is normal Normal right ventricular size and systolic function Both atria are normal in size Aortic valve is sclerotic and trileaflet without stenosis or regurgitation Thickened mitral leaflets without regurgitation Normal tricuspid valve with trace regurgitation. Right ventricular systolic pressure could not be es timated Wall motion Left Ventricle The left ventricle is normal size. The left ventricular systolic function is normal. The left ventric ular ejection fraction is within the normal range. There is normal left ventricular wall thickness. T here is normal LV segmental wall motion. There is no ventricular septal defect visualized. LVEF is 60 %. Right Ventricle The right ventricle is normal size. The right ventricular systolic function is normal. Unable to asse ss PA pressure. Atria The left atrium size is normal. The right atrium size is normal. The interatrial septum is intact wit h no evidence for an atrial septal defect. Aortic Valve The Aortic valve is sclerotic. There is no aortic valvular stenosis. No aortic regurgitation is prese nt. Mitral Valve Mitral valve leaflets are thickened. No evidence of mitral valve stenosis. Tricuspid Valve The tricuspid valve is normal in structure. There is no tricuspid valve stenosis. Trace tricuspid reg urgitation. Pulmonic Valve Pulmonic valve is not well visualized. There is no pulmonic valvular stenosis. There is no pulmonic v alvular regurgitation. Great Vessels The aortic root is normal in size. The ascending aorta is normal in size. Aortic arch is normal in ca liber. IVC is normal in size and collapses >50% with inspiration. Pericardium There is no pericardial effusion. 2D Dimensions IVSD d PLAX 0.66 cm M: 0.6-1.2 LV Vol A2C d MOD 147.4 mL LVPW d PLAX 0.68 cm M: 0.6 - 1.2 LV Vol A4C d MOD 126.3 mL LVID d PLAX 5.25 cm M: 4.2 - 5.8 LA vol/ BSA A4C s A-L 19.0 mL/m2 LVDs 3.60 cm M: 2.5 - 4.0 LA Area A4C s MOD 14.59 cm2 Ao Root d 2.76 cm M: 3.1 - 3.7 LV EF A4C MOD 61.2 % Ao Asc Diam d 3.36 cm M: 2.6 - 3.4 LV EF A2C MOD 62.1 % LV EF Teichholz 57.7 % LV EF Biplane MOD 59.7 % LVEF (Decker's) 59.74 % M: 52 - 72 SV 82.49 mL LV Volume 106.78 mL M: 62 - 150 SV Index 45.09 mL/m2 LV Volume Index 58.34 mL/m2 M: 34 - 74 LV Vol Biplane MOD 138.1 mL FS 30.60 % M-Mode TAPSE 2.47 cm (M/F) >1.7 LV Diastology MV E' medial 0.128 (>0.07 m/s) E/A Ratio 0.9 LV E/e MED 5.95 (<14) MV E Vmax 0.77 (0.4-1.3 m/s) MV E' lateral 0.114 (>0.1 m/s) MV A Vmax 0.90 (0.4-1.3 m/s) LV E/e LAT 6.75 (<14) MV E/A Ratio 0.85 MV E/E' medial 5.99 MV E/E' lateral 6.76 Aortic Valve LVOT Area 3.00 cm2 AoV Area Vmax 2.44 cm2 LVOT Vmax 1.12 m/s AoV Area/ BSA (Vmax) 1.33 cm2/m2 LVOT Mean Ashwin. 0.73 m/s ABILIO Mean Ashwin. 2.24 cm2 LVOT Peak Grad 5.0 mmHg ABILIO Mean Ashwin. Index 1.23 cm2/m2 LVOT Mean Grad 2.5 mmHg LVOT VTI 0.248 m LVOT Diam s 1.95 cm AoV Vmax 1.38 m/s Velocity Ratio 0.81 AoV Mean Ashwin. 0.98 m/s AoV Peak Grad 7.6 mmHg LVOT SV 74.31 mL AoV Mean Grad 4.4 mmHg AoV VTI 0.281 m AoV Area VTI 2.65 cm2 AoV Area/ BSA (VTI) 1.45 cm/m2 Mitral Valve MV DT 207 (160-240 msec) MV PHT 60 msec MV Area PHT 3.67 cm2 MV VTI 0.220 m MV Area VTI 3.38 (4.0-6.0 cm2) Pulmonary Valve PV Vmax 0.97 (0.5-1.5 m/s) RVOT Peak Gr. 0.82 mmHg PV Peak Grad 3.7 mmHg RVOT Mean Gr. 0.40 mmHg PV Mean Grad 2.0 mmHg RVOT VTI 0.085 m PV VTI 0.153 m RVOT Vmax 0.45 m/s
[2022-12-30 07:58] LABS: Troponin I < 50 ng/L (<or=60)
[2022-12-30] MEDS: Methadone Liquid 10 MG/ML 165 MG PO (08:07)
[2022-12-30] MEDS: Pantoprazole 40 MG TABCR PO (08:08)
[2022-12-30] MEDS: LORazepam 1 MG TAB 2 MG PO (08:08)
--- NOTE | 2022-12-30 11:36 | CMSP_ITS ---
Date of service: 12/30/22 Time of Service: 11:36 Care Management Safety Plan Status Status: Involuntary Reason for Wait Reason for Wait: Inpatient Admission Safety Plan Safety Plan: CHIEF COMPLAINT:??Patient presents in the ED for a chief complaint of chest pain and epigastric discomfort. ?While at the hospital, he exhibits a delusional and paranoid thought process, is hallucinating and wandering around the hospital.? His reports to ED staff that Kavin has been acting oddly for the past 8 months and says tonight prior to coming to [facility], patient was hitting his head, believing his son had .?He reportedly went for a walk and returned home covered in mud, claiming he had to lie down in a ditch because ATF officers were pointing guns at him.? Due to the bizarre thought process and behavior, patient was assessed by [facility] and subsequently placed on involuntary status.? He will remain at [facility] and will be reassessed twice daily by [facility] while he awaits? placement. The second certification was completed and was upheld.? CM reviewed case individually with [facility] pre billing clinician and Primary RN, no changes are made to safety plan. [facility] updates: [facility] Not accepted, No bed available [facility] Not accepted, No bed available [facility] Not accepted, Only accepting in house referrals, [facility] Not accepted, No bed available INVOLUNTARY?FOR INPATIENT PSYCHIATRIC STABILIZATION. Safety plan?has been established to meet the needs of the patient, and consideration of the care team, to adhere to patient goals, identify restrictions based on behavioral status, address nutrition, and determine allowed personal belongings, tools for hygiene and personal care. Determine level of activity including ambulation, level of supervision, visitors, and determine privileges based on behaviors and level of engagement by pt. SAFETY PLAN: 1. Will remain on SI/HI precautions. In Paper Clothes 2. Will remain in room under direct supervision of one-on-one staff at all times provided by CPSO, KARTHIKEYAN, SCALLOPER skin former. 3. May have paper cups, plates, finger foods as well as a cardboard spoon to eat meals with. 4. Follow [facility] Management of the Admitted Behavioral Health Patient policy. 5. Comfort bath system only. 6. No personal belongings. 7. Visitors: Limited to , Olimpia Fortune, and son, Kavin Fortune Jr., at RN discretion. 8. Activities: Soft cart items, music tablet, television, and other activities at RN discretion. 9. ?Bathroom privileges with supervision 10. Phone: May use [email or web address] hospital phone at RN discretion. 11. Due to INVOLUNTARY status, patient is being held at [facility] by the Department of Mental Health ([facility]) until 2nd certification by [facility] Psychiatrist can be performed (within 24 hours). Staff will provide de-escalation support (CPI) as needed. If patient wishes to leave [facility], staff will contact [facility] Crisis Screener ([phone]) and On-Call Senior Tech Manufacturing Engineering ([phone]) as soon as possible. In the event of elopement, notify [facility] Police ([phone]). Patient is currently involuntarily at [facility]. [facility] Frontline Mortuary Beautician will continue seeking placement. Please contact the Taxi Cab Driver Senior Tech Manufacturing Engineering ([phone]) for any needed changes to Safety Plan. Safety plan has been provided to interdepartmental care team. Patient will be transported by transitions manager rn at time of discharge.
--- NOTE | 2022-12-30 11:36 | PDOC.CMSAFE ---
Date of service: 12/30/22 Time of Service: 11:36 Care Management Safety Plan Status Status: Involuntary Reason for Wait Reason for Wait: Inpatient Admission Safety Plan Safety Plan: CHIEF COMPLAINT:??Patient presents in the ED for a chief complaint of chest pain and epigastric discomfort. ?While at the hospital, he exhibits a delusional and paranoid thought process, is hallucinating and wandering around the hospital.? His reports to ED staff that Kavin has been acting oddly for the past 8 months and says tonight prior to coming to [facility], patient was hitting his head, believing his son had .?He reportedly went for a walk and returned home covered in mud, claiming he had to lie down in a ditch because ATF officers were pointing guns at him.? Due to the bizarre thought process and behavior, patient was assessed by [facility] and subsequently placed on involuntary status.? He will remain at [facility] and will be reassessed twice daily by [facility] while he awaits? placement. The second certification was completed and was upheld.? CM reviewed case individually with [facility] product marketing engineer and Primary RN, no changes are made to safety plan. [facility] updates: [facility] Not accepted, No bed available [facility] Not accepted, No bed available [facility] Not accepted, Only accepting in house referrals, [facility] Not accepted, No bed available INVOLUNTARY?FOR INPATIENT PSYCHIATRIC STABILIZATION. Safety plan?has been established to meet the needs of the patient, and consideration of the care team, to adhere to patient goals, identify restrictions based on behavioral status, address nutrition, and determine allowed personal belongings, tools for hygiene and personal care. Determine level of activity including ambulation, level of supervision, visitors, and determine privileges based on behaviors and level of engagement by pt. SAFETY PLAN: 1. Will remain on SI/HI precautions. In Paper Clothes 2. Will remain in room under direct supervision of one-on-one staff at all times provided by CPSO, KARTHIKEYAN, PROFESSOR OF COUNSELING travel director. 3. May have paper cups, plates, finger foods as well as a cardboard spoon to eat meals with. 4. Follow [facility] Management of the Admitted Behavioral Health Patient policy. 5. Comfort bath system only. 6. No personal belongings. 7. Visitors: Limited to , Olimpia Fortune, and son, Kavin Fortune Jr., at RN discretion. 8. Activities: Soft cart items, music tablet, television, and other activities at RN discretion. 9. ?Bathroom privileges with supervision 10. Phone: May use [employer] hospital phone at RN discretion. 11. Due to INVOLUNTARY status, patient is being held at [facility] by the Department of Mental Health ([facility]) until 2nd certification by [facility] Psychiatrist can be performed (within 24 hours). Staff will provide de-escalation support (CPI) as needed. If patient wishes to leave [facility], staff will contact [facility] Crisis Screener ([phone]) and On-Call Tester Armature Or Fields ([phone]) as soon as possible. In the event of elopement, notify [facility] Police ([phone]). Patient is currently involuntarily at [facility]. [facility] Frontline Retail Receiving Clerk will continue seeking placement. Please contact the Business Account Leader Tester [employer] ([phone]) for any needed changes to Safety Plan. Safety plan has been provided to interdepartmental care team. Patient will be transported by assembler watch train at time of discharge.
--- NOTE | 2022-12-30 13:21 | PDOC.MHPN2 ---
Date of service: 12/30/22 Time of Service: 13:21 Mental Health Emergency Note Release [facility] release signed:: Yes Reason for Visit The client arrived on 12.27.22 initially for chest and epigastric discomfort per his initial note by Dr. Smith. He was screened by [facility] [place] and then EE'd by [facility] Preeti after he presented with a significant thought disorder that has been present for the last 2 years and more so in the last 8 months per his and following the of his father and 14 year old dog. Client remains on EE status and this was certified on 12.28.2022. Assessment was completed face to face. In the last 2 weeks has the pt presented for ES prior to today?: Unknown Client Information Client is: New Well Housed: Yes Non Suicidal Self Injury Current: No History: No Safety Risk/Harm to Self or Others Current Ideation to Harm Self or Others: No Risk: Does risk to harm exist?: yes. Access to means: No. Risk: High Risk Duty to warn indicated: No Asssessment/Mental Status Appearance: Disheveled Attitude: Cooperative and Demanding Behavior: Agitated Speech: Normal Affect: Cogruent with mood Mood: Sad, Depressed, Irritable and Angry Thought process: Loose associations, Tangential and Poverty of content Hallucinations: yes, Auditory Delusions: yes, Persectory/Paranoid Attention: Unremarkable Perception: Not impaired Orientation: Disoriented in Situation Memory: Impaired in: Recent Insight: Poor Judgement: Poor Additional Issues: Assaultive/Threatening Behavior: No Medical Concerns: No Client engaged in active self harm w/weapon: No Threatening to run away: No Child reported abuse/neglect: No Voluntarily presenting for services: No Domestic violence is a concern: No Extreme Psychosis or extreme behavior is present: Yes Impression Client is a 52 year old, , male who is disabled and lives with his in [facility]. He presented to the ED on 12.27.22 with complaints of medical issues and this quickly turned into a MH assessment and consequently an EE. The client presents today sitting up in his bed requesting an ice cream. He reported that he feels good and is waiting for his who is in the waiting room so I can go home. We discussed why he was there and the concerns his providers have for him and he argued that it was all a misunderstanding with the police. He then asked this clinician if I would listen to the police and they could clear this all up. He then began calling to the police statingthey can hear everything asking Tato and Terell if they can hear to come in and clear this all up. He called several times through the air and then asked if he could speak to his . This clinician clarified with him that he can not be aggressive toward her and his behavior cannot change as he would lose that privilege if he did. This conversation came about as the client stated once he learned he could not leave I'm going to kick my wifes ass. She called and put me in this situation. He did call and it was an appropriate conversation of him asking her to come down and clear up the misunderstanding. The client is clearly showing that he is experiencing hallucinations and delusions and continue to put himself and others at risk if he were to return to his home. Plan/Disposition Recommended Disposition: Hospitalization facilities contacted. Plan: The client was accepted by [facility] and is pending transfer. Person reported agreement to plan: No Facilities contacted if Applicable [facility] Accepted, Accepted/transfer pending. Information Sent to Kevin: Referral Reports/communication Outcome discussed with: ED/Personnel
--- NOTE | 2022-12-30 13:38 | W.EDPROG ---
Date of service: 12/30/22 Time of Service: 13:38 Medical Decision Making pt's echo unremarkable, no further workup per cardiology and is medically cleared for mental health transfer. Pt denies chest pain on my exam, is very tangential on exam. Sign Out Sign Out Data: Sign Out Comment: 52 yo with chest and epigastric pain, hx gastritis and esophagitis, paranoid and hallucinating. Repeat trop pending, needs psych eval, assess competency Last updated by Stephanie Burton MD at 12/27/22 08:10 Sign Out Comment: 52-year-old gentleman presents to the emergency room with hallucinations and as well as psychotic features. At some point he required Zyprexa 10 mg after he tried to elope from the emergency department trying to save his from a delusional kidnapping. Patient was seen by mental health. Is for certification is done. His second certification will be done within the next 24 hours. Last updated by Davonte Bryan MD at 12/27/22 18:41 Sign Out Comment: Patient presented with belly pain and chest pain. Long history of erosive gastritis. His and son gave the history of hallucinations, paranoia, and overall psychosis. The patient is currently EEG to but with second certification to be done today. Last updated by Stephanie Burton MD at 12/28/22 08:08 Sign Out Comment: This patient was signed out to me. Please see previous documentation for initial eval and prior course. During my shift, 2nd cert completed and home meds ordered. Initially calm and cooperative, at one point did become agitated and was preservating on ATF agents in the building, you need to go check for them. Given a total of 4mg of PO ativan and 5mg PO zyprexa with good effect. Remains in the ED pending psych placement. Will need to clarify methadone dosing tomorrow when clinic is open. Last updated by Felecia Dotson MD at 12/28/22 19:43 Sign Out Comment: 52-year-old with hallucinations, paranoia, and psychosis who is EE'd and awaiting placement. Last updated by Stephanie Burton MD at 12/29/22 07:51 Sign Out Comment: 52yo M, psychosis and paranoia, awaiting psych placement. EE & 2nd cert done, no acute events on my time. Last updated by Felecia Dotson MD at 12/29/22 22:33 Sign Out Comment: Patient here on EE, patient had chest pain and elevated troponins early in ED course on 12/27, now chest pain free and negative troponin this AM. Plan to followup on echocardiogram. Consult cardiology. Patient will need further medical clearance prior to placement. Last updated by Fabio Zelaya MD at 12/30/22 07:38 Discharge Plan Discharge Details Chief Complaint: PsychEval Clinical Impression: Gastritis, Psychosis Primary Care Provider: [facility] ED Provider: Davidson Zuñiga Home Meds and New Rx's Prescriptions: No Action sumatriptan succinate [Imitrex] 100 mg tablet 100 mg PO DIRECTED pantoprazole [Protonix] 40 mg tablet,delayed release (DR/EC) 40 mg PO BID Qty: 60 0RF gabapentin 600 mg tablet 600 mg PO HS sertraline 100 mg tablet 100 mg DAILY trazodone 100 mg tablet 100 mg HS Patient Comments: TAKE 1 TABLET BY MOUTH EVERY NIGHT FOR INSOMNIA FOR 3 NIGHTS THEN INCREASE TO 2 TABLETS NIGHTLY gabapentin 600 mg tablet 600 mg PO HS Patient Comments: TAKE ONE TABLET BY MOUTH EVERY EVENING gabapentin 300 mg capsule 300 mg PO BID Patient Comments: TAKE ONE CAPSULE BY MOUTH TWICE A DAY IN THE MORNING AND AT NOON methadone 10 mg Tablet 165 mg PO DAILY
[2022-12-30 14:19] LABS: Vitamin B12 308 pg/mL (211-911)
--- NOTE | 2022-12-30 14:59 | W.EDPROG ---
Date of service: 12/30/22 Time of Service: 14:59 Medical Decision Making pt stable, no chest pain, spoke with Dr. [facility] who accepts the patient Sign Out Sign Out Data: Sign Out Comment: 52 yo with chest and epigastric pain, hx gastritis and esophagitis, paranoid and hallucinating. Repeat trop pending, needs psych eval, assess competency Last updated by Stephanie Burton MD at 12/27/22 08:10 Sign Out Comment: 52-year-old gentleman presents to the emergency room with hallucinations and as well as psychotic features. At some point he required Zyprexa 10 mg after he tried to elope from the emergency department trying to save his from a delusional kidnapping. Patient was seen by mental health. Is for certification is done. His second certification will be done within the next 24 hours. Last updated by Davonte Bryan MD at 12/27/22 18:41 Sign Out Comment: Patient presented with belly pain and chest pain. Long history of erosive gastritis. His and son gave the history of hallucinations, paranoia, and overall psychosis. The patient is currently EEG to but with second certification to be done today. Last updated by Stephanie Burton MD at 12/28/22 08:08 Sign Out Comment: This patient was signed out to me. Please see previous documentation for initial eval and prior course. During my shift, 2nd cert completed and home meds ordered. Initially calm and cooperative, at one point did become agitated and was preservating on ATF agents in the building, you need to go check for them. Given a total of 4mg of PO ativan and 5mg PO zyprexa with good effect. Remains in the ED pending psych placement. Will need to clarify methadone dosing tomorrow when clinic is open. Last updated by Felecia Dotson MD at 12/28/22 19:43 Sign Out Comment: 52-year-old with hallucinations, paranoia, and psychosis who is EE'd and awaiting placement. Last updated by Stephanie Burton MD at 12/29/22 07:51 Sign Out Comment: 52yo M, psychosis and paranoia, awaiting psych placement. EE & 2nd cert done, no acute events on my time. Last updated by Felecia Dotson MD at 12/29/22 22:33 Sign Out Comment: Patient here on EE, patient had chest pain and elevated troponins early in ED course on 12/27, now chest pain free and negative troponin this AM. Plan to followup on echocardiogram. Consult cardiology. Patient will need further medical clearance prior to placement. Last updated by Fabio Zelaya MD at 12/30/22 07:38 Discharge Plan Disposition Specific Psychiatric Facility: [facility] Condition: Stable Discharge Details Chief Complaint: PsychEval Clinical Impression: Gastritis, Psychosis Primary Care Provider: [facility] ED Provider: Davidson Zuñiga Home Meds and New Rx's Prescriptions: No Action sumatriptan succinate [Imitrex] 100 mg tablet 100 mg PO DIRECTED pantoprazole [Protonix] 40 mg tablet,delayed release (DR/EC) 40 mg PO BID Qty: 60 0RF gabapentin 600 mg tablet 600 mg PO HS sertraline 100 mg tablet 100 mg DAILY trazodone 100 mg tablet 100 mg HS Patient Comments: TAKE 1 TABLET BY MOUTH EVERY NIGHT FOR INSOMNIA FOR 3 NIGHTS THEN INCREASE TO 2 TABLETS NIGHTLY gabapentin 600 mg tablet 600 mg PO HS Patient Comments: TAKE ONE TABLET BY MOUTH EVERY EVENING gabapentin 300 mg capsule 300 mg PO BID Patient Comments: TAKE ONE CAPSULE BY MOUTH TWICE A DAY IN THE MORNING AND AT NOON methadone 10 mg Tablet 165 mg PO DAILY
== END 2022-12-30 17:31 ==
PROVIDERS: Emergency Medicine; Student in an Organized Health Care Education/Training Program; Emergency Provider Emergency Medicine; PCP Nurse Practitioner Family
DX: K29.70 Gastritis, unspecified, without bleeding (principal); F29 Unspecified psychosis not due to a substance or known physiological condition; R07.9 Chest pain, unspecified; R10.13 Epigastric pain; F17.210 Nicotine dependence, cigarettes, uncomplicated; F11.91 Opioid use, unspecified, in remission
CPT/HCPCS: 36415; 80053; 80307; 83690; 93005; 93306; 96361; 96372; 96374; 96375; 99285; 70470; 71046; 80320; 80329; 81003; 81015; 82140; 82607; 83735; 84484; 85025; 93010; J1200; J1630; J2060; J3490

== ENCOUNTER → 2022-12-30 08:36 | Outpatient (BNVA) | payer MEDICARE, MEDICAID, SELFPAY ==
--- NOTE | 2022-12-30 10:04 | W.CARDCONSUL ---
Date of service: 12/30/22 Time of Service: 10:04 Assessment and Plan Assessment and plan (1) Gastric ulcer: Status: Acute Assessment and plan: See below (2) Gastritis: Status: Acute Assessment and plan: Patient has a recent diagnosis of gastric ulcer and has been felt to have gastritis. His presenting symptoms were consistent with this and not suggestive of a cardiac etiology. His EKGs overall are unremarkable. He had a minimally elevated troponin of unclear significance. His echo shows normal LV function, no wall motion abnormalities. I have no specific cardiac recommendations at this point in time. He is stable from the cardiac standpoint for transfer for mental health treatment (3) Psychosis: Status: Acute Assessment and plan: As above, await transfer History of Present Illness History of Present Illness Chief Complaint: Abdominal pain Narrative: This is a 52-year-old man who presented to the emergency room several days ago complaining of epigastric and abdominal discomfort. He is a fair historian. He said he had the pain for 12 days but it is no longer present. He was diagnosed with a gastric ulcer earlier in December and his current symptoms were clinically felt to represent gastritis. As part of evaluation he had multiple electrocardiograms. Initial electrocardiogram showed equivocal minimal anterolateral ST depression. All subsequent EKGs were normal. He has had troponins measured. On December 27, which was 3 days ago they range from 1 12-1 29 to 108. Subsequent troponins are normal. Patient additionally has mental health issues and is awaiting transfer to a facility. An echocardiogram was performed today and has been reviewed. It shows normal left ventricular function, no significant valvular disease, no wall motion abnormalities Review of Systems Cardiovascular Comments: Previously had epigastric and abdominal discomfort, not currently present [facility] All Active Problems Gastric ulcer (Acute) Gastritis (Acute) Psychosis (Acute) Medical History Migraine Surgical History History of back surgery History of knee surgery Social History Smoking/Tobacco Use Status: Current every day Tobacco Type: cigarettes Smoking risk assessment performed?: Yes Alcohol Intake: former Substance use type: former substance user, crack/cocaine and opiates Details: methadone clinic states he was using up until a couple weeks ago. Housing: house Do you feel safe at home: Yes Do you feel safe in your relationship?: Yes Exam Const Other: Thin disheveled looks older than stated age no acute distress Neck Other: No neck vein distention no V waves carotid pulsations are normal Resp Auscultation: clear to auscultation bilaterally Cardio Other: Heart is regular bradycardic without murmur or gallop Extrem Other: No peripheral edema
== END ==
PROVIDERS: PCP Nurse Practitioner Family; Referring Provider Nurse Practitioner Family; Visit Provider Internal Medicine Cardiovascular Disease

== ENCOUNTER 2023-01-28 15:19 | Outpatient (REF) | payer MEDICARE, MEDICAID, SELFPAY ==
[2023-01-28 20:54] LABS: Abs Immature Grans 0.03 10^3/uL (0.0-0.06); Absolute Basophil Count 0.07 10^3/uL (0.0-0.2); Absolute Eosinophil Count 0.16 10^3/uL (0.0-0.7); Absolute Lymphocyte Count 2.15 10^3/uL (1.2-3.4); Absolute Monocyte Count 0.56 10^3/uL (0.1-0.8); Absolute Neutrophil Count 2.87 10^3/uL (1.2-6.7); Basophils % 1.2; Eosinophils % 2.7; HCT 38.1 % (40.0-50.0); HGB 12.4 g/dL (13.5-17.5); Immature Grans % 0.5; Lymphocytes % 36.8; MCH 30.7 pg (27.0-33.0); MCHC 32.5 % (32.0-36.0); MCV 94 fL (80-95); MPV 10.6 fL (8.0-11.0); Monocytes % 9.6; Neutrophils % 49.2; Platelet Count 236 10^3/uL (130-400); RBC 4.04 10^6/uL (4.36-5.78); RDW 13.4 % (11.8-14.1); RDW-SD 46.5 fL; WBC 5.84 10^3/uL (4.4-10.8)
[2023-01-28 21:14] LABS: ALT 30 U/L (16-63); AST 26 U/L (15-37); Albumin 3.7 g/dL (3.4-5.0); Alkaline Phosphatase 59 U/L (46-116); Anion Gap 7.3 mmol/L (3-11); BUN 15 mg/dL (7-18); Bilirubin, Total 0.3 mg/dL (0.2-1.0); CO2 28.7 mmol/L (21.0-32.0); CREATININE 0.9 mg/dL (0.70-1.30); Calcium 8.6 mg/dL (8.5-10.1); Chloride 105 mmol/L (98-107); Estimated GFR 101.49 (mL/min/1.73m2); Glucose 95 mg/dL (74-106); Sodium 141 mmol/L (136-145); Total Protein 7.5 g/dL (6.4-8.2)
[2023-01-28 21:47] LABS: VALPROIC ACID 67.3 ug/mL
== END 2023-01-28 15:20 | disposition home or self-care (01) ==
LOC: NCHCN 15:19
PROVIDERS: PCP Nurse Practitioner Family; Visit Provider Nurse Practitioner Family
DX: R10.33 Periumbilical pain (principal); R10.84 Generalized abdominal pain; F29 Unspecified psychosis not due to a substance or known physiological condition; Z51.81 Encounter for therapeutic drug level monitoring; Z79.899 Other long term (current) drug therapy
CPT/HCPCS: 80053; 80164; 85025

== ENCOUNTER 2023-01-30 00:30 | Emergency (ER) | payer MEDICARE, MEDICAID, SELFPAY ==
--- NOTE | 2023-01-30 00:30 | RT.EKG_ITS ---
APPROVED REPORT Exam: Resting ECG Reason for Exam: QT prolonging medications Patient Location: E HR:56 bpm ECG Measurements Heart Rate 56 AXIS IL 147 P 65 QRSd 85 QRS 59 QT 452 T 36 QTc 436 Conclusion Sinus bradycardia...rate< 60 Appropriate intervals. No QT prolongation. No ST segment or T wave abnormalities to suggest occlusive CA
--- NOTE | 2023-01-30 00:30 | DI.CT_ITS ---
Exam(s) CT HEAD WO EXAM: CT HEAD WO CLINICAL HISTORY: severe LAMBERT, increasing frequency of migraines. TECHNIQUE: Imaging Protocol: Axial computed tomography images with coronal and sagittal reformatted images were created and reviewed COMPARISON: CT CT HEAD WO/W from 12/27/2022 FINDINGS: There are no skull fractures. There is no fluid in the visualized paranasal sinuses. There is no evidence of intracranial hemorrhage, mass effect, or shift of midline structures. There are no extra-axial fluid collections. The ventricles are not enlarged or shifted and there is no blo od within the ventricular system nor within the basal cisterns. IMPRESSION: No acute intracranial findings on this noninfused CT scan of the brain. RADIATION DOSE DELIVERED: 722.59mGy.cm Total DLP DATA REPOSITORY: All CT scans at this facility are submitted to the National Radiology Data Registry (NRDR) Dose Index Registry (DIR) with the [employer] (A[employer]). RADIATION OPTIMIZATION: All CT scans at this facility use at least one of these dose optimization te chniques: automated exposure control; mA and/or kV adjustment per patient size (includes targeted exa ms where dose is matched to clinical indication); or iterative reconstruction.
[2023-01-30 00:35] VITALS: BP 120/76; PULSE 60; RESP 19; TEMP 36.6; O2SAT 95
[2023-01-30] MEDS: Ketorolac 30 MG/ML VIAL 15 MG IVP (00:58)
[2023-01-30] MEDS: Droperidol 5 MG/2 ML VIAL 1.25 MG IVP (00:58)
[2023-01-30] MEDS: ACETAMINOPHEN 1,000 MG/100 ML BTL 400 MG IVPB (00:58)
[2023-01-30] MEDS: diphenhydrAMINE 50 MG/ML VIAL 25 MG IVP (00:59)
[2023-01-30] MEDS: Normal Saline 1,000 ML 1000 ML IV (00:59)
[2023-01-30] MEDS: SUMAtriptan 6 MG/0.5 ML VIAL SC (00:59)
--- NOTE | 2023-01-30 01:09 | ED.GENADUL_ITS ---
Discharge Plan Disposition Patient Disposition: Home Condition: Good Discharge Details Clinical Impression: Migraine Primary Care Provider: Holly Gunn ED Provider: Felecia Dotson Home Meds and New Rx's Prescriptions: No Action sumatriptan succinate [Imitrex] 100 mg tablet 100 mg PO DIRECTED pantoprazole [Protonix] 40 mg tablet,delayed release (DR/EC) 40 mg PO BID Qty: 60 0RF gabapentin 600 mg tablet 600 mg PO HS sertraline 100 mg tablet 100 mg PO DAILY trazodone 100 mg tablet 100 mg HS Patient Comments: TAKE 1 TABLET BY MOUTH EVERY NIGHT FOR INSOMNIA FOR 3 NIGHTS THEN INCREASE TO 2 TABLETS NIGHTLY gabapentin 600 mg tablet 600 mg PO HS Patient Comments: TAKE ONE TABLET BY MOUTH EVERY EVENING gabapentin 300 mg capsule 300 mg PO BID Patient Comments: TAKE ONE CAPSULE BY MOUTH TWICE A DAY IN THE MORNING AND AT NOON methadone 10 mg Tablet 165 mg PO DAILY Discharge Instructions Instructions: General Headache (ED) Additional Instructions: Call your primary care doctor today to schedule an appointment to follow up on your visit here and to discuss resuming preventative migraine medications. Return to the emergency department for new or worsening symptoms. Referrals: Holly Gunn [Primary Care Provider] - Medical Decision Making 52yo M with hx migraines presenting with headache typical of his usual ehsan jamison, not improved with home abortive meds. Not currently on preventative medications. Vital signs and physical exam reassuring, no neurological deficits, no temporal tenderness to suggest giant cell arteritis. Low suspicion for acute intracranial process however given increasing frequency of headaches CT non con ordered and reviewed; no bleed or mass on my view, agree with radiology read below. Patient on multiple QT prolongining medications: EKG orderd with normal QTc. Symptom treatment with IVFB, tylenol, toradol, droperidol, benadyrl. On reassessment patient sleeping comfortably. Subsequently woke, reports feeling much better, requesting discharge home. Discharged home; discharge instructions including return precautions were reviewed with patient who verbalized understanding. All questions were answered and they are in full agreement with the plan. Imaging Data Radiologic Study: Imaging: CT Scan Radiologist's impression: No acute intracranial process is detected HPI General Mode of arrival: ambulatory . Date/Time Provider Initiated Documentation: 01/30/23 00:31 . Limitations to Documentation: no limitations . Information obtained by: patient . HPI Narrative: 52yo M with hx migraines presenting with headache typical of his usual migraines. Started about 3 hours prior to presentation, not improved with home abortive meds. Not currently on preventative medications. Has had frequent migraines this week, 4-5 times, usually does not have this many. Otherwise no change from his usual headaches. He is otherwise in his usual state of health with no fevers, chills, rash, nausea, vomiting, numbness, tingling, weakness, or other concerns. Related Data Home Medications Medication Instructions Recorded Confirmed methadone 10 mg tablet 165 mg PO DAILY 12/29/19 01/30/23 pantoprazole 40 mg tablet,delayed 40 mg PO BID #60 tabs 05/16/22 01/30/23 release (Protonix) sumatriptan succinate 100 mg 100 mg PO DIRECTED 06/26/22 01/30/23 tablet (Imitrex) gabapentin 600 mg tablet 600 mg PO HS 12/27/22 01/30/23 sertraline 100 mg tablet 100 mg PO DAILY 12/27/22 01/30/23 trazodone 100 mg tablet 100 mg HS 12/27/22 01/30/23 gabapentin 300 mg capsule 300 mg PO BID 12/28/22 01/30/23 gabapentin 600 mg tablet 600 mg PO HS 12/28/22 01/30/23 Previous Rx's Medication Instructions Recorded pantoprazole 40 mg tablet,delayed 40 mg PO BID #60 tabs 05/16/22 release (Protonix) Allergies Allergy/AdvReac Type Severity Reaction Status Date / Time varenicline [From Chantix] AdvReac Severe Other (See Unverified 01/30/23 00:35 Comment) General Stated Complaint: Headache KERA: 4 Review of Systems Narrative: see HPI PFSH All Active Problems (Updated 01/30/23 @ 02:57 by Felecia Dotson MD) Migraine (Chronic) Medical History Migraine Surgical History History of back surgery History of knee surgery Social History Smoking/Tobacco Use Status: Current every day Tobacco Type: cigarettes Smoking risk assessment performed?: Yes Alcohol Intake: former Substance use type: former substance user, crack/cocaine and opiates Details: methadone clinic states he was using up until a couple weeks ago. Housing: house Do you feel safe at home: Yes Do you feel safe in your relationship?: Yes Exam Narrative Exam Narrative: General: Alert, well appearing, well nourished, in no acute distress. Head: Normocephalic, atraumatic Neck: Trachea midline, Neck supple. ENT: MMM. Cardiac: RRR, no murmurs appreciated Resp: No respiratory distress. CTAB. Abd: Soft, non-distended, nontender : No suprapubic tenderness. Extremities: No deformities. No peripheral edema. Neuro: GCS 15. PERRL. EOMI. Fluent speech, no dysarthria. No facial asymmetry, no nasolabial fold flattening. Normal hearing to speech Motor- 5/5 strength symmetric bilateral upper and lower extremities Sensation- Intact to light touch and symmetric multiple dermatomes including upper and lower extremities. Normal sensation in V1, V2, and V3 segments bilaterall Coordination- No dysmetria on finger to nose Gait/station: Normal stance. No truncal ataxia. Steady gait with equal normal steps Course Vital Signs Vital signs: Vital Signs Temperature 36.6 C 01/30/23 00:35 Pulse 60 01/30/23 00:35 Respiratory Rate 19 01/30/23 00:35 Blood Pressure 120/76 01/30/23 00:35 Pulse Oximetry 95 01/30/23 00:35 Temperature 36.6 C 01/30/23 00:35 Temperature Source Oral 01/30/23 00:35 Pulse 60 01/30/23 00:35 Respiratory Rate 19 01/30/23 00:35 Respiratory Effort Normal, Non-Labored 01/30/23 00:37 Blood Pressure 120/76 01/30/23 00:35 Blood Pressure Position Sitting 01/30/23 00:35 Pulse Oximetry 95 01/30/23 00:35 Oxygen Delivery Method Room Air 01/30/23 00:35 Oxygen Flow Rate 0 01/30/23 00:35 Pain Level 8 01/30/23 00:37
--- NOTE | 2023-01-30 01:29 | DI.VRAD_ITS ---
PROCEDURE INFORMATION: Exam: CT Head Without Contrast Exam date and time: 01/30/2023 1:13 AM Age: 52 years old Clinical indication: Pain; Headache; Aura effect not specified; Other: Unknown; Patient HX: Severe LAMBERT, increasing frequency of migraines TECHNIQUE: Imaging protocol: Computed tomography of the head without contrast. Radiation optimization: All CT scans at this facility use at least one of these dose optimization techniques: automated exposure control; mA and/or kV adjustment per patient size (includes targeted exams where dose is matched to clinical indication); or iterative reconstruction. COMPARISON: CT HEAD WO/W 12/27/2022 7:03 AM FINDINGS: Brain: Cerebral sulci show bilateral symmetry with no supratentorial mass or mass effect detected. Brainstem and cerebellum are unremarkable and the developmental venous anomaly noted in the posteromedial left cerebellar hemisphere on the previous enhanced CT is not clearly visible on the current noncontrast images.. There is no evidence of acute transcortical infarction or recent intracranial hemorrhage. Cerebral ventricles: Ventricular and cisternal spaces are normal in size and configuration and there is no midline shift or hydrocephalus seen. Paranasal sinuses: Grossly clear throughout. Mastoid air cells: Grossly clear bilaterally. Bones/joints: Bony calvarium and skull base are intact and no acute fractures are detected. Soft tissues: Unremarkable. IMPRESSION: No evidence of acute transcortical infarction, recent intracranial hemorrhage or hydrocephalus. No acute intracranial process is detected. Dictated and Authenticated by: Milo Landeros MD. Ordering:NASH Izquierdo MD
[2023-01-30 03:37] VITALS: BP 111/68; PULSE 78; RESP 16; TEMP 36.9; O2SAT 97
== END 2023-01-30 03:46 | disposition home or self-care (01) ==
PROVIDERS: Emergency Provider Student in an Organized Health Care Education/Training Program; PCP Nurse Practitioner Family
DX: G43.909 Migraine, unspecified, not intractable, without status migrainosus (principal)
CPT/HCPCS: 93005; 96361; 96372; 96374; 96375; 99284; 70450; 93010; J0131; J1200; J1790; J1885

== ENCOUNTER 2023-02-01 15:42 | Emergency (ER) | payer MEDICARE, MEDICAID, SELFPAY ==
[2023-02-01] VITALS (21 sets, daily range): BP systolic 100–149; BP diastolic 53–80; PULSE 53–62; RESP 18; TEMP 37.1; O2SAT 89–95
--- NOTE | 2023-02-01 16:05 | ED.GENADUL_ITS ---
Discharge Plan Disposition Patient Disposition: Home Discharge Details Clinical Impression: Migraine Primary Care Provider: Holly Gunn ED Provider: Abdelrahman Falk Home Meds and New Rx's Prescriptions: Continued pantoprazole [Protonix] 40 mg tablet,delayed release (DR/EC) 40 mg PO BID Qty: 60 0RF gabapentin 600 mg tablet 600 mg PO TID sertraline 100 mg tablet 100 mg PO DAILY trazodone 100 mg tablet 100 mg HS Patient Comments: TAKE 1 TABLET BY MOUTH EVERY NIGHT FOR INSOMNIA FOR 3 NIGHTS THEN INCREASE TO 2 TABLETS NIGHTLY methadone 10 mg Tablet 165 mg PO DAILY quetiapine 200 mg tablet 200 mg DAILY Patient Comments: TAKE 1 TABLET BY MOUTH AT BEDTIME esomeprazole magnesium 40 mg capsule,delayed release(DR/EC) divalproex 500 mg tablet extended release 24 hr 500 mg PO TID Patient Comments: TAKE 1 TABLET BY MOUTH EVERY MORNING AND 2 TABLETS AT BEDTIME sumatriptan succinate [Imitrex] 100 mg tablet 100 mg PO DIRECTED Qty: 3 0RF Discontinued gabapentin 600 mg tablet 600 mg PO HS Patient Comments: pt states not taking 02/01/23 gabapentin 300 mg capsule 300 mg PO BID Patient Comments: pt states not taking 02/01/23 Discharge Instructions Instructions: Migraine Headache (ED) Additional Instructions: Please follow-up with your primary care provider for further discussion of increasing quantity of medication if you continue to have greater frequency of your migraines. You may also want to discuss with them possible neurology referral to see if there are any other treatment options that would better control your symptoms. Please stay well-hydrated and get plenty of rest and return to the emergency department for any new or significant worsening of symptoms or atypical pattern for your headaches. Referrals: Holly Gunn [Primary Care Provider] - Discharge Data Discharge Date/Time-TO BE ENTERED AT DEPARTURE: 02/01/23 18:12 Medical Decision Making Patient presenting to the emergency department for chief complaint of migraine headache. Patient has history of migraine headaches and states this is similar to the headache pattern that he has had for over 25 years. He reports due to insurance changes recently that he can no longer get the injectable Imitrex and is only limited to 10 p.o. tablets per month which does not always help alleviate his symptoms. Patient otherwise denies any other symptoms including neck pain, fever chills, focal neurological findings, vision change, excessive nausea or vomiting. Physical exam is unremarkable with no concerning findings. Given patient stating typical migraine pattern with no change, normal exam, and review of records showing the patient was seen in the emergency department within the last month with extensive work-up that was negative I do not feel that repeating any further work-up is needed and will treat patient symptomatically with Toradol, IV Tylenol, fluids, Benadryl and Compazine. We will also give 10 mg of Decadron to attempt to prevent recurrence. Patient reassessed and has had significant improvement of headache and is feeling better. I do feel that patient is able to be safely discharged home. Will prescribe patient 3 additional tablets to help patient get to the end of the month before he can get a refill of his medication. After discussion of diagnosis and plan of care patient has no further needs, questions, or concerns and states clear understanding to return to the emergency department for any worsening symptoms. This documentation was generated using [employer] dictation system, please disregard any oddities of phrase or misspellings. HPI General Mode of arrival: ambulatory . Date/Time Provider Initiated Documentation: 02/01/23 15:42 . Limitations to Documentation: no limitations . Information obtained by: patient, family and RN notes reviewed . History of Present Illness 52 year old M presents to the emergency department with the chief complaint of Migraine headache, described as moderate and similar to prior episodes, Patient started experiencing this hour(s) (3) and it has been constant. No relieving factors improve symptom(s), No exacerbating factors reported . Patient notes no other symptoms.. Patient did receive the following treatments prior to arrival, NSAID Related Data Home Medications Medication Instructions Recorded Confirmed methadone 10 mg tablet 165 mg PO DAILY 12/29/19 02/01/23 pantoprazole 40 mg tablet,delayed 40 mg PO BID #60 tabs 05/16/22 02/01/23 release (Protonix) gabapentin 600 mg tablet 600 mg PO TID 12/27/22 02/01/23 sertraline 100 mg tablet 100 mg PO DAILY 12/27/22 02/01/23 trazodone 100 mg tablet 100 mg HS 12/27/22 02/01/23 divalproex 500 mg tablet,extended 500 mg PO TID 02/01/23 02/01/23 release 24 hr esomeprazole magnesium 40 mg mg 02/01/23 02/01/23 capsule,delayed release quetiapine 200 mg tablet 200 mg DAILY 02/01/23 02/01/23 sumatriptan succinate 100 mg 100 mg PO DIRECTED #3 tabs 02/01/23 tablet (Imitrex) Previous Rx's Medication Instructions Recorded pantoprazole 40 mg tablet,delayed 40 mg PO BID #60 tabs 05/16/22 release (Protonix) sumatriptan succinate 100 mg 100 mg PO DIRECTED #3 tabs 02/01/23 tablet (Imitrex) Allergies Allergy/AdvReac Type Severity Reaction Status Date / Time varenicline [From Chantix] AdvReac Severe Other (See Unverified 02/01/23 15:46 Comment) General Stated Complaint: Headache KERA: 3 Review of Systems Constitutional Constitutional: Denies body ache(s), Denies chills, Denies fever(s) and Reports headache(s) Eyes Eyes: Denies change in vision ENT Ears, Nose, Mouth, and Throat: Denies dizziness, Reports headache(s) and Denies neck pain Cardiovascular Cardiovascular: Denies chest pain and Denies syncope Gastrointestinal Gastrointestinal: Denies nausea and Denies vomiting Musculoskeletal Musculoskeletal: Denies neck pain Neurologic Neurologic: Reports as per HPI, Denies dizziness, Denies syncope, Reports headache(s) and Denies sensory deficit PFSH All Active Problems (Updated 02/01/23 @ 17:27 by Abdelrahman Falk NP) Migraine (Chronic) Medical History Migraine Surgical History History of back surgery History of knee surgery Social History Smoking/Tobacco Use Status: Current every day Tobacco Type: cigarettes Smoking risk assessment performed?: Yes Alcohol Intake: former Substance use type: former substance user, crack/cocaine and opiates Details: methadone clinic states he was using up until a couple weeks ago. Housing: house Do you feel safe at home: Yes Do you feel safe in your relationship?: Yes Exam Const General: cooperative, healthy appearing, no acute distress and well groomed Orientation: alert, awake and oriented x3 HENMT Head: normal to inspection Ears: hearing grossly normal bilaterally and TM's normal bilaterally Mouth: oral mucosae normal and moist mucous membranes Throat: posterior oropharynx normal Eyes Visual Aponte: normal visual aponte by confrontation Alignment and Position: alignment normal Periorbital: periorbital findings normal Eyelids: eyelids normal Sclera: sclerae normal Cornea: corneas normal Pupils: PERRL EOM: EOM intact bilaterally Neck Neck: normal visual inspection, full ROM, no lymphadenopathy and no meningeal signs Resp Effort & Inspection: normal respiratory effort and able to speak in complete sentences Auscultation: clear to auscultation bilaterally Cardio Rate: regular rate Rhythm: regular rhythm Heart Sounds: S1 normal and S2 normal Neuro General: patient alert, patient awake, patient oriented x3, gait normal, tone normal, moves all extremities, CN's II-XI intact bilaterally and not confused Cognition: normal cognition Speech: speech normal Motor: muscle tone normal throughout, strength 5/5 throughout, no pronator drift, no movement abnormalities noted and no fasciculations Sensory Exam: no sensory deficits noted Coordination: [id number] test normal, Romberg test normal, Does not sway with eyes open, rapid alternating movement UE normal and rapid alternating movement LE normal Course Vital Signs Vital signs: Vital Signs Temperature 37.1 C 02/01/23 15:43 Pulse 61 02/01/23 15:43 Respiratory Rate 18 02/01/23 15:43 Blood Pressure 149/80 H 02/01/23 15:43 Pulse Oximetry 95 02/01/23 15:43 Temperature 37.1 C 02/01/23 15:43 Temperature Source Skin 02/01/23 15:43 Pulse 61 02/01/23 15:43 Respiratory Rate 18 02/01/23 15:43 Blood Pressure 149/80 H 02/01/23 15:43 Blood Pressure Position Sitting 02/01/23 15:43 Pulse Oximetry 95 02/01/23 15:43 Oxygen Delivery Method Room Air 02/01/23 15:43 Oxygen Flow Rate 0 02/01/23 15:43 Pain Level 9 02/01/23 15:43
[2023-02-01] MEDS: Ketorolac 15 MG/ML VIAL IVP (16:18)
[2023-02-01] MEDS: Normal Saline 1,000 ML 1000 ML IV (16:18)
[2023-02-01] MEDS: Dexamethasone 10 MG/ML VIAL IVP (16:19)
[2023-02-01] MEDS: diphenhydrAMINE 50 MG/ML VIAL 25 MG IVP (16:19)
[2023-02-01] MEDS: ACETAMINOPHEN 1,000 MG/100 ML BTL 400 MG IVPB (16:19)
[2023-02-01] MEDS: Prochlorperazine 10 MG/2 ML VIAL 5 MG IVP (16:20)
[2023-02-01] MEDS: Ketorolac 30 MG/ML VIAL (16:34)
== END 2023-02-01 18:12 | disposition home or self-care (01) ==
PROVIDERS: Emergency Provider Nurse Practitioner Family; PCP Nurse Practitioner Family
DX: G43.909 Migraine, unspecified, not intractable, without status migrainosus (principal)
CPT/HCPCS: 96365; 96375; 99284; 99283; J0131; J0780; J1100; J1200; J1885

== ENCOUNTER 2023-02-05 00:08 | Emergency (ER) | payer MEDICARE, MEDICAID, SELFPAY ==
--- NOTE | 2023-02-05 | RT.EKG_ITS ---
APPROVED REPORT Exam: Resting ECG Reason for Exam: SOB Patient Location: E HR:57 bpm ECG Measurements Heart Rate 57 AXIS MS 136 P 54 QRSd 79 QRS 32 QT 444 T 40 QTc 432 Conclusion Sinus bradycardia...rate< 60 Physician: no stemi
[2023-02-05 00:11] VITALS: BP 160/89; PULSE 56; RESP 22; TEMP 36.7; O2SAT 93
--- NOTE | 2023-02-05 00:15 | DI.CT_ITS ---
Exam(s) CT HEAD WO EXAM: CT HEAD WO CLINICAL HISTORY: right head pain, r/o mass. TECHNIQUE: Imaging Protocol: Axial computed tomography images with coronal and sagittal reformatted images were created and reviewed COMPARISON: CT CT HEAD WO from 01/30/2023 FINDINGS: There are no skull fractures. There is no fluid in the visualized paranasal sinuses. There is no evidence of intracranial hemorrhage, mass effect, or shift of midline structures. There are no extra-axial fluid collections. The ventricles are not enlarged or shifted and there is no blo od within the ventricular system nor within the basal cisterns. IMPRESSION: No acute intracranial findings on this noninfused CT scan of the brain. RADIATION DOSE DELIVERED: 692.14mGy.cm Total DLP DATA REPOSITORY: All CT scans at this facility are submitted to the National Radiology Data Registry (NRDR) Dose Index Registry (DIR) with the [employer] ([employer]). RADIATION OPTIMIZATION: All CT scans at this facility use at least one of these dose optimization te chniques: automated exposure control; mA and/or kV adjustment per patient size (includes targeted exa ms where dose is matched to clinical indication); or iterative reconstruction.
--- NOTE | 2023-02-05 00:28 | ED.GENADUL_ITS ---
Discharge Plan Disposition Patient Disposition: Home Condition: Good Discharge Details Clinical Impression: Headache Primary Care Provider: Holly Gunn ED Provider: Agapito Maynard Home Meds and New Rx's Prescriptions: No Action pantoprazole [Protonix] 40 mg tablet,delayed release (DR/EC) 40 mg PO BID Qty: 60 0RF gabapentin 600 mg tablet 600 mg PO TID sertraline 100 mg tablet 100 mg PO DAILY trazodone 100 mg tablet 100 mg HS Patient Comments: TAKE 1 TABLET BY MOUTH EVERY NIGHT FOR INSOMNIA FOR 3 NIGHTS THEN INCREASE TO 2 TABLETS NIGHTLY methadone 10 mg Tablet 165 mg PO DAILY quetiapine 200 mg tablet 200 mg DAILY Patient Comments: TAKE 1 TABLET BY MOUTH AT BEDTIME esomeprazole magnesium 40 mg capsule,delayed release(DR/EC) divalproex 500 mg tablet extended release 24 hr 500 mg PO TID Patient Comments: TAKE 1 TABLET BY MOUTH EVERY MORNING AND 2 TABLETS AT BEDTIME sumatriptan succinate [Imitrex] 100 mg tablet 100 mg PO DIRECTED Qty: 3 0RF Discharge Instructions Instructions: General Headache (ED) Additional Instructions: Please follow closely with your primary care provider in regards to longstanding headache pharmaceutical management. If you notice any worsening of your symptoms, or any new symptoms such as vomiting, diarrhea, fever, chills, shortness of breath, chest pain, numbness, weakness, or fainting , please return immediately to the emergency department for reevaluation. Please follow up with your primary care provider as soon as possible for reassessment and reevaluation. As always, it was a pleasure participating in your medical care today. Referrals: Holly Gunn [Primary Care Provider] - Medical Decision Making 52-year-old male with a past medical history of migraine headaches, who presents today for evaluation of headache. Patient has had cluster headaches for the past 20+ years. He had been taking injectable Imitrex to great success, unfortunately insurance and finances no longer allow this to be feasible. Over the last week and a half he has had 3 episodes/recurrences of these headaches. He has presented to the ER for 2 of them and this is his current third visit. He states that his symptoms are identical to his normal headaches. Usually resolves with treatment, and then can come back randomly on its own. He has been prescribed a new abortive headache medication but he has not had a chance to fill this yet. He denies any fever or chills. He states that the headache came on gradually and is identical to the previous symptomatology of his other headaches. He denies vision changes, numbness tingling or weakness. States that he has not been drinking much water. He denies any falls or trauma. He is not on any blood thinners. He denies that this is the worst headache of his life, thunderclap headache, or history of aneurysms bleeds or strokes. No other complaints at this time. No other modifying factors. Exam demonstrates well-appearing male, dry mucous membranes. Patient states that his tongue is sticking to his mouth which is making his speech sound funny, but he denies any difficulty speaking. Neurologic assessment is unremarkable. No meningeal signs. Eyes demonstrate no pain or tenderness to suggest acute angle-closure glaucoma. He denies any IV or illicit drug use. No murmurs auscultated. Symptoms. Clinically inconsistent for meningitis, bleed or stroke. It is slightly atypical that his symptoms have recurred over the last few days for repeat ER visits, however it does clinically make sense as he has not had his normal abortive medication. We will treat with a migraine cocktail of Benadryl, Compazine, Solu-Medrol, fluids, and Toradol. We will get a CT scan of the head out of an abundance of precaution to rule out any new mass. We will monitor closely and reassess. 2:[address] scan negative for acute process. On reassessment patient's headache has completely resolved, he feels well and is requesting discharge. Symptoms at this time appear clinically inconsistent with intracranial bleed, tumor, or meningitis. Patient stable for discharge. Recommend continued outpatient management with his recently prescribed medications. Discussed red flags for which to return. I have extensively reviewed the treatment plan and discharge instructions with the patient. I have addressed all patient concerns at this time. The patient was made aware of what symptoms to monitor for that would warrant a return to the emergency department. Discussed the plan with the patient, they demonstrate verbal understanding and agreement with our assessment and plan at this time. The documentation in this chart was dictated using [employer] dictation software. Please excuse any dictation errors. FINDINGS: Brain: Mild volume loss No hemorrhage. Unremarkable white matter. No mass effect. Cerebral ventricles: No ventriculomegaly. Paranasal sinuses: Visualized sinuses are unremarkable. No fluid levels. Mastoid air cells: Visualized mastoid air cells are well aerated. Bones/joints: Unremarkable. No acute fracture. Soft tissues: Unremarkable. IMPRESSION: No acute intracranial abnormality. Thank you for allowing us to participate in the care of your patient. Dictated and Authenticated by: William Rizvi MD 02/05/2023 12:56 AM Eastern Time ([place] & [place]) HPI General Date/Time Provider Initiated Documentation: 02/05/23 00:17 . HPI Narrative: 52-year-old male with a past medical history of migraine headaches, who presents today for evaluation of headache. Patient has had cluster headaches for the past 20+ years. He had been taking injectable Imitrex to great success, unfortunately insurance and finances no longer allow this to be feasible. Over the last week and a half he has had 3 episodes/recurrences of these headaches. He has presented to the ER for 2 of them and this is his current third visit. He states that his symptoms are identical to his normal headaches. Usually resolves with treatment, and then can come back randomly on its own. He has been prescribed a new abortive headache medication but he has not had a chance to fill this yet. He denies any fever or chills. He states that the headache came on gradually and is identical to the previous symptomatology of his other headaches. He denies vision changes, numbness tingling or weakness. States that he has not been drinking much water. He denies any falls or trauma. He is not on any blood thinners. He denies that this is the worst headache of his life, thunderclap headache, or history of aneurysms bleeds or strokes. No other complaints at this time. No other modifying factors. Related Data Home Medications Medication Instructions Recorded Confirmed methadone 10 mg tablet 165 mg PO DAILY 12/29/19 02/01/23 pantoprazole 40 mg tablet,delayed 40 mg PO BID #60 tabs 05/16/22 02/01/23 release (Protonix) gabapentin 600 mg tablet 600 mg PO TID 12/27/22 02/01/23 sertraline 100 mg tablet 100 mg PO DAILY 12/27/22 02/01/23 trazodone 100 mg tablet 100 mg HS 12/27/22 02/01/23 divalproex 500 mg tablet,extended 500 mg PO TID 02/01/23 02/01/23 release 24 hr esomeprazole magnesium 40 mg mg 02/01/23 02/01/23 capsule,delayed release quetiapine 200 mg tablet 200 mg DAILY 02/01/23 02/01/23 sumatriptan succinate 100 mg 100 mg PO DIRECTED #3 tabs 02/01/23 tablet (Imitrex) Previous Rx's Medication Instructions Recorded pantoprazole 40 mg tablet,delayed 40 mg PO BID #60 tabs 05/16/22 release (Protonix) sumatriptan succinate 100 mg 100 mg PO DIRECTED #3 tabs 02/01/23 tablet (Imitrex) Allergies Allergy/AdvReac Type Severity Reaction Status Date / Time varenicline [From Chantix] AdvReac Severe Other (See Unverified 02/01/23 15:46 Comment) General Stated Complaint: Headache KERA: 3 Review of Systems All systems reviewed & are unremarkable except as noted in HPI and below PFSH All Active Problems (Updated 02/05/23 @ 02:09 by Agapito Maynard DO) Migraine (Chronic) Headache (Acute) Medical History Migraine Surgical History History of back surgery History of knee surgery Social History Smoking/Tobacco Use Status: Current every day Tobacco Type: cigarettes Smoking risk assessment performed?: Yes Alcohol Intake: former Substance use type: former substance user, crack/cocaine and opiates Details: methadone clinic states he was using up until a couple weeks ago. Housing: house Do you feel safe at home: Yes Do you feel safe in your relationship?: Yes Exam Narrative Exam Narrative: 1.Const: Well-nourished, Well-developed, appearing stated age 2.Eyes: PERRL, no conjunctival injection, and symmetrical lids. 3.ENT: Atraumatic external nose and ears. Notably dry MM. Neck: Symmetric, trachea midline, No thyromegaly. Patient demonstrates good movement of cervical neck. There is no nuchal rigidity, no nuchal tenderness. Patient is able to flex the neck without any difficulty or significant pain. Negative Kernig's and Brudzinski sign. 4.CVS: +S1/S2, No murmurs or gallops. Peripheral pulses 2+ and equal in all extremities. Brisk capillary refill in all extremities. 5.RESP: Unlabored respiratory effort. Clear to auscultation bilaterally. No wheezes rales or rhonchi 6.GI: Soft, Nontender/Nondistended, No hepatosplenomegaly. No guarding or rebound. 7.MSK: Normocephalic/Atraumatic, Extremities w/o deformity or ttp No cyanosis or clubbing, Normal movement of all extremities 8.Skin: Warm, Dry. No rashes or lesions. 9.Neuro: technology auditor II-XII grossly intact. Sensation grossly intact, no focal neurologic deficits. All 6 cardinal planes of vision are fully intact. No evidence of rotatory or vertical nystagmus. The patient demonstrated a normal [id number], good dexterity. There was no evidence of dysdiadochokinesia. Patient was able to ambulate without difficulty. There was no wide-based gait. Romberg testing was normal. Nnmp-rt-acfv testing was normal. Sensation was intact bilaterally as well as muscle strength bilaterally for all extremities. Patient was able to verbalize butter cup with no slurring, or miss pronunciation. 10.Psych: (AAO) x3. Appropriate mood and affect Course Vital Signs Vital signs: Vital Signs Temperature 36.7 C 02/05/23 00:11 Pulse 56 L 02/05/23 00:11 Respiratory Rate 22 02/05/23 00:11 Blood Pressure 160/89 H 02/05/23 00:11 Pulse Oximetry 93 02/05/23 00:11 Temperature 36.7 C 02/05/23 00:11 Temperature Source Temporal Artery Scan 02/05/23 00:11 Pulse 56 L 02/05/23 00:11 Respiratory Rate 22 02/05/23 00:11 Blood Pressure 160/89 H 02/05/23 00:11 Pulse Oximetry 93 02/05/23 00:11 Oxygen Delivery Method Room Air 02/05/23 00:11 Oxygen Flow Rate 0 02/05/23 00:11
[2023-02-05 00:36] LABS: Lactate 1.8 mmol/L (0.6-1.4)
[2023-02-05 00:39] LABS: Abs Immature Grans 0.07 10^3/uL (0.0-0.06); Absolute Basophil Count 0.05 10^3/uL (0.0-0.2); Absolute Eosinophil Count 0.23 10^3/uL (0.0-0.7); Absolute Lymphocyte Count 2.78 10^3/uL (1.2-3.4); Absolute Monocyte Count 0.65 10^3/uL (0.1-0.8); Absolute Neutrophil Count 2.64 10^3/uL (1.2-6.7); Basophils % 0.8; Eosinophils % 3.6; HCT 41.4 % (40.0-50.0); HGB 13.5 g/dL (13.5-17.5); Immature Grans % 1.1; Lymphocytes % 43.3; MCH 30.8 pg (27.0-33.0); MCHC 32.6 % (32.0-36.0); MCV 94 fL (80-95); MPV 9.6 fL (8.0-11.0); Monocytes % 10.1; Neutrophils % 41.1; Platelet Count 239 10^3/uL (130-400); RBC 4.39 10^6/uL (4.36-5.78); RDW 14.2 % (11.8-14.1); RDW-SD 49.1 fL; WBC 6.42 10^3/uL (4.4-10.8)
[2023-02-05 00:49] LABS: ESR 6 mm/hr (0-20)
[2023-02-05 00:52] LABS: INR 0.9 (0.9-1.1); PTT Activated 22.8 sec (21.5-31.9); Prothrombin Time 9.5 sec (9.3-11.0)
--- NOTE | 2023-02-05 00:57 | DI.VRAD_ITS ---
PROCEDURE INFORMATION: Exam: CT Head Without Contrast Exam date and time: 02/05/2023 12:51 AM Age: 52 years old Clinical indication: Headache; Other: Right head pain, R/O mass TECHNIQUE: Imaging protocol: Computed tomography of the head without contrast. Radiation optimization: All CT scans at this facility use at least one of these dose optimization techniques: automated exposure control; mA and/or kV adjustment per patient size (includes targeted exams where dose is matched to clinical indication); or iterative reconstruction. COMPARISON: CT HEAD WO 01/30/2023 1:13 AM FINDINGS: Brain: Mild volume loss No hemorrhage. Unremarkable white matter. No mass effect. Cerebral ventricles: No ventriculomegaly. Paranasal sinuses: Visualized sinuses are unremarkable. No fluid levels. Mastoid air cells: Visualized mastoid air cells are well aerated. Bones/joints: Unremarkable. No acute fracture. Soft tissues: Unremarkable. IMPRESSION: No acute intracranial abnormality. Dictated and Authenticated by: William Rizvi MD. Ordering:MELVIN Altman MD
[2023-02-05 01:03] LABS: ALT 22 U/L (16-63); AST 9 U/L (15-37); Albumin 4.2 g/dL (3.4-5.0); Alkaline Phosphatase 68 U/L (46-116); Anion Gap 5.5 mmol/L (3-11); BUN 20 mg/dL (7-18); Bilirubin, Total 0.2 mg/dL (0.2-1.0); C-Reactive Protein 0.18 mg/dL (0.0-0.3); CO2 28.5 mmol/L (21.0-32.0); CREATININE 0.9 mg/dL (0.70-1.30); Calcium 9.2 mg/dL (8.5-10.1); Chloride 100 mmol/L (98-107); Estimated GFR 101.49 (mL/min/1.73m2); Glucose 109 mg/dL (74-106); Potassium 4.2 mmol/L (3.5-5.1); Sodium 134 mmol/L (136-145); VALPROIC ACID 65.4 ug/mL
[2023-02-05] MEDS: Prochlorperazine 10 MG/2 ML VIAL IVP (01:22)
[2023-02-05] MEDS: methylPREDNISolone SUCC 125 MG VIAL IVP (01:22)
[2023-02-05] MEDS: Normal Saline 1,000 ML 1000 ML IV (01:22)
[2023-02-05] MEDS: Ketorolac 15 MG/ML VIAL IVP (01:22)
[2023-02-05] MEDS: Acetaminophen 500 MG TAB 1000 MG PO (01:22)
[2023-02-05] MEDS: diphenhydrAMINE 50 MG/ML VIAL 25 MG IVP (01:22)
[2023-02-05 01:42] LABS: *AMPHETAMINES SCREEN URINE Negative (Negative); *BARBITURATES SCREEN URINE Negative (Negative); *BENZODIAZEPINES SCREEN URINE Negative (Negative); Cannabinoids THC Negative (Negative); Cocaine Screen,Urine Positive (Negative); METHADONE URINE SCREEN Positive (Negative); OPIATES URINE SCREEN Negative (Negative)
[2023-02-05 01:43] LABS: Tricyclic Antidepressants Negative (Negative)
[2023-02-05 02:03] LABS: Procalcitonin < 0.1 ng/mL
== END 2023-02-05 02:44 | disposition home or self-care (01) ==
PROVIDERS: Emergency Provider Student in an Organized Health Care Education/Training Program; PCP Nurse Practitioner Family
DX: R51.9 Headache, unspecified (principal)
CPT/HCPCS: 80053; 80307; 84145; 85652; 93005; 96361; 96374; 96375; 99284; 70450; 80164; 83605; 85025; 85610; 85730; 86140; 93010; J0780; J1200; J1885; J2930

== ENCOUNTER 2023-03-20 16:58 | Outpatient (REF) | payer MEDICARE, MEDICAID, SELFPAY ==
[2023-03-20 16:59] LABS: Abs Immature Grans 0.05 10^3/uL (0.0-0.06); Absolute Basophil Count 0.05 10^3/uL (0.0-0.2); Absolute Eosinophil Count 0.19 10^3/uL (0.0-0.7); Absolute Lymphocyte Count 2.71 10^3/uL (1.2-3.4); Absolute Monocyte Count 0.74 10^3/uL (0.1-0.8); Absolute Neutrophil Count 3.77 10^3/uL (1.2-6.7); Basophils % 0.7; Eosinophils % 2.5; HCT 38.6 % (40.0-50.0); HGB 12.5 g/dL (13.5-17.5); Immature Grans % 0.7; Lymphocytes % 36.1; MCH 29.3 pg (27.0-33.0); MCHC 32.4 % (32.0-36.0); MCV 90 fL (80-95); MPV 10.5 fL (8.0-11.0); Monocytes % 9.9; Neutrophils % 50.1; Platelet Count 175 10^3/uL (130-400); RBC 4.27 10^6/uL (4.36-5.78); RDW-SD 43.4 fL; WBC 7.51 10^3/uL (4.4-10.8)
[2023-03-20 17:39] LABS: ALT 42 U/L (16-63); AST 29 U/L (15-37); Albumin 3.3 g/dL (3.4-5.0); Alkaline Phosphatase 50 U/L (46-116); Anion Gap 7.8 mmol/L (3-11); BUN 18 mg/dL (7-18); Bilirubin, Total 0.2 mg/dL (0.2-1.0); CO2 27.2 mmol/L (21.0-32.0); CREATININE 0.9 mg/dL (0.70-1.30); Calcium 9.2 mg/dL (8.5-10.1); Chloride 104 mmol/L (98-107); Estimated GFR 101.49 (mL/min/1.73m2); Glucose 83 mg/dL (74-106); Potassium 4.3 mmol/L (3.5-5.1); Sodium 139 mmol/L (136-145); Total Protein 7.4 g/dL (6.4-8.2)
[2023-03-20 17:52] LABS: VALPROIC ACID 54.8 ug/mL
[2023-03-20 19:13] LABS: Bilirubin Negative (Negative); Blood Negative (Negative); Clarity Cloudy (Clear); Glucose Negative (Negative); Ketones Negative (Negative); Leukocyte Esterase Negative (Negative); Nitrite Negative (Negative); Specific Gravity >= 1.030 (1.005-1.025); Urobilinogen 0.2 mg/dL (Up to 0.2); pH 5.5 (5-8)
== END 2023-03-20 16:59 | disposition home or self-care (01) ==
LOC: NCHCN 16:58
PROVIDERS: PCP Nurse Practitioner Family; Visit Provider Nurse Practitioner Family
DX: F31.2 Bipolar disorder, current episode manic severe with psychotic features (principal); F41.8 Other specified anxiety disorders; R30.0 Dysuria; Z51.81 Encounter for therapeutic drug level monitoring
CPT/HCPCS: 80053; 80164; 81003; 85025

== ENCOUNTER → 2023-03-27 02:56 | Outpatient (CLI) | payer MEDICARE, MEDICAID, SELFPAY ==
[2023-03-27] MEDS: Normal Saline - Diluent 50 ML VIAL IJ ×2 (08:21→08:22)
[2023-03-27] MEDS: Omnipaque 350 MG/ML 500 ML BTL-Imaging package IJ (10:22)
--- NOTE | 2023-03-27 10:30 | DI.CT_ITS ---
Exam(s) CT ABDOMEN PELVIS W EXAM: CT ABDOMEN PELVIS W CLINICAL HISTORY: LOWER ABD PAIN R10.84 PERIUMBILICAL ABD PAIN R10.33. TECHNIQUE: Imaging Protocol: Axial computed tomography images with coronal and sagittal reformatted images were created and reviewed CONTRAST MATERIAL: Intravenous: Omnipaque 350 Contrast volume:100 ml Oral: yes / COMPARISON: CT CT ABDOMEN PELVIS W from 12/18/2022 FINDINGS: ABDOMEN: Lung Bases: Trace right pleural effusion. Liver: Mildly enlarged. Mild hepatic steatosis. No measurable mass. Gallbladder and biliary tract: No radiodense calculus or dilation. Pancreas: Normal density, no abnormal calcifications or inflammatory process. Spleen: Normal. Kidneys: Normal size, contour and axis. No radiodense stones or obstructive uropathy. No suspicious m asses seen. Adrenal glands: No masses seen. Vasculature: Abdominal aorta non-dilated. Mild atherosclerotic changes. Soft tissues: Small fatty containing inguinal hernias. PELVIS: Bladder: No gross wall thickening. No calculi.No focal mass. Bowel: No obstruction. No bowel wall thickening. Appendix normal. Large quantity of stool. Peritoneal cavity: No ascites, collection or mesenteric inflammatory response. Bones: Hardware again noted at L3-4. Reproductive organs: Within normal limits. Lymph nodes: Unremarkable. IMPRESSION:: No acute abnormality. Large quantity of stool. RADIATION DOSE DELIVERED: Total DLP DATA REPOSITORY: All CT scans at this facility are submitted to the National Radiology Data Registry (NRDR) Dose Index Registry (DIR) with the [employer] (A[employer]). RADIATION OPTIMIZATION: All CT scans at this facility use at least one of these dose optimization te chniques: automated exposure control; mA and/or kV adjustment per patient size (includes targeted exa ms where dose is matched to clinical indication); or iterative reconstruction.
== END ==
PROVIDERS: PCP Nurse Practitioner Family; Visit Provider Nurse Practitioner Family
DX: R10.33 Periumbilical pain (principal); R10.84 Generalized abdominal pain
CPT/HCPCS: 74177

== ENCOUNTER 2023-10-21 14:38 | Outpatient (REF) | payer MEDICARE, MEDICAID, SELFPAY ==
[2023-10-21 18:57] LABS: Abs Immature Grans 0.04 10^3/uL (0.0-0.06); Absolute Basophil Count 0.06 10^3/uL (0.0-0.2); Absolute Eosinophil Count 0.25 10^3/uL (0.0-0.7); Absolute Lymphocyte Count 3.07 10^3/uL (1.2-3.4); Absolute Monocyte Count 0.57 10^3/uL (0.1-0.8); Absolute Neutrophil Count 3.15 10^3/uL (1.2-6.7); Basophils % 0.8 %; Eosinophils % 3.5 %; HCT 41.3 % (40.0-50.0); HGB 13.6 g/dL (13.5-17.5); Immature Grans % 0.6 %; MCH 30.8 pg (27.0-33.0); MCHC 32.9 % (32.0-36.0); MCV 93 fL (80-95); MPV 10.6 fL (8.0-11.0); Neutrophils % 44.1 %; Platelet Count 197 10^3/uL (130-400); RBC 4.42 10^6/uL (4.36-5.78); RDW 12.8 % (11.8-14.1); RDW-SD 44.1 fL; WBC 7.14 10^3/uL (4.4-10.8)
[2023-10-21 19:12] LABS: VALPROIC ACID 26.5 ug/mL
[2023-10-21 19:19] LABS: ALT 45 U/L (16-63); AST 32 U/L (15-37); Albumin 3.5 g/dL (3.4-5.0); Alkaline Phosphatase 60 U/L (46-116); Anion Gap 8.6 mmol/L (3-11); BUN 15 mg/dL (7-18); Bilirubin, Total 0.3 mg/dL (0.2-1.0); CO2 28.4 mmol/L (21.0-32.0); CREATININE 1.1 mg/dL (0.70-1.30); Calcium 8.8 mg/dL (8.5-10.1); Chloride 107 mmol/L (98-107); Estimated GFR 79.77 (mL/min/1.73m2); Glucose 105 mg/dL (74-106); Potassium 4.5 mmol/L (3.5-5.1); Sodium 144 mmol/L (136-145); TSH 3.18 uIU/Ml (0.36-3.74); Total Protein 7.3 g/dL (6.4-8.2)
== END 2023-10-21 14:39 | disposition home or self-care (01) ==
LOC: NCHCN 14:38
PROVIDERS: PCP Nurse Practitioner Family; Visit Provider Nurse Practitioner Family
DX: F31.2 Bipolar disorder, current episode manic severe with psychotic features (principal)
CPT/HCPCS: 80053; 80164; 84439; 84443; 85025

== ENCOUNTER → 2023-12-15 01:57 | Outpatient (CLI) | payer MEDICARE, MEDICAID, SELFPAY ==
--- NOTE | 2023-12-15 | DI.CTLCSR_ITS ---
Exam(s) CT CHEST LUNG CANCER SCREEN EXAM: CT CHEST LUNG CANCER SCREEN CLINICAL HISTORY: F17.210 Nicotine dependence, cigarettes TECHNIQUE: Imaging Protocol: Axial computed tomography images with coronal and sagittal reformatted images were created and reviewed COMPARISON: CT CT NECK CHEST W from 05/09/2022 FINDINGS: Tracheobronchial tree: Patent where visualized. No bronchiectasis. Pulmonary parenchyma: Mild centrilobular emphysematous changes are present. No focal consolidating i nfiltrates. There is a stable area of scarring in the lateral aspect of the right lower lobe. No ar chitectural distortion. Lung Nodules: None. Mediastinum and Elizabeth: No dominant adenopathy or fluid collection. The esophagus is unremarkable. Thyroid gland: Unremarkable. Lymph nodes: Unremarkable. Pleura: No effusion or pneumothorax. Heart: The heart is not dilated. Coronary artery calcification is present. No pericardial effusion. Aorta: Thoracic aorta non-dilated.Atherosclerotic calcification is present. Upper abdomen: Unremarkable. Soft Tissues: Unremarkable. Bones: Within normal limits. IMPRESSION: No pulmonary nodules. Lung RADS Cat 1 - Negative: No nodules and definitely benign nodules Lung-RADS 1.0 CATEGORIES: Category 0 - Prior chest CT exam(s) being located for comparison. Category 1 - Annual screening in 12 months. No nodules or definitely benign nodules. Category 2 - Annual screening in 12 months. Benign appearance. Nodules with low likelihood of becomin g active cancer. Category 3 - 6-month follow-up. Probably benign. Short-term follow-up suggested. Nodules with low lik elihood of becoming active cancer. Category 4A - 3-month follow-up and CT/PET if >8 mm in size. Suspicious finding. Findings which requi re additional testing. Category 4B - Findings which require additional testing and tissue sampling. Suspicious finding. Category 4X - Category 3 or 4 nodules with additional features or imaging findings that increases the suspicion of malignancy. Modifier S- Potentially clinically significant finding. (Non lung cancer) RADIATION DOSE DELIVERED: 77.6mGy.cm Total DLP 77.6mGy.cmTotal DLP DATA REPOSITORY: All CT scans at this facility are submitted to the National Radiology Data Registry (NRDR) Dose Index Registry (DIR) with the [employer] (ACR). RADIATION OPTIMIZATION: All CT scans at this facility use at least one of these dose optimization te chniques: automated exposure control; mA and/or kV adjustment per patient size (includes targeted exa ms where dose is matched to clinical indication); or iterative reconstruction.
== END ==
PROVIDERS: PCP Nurse Practitioner Family; Visit Provider Nurse Practitioner Family
DX: F17.210 Nicotine dependence, cigarettes, uncomplicated (principal); Z87.891 Personal history of nicotine dependence
CPT/HCPCS: 71271

== ENCOUNTER 2024-02-04 16:22 | Outpatient (REF) | payer MEDICARE, MEDICAID, SELFPAY ==
[2024-02-04 16:18] LABS: Abs Immature Grans 0.03 10^3/uL (0.0-0.06); Absolute Basophil Count 0.06 10^3/uL (0.0-0.2); Absolute Eosinophil Count 0.15 10^3/uL (0.0-0.7); Absolute Lymphocyte Count 2.65 10^3/uL (1.2-3.4); Absolute Monocyte Count 0.44 10^3/uL (0.1-0.8); Absolute Neutrophil Count 3.84 10^3/uL (1.2-6.7); Basophils % 0.8 %; Eosinophils % 2.1 %; HCT 42.7 % (40.0-50.0); HGB 14.1 g/dL (13.5-17.5); Immature Grans % 0.4 %; MCH 31.1 pg (27.0-33.0); MCV 94 fL (80-95); MPV 10.5 fL (8.0-11.0); Monocytes % 6.1 %; Neutrophils % 53.6 %; Platelet Count 183 10^3/uL (130-400); RBC 4.54 10^6/uL (4.36-5.78); RDW 12.2 % (11.8-14.1); RDW-SD 42.4 fL; WBC 7.17 10^3/uL (4.4-10.8)
[2024-02-04 16:44] LABS: Hemoglobin A1C 5.5 % (<5.7)
[2024-02-04 17:05] LABS: ALT 43 U/L (16-63); AST 26 U/L (15-37); Albumin 3.7 g/dL (3.4-5.0); Alkaline Phosphatase 65 U/L (46-116); Anion Gap 11.4 mmol/L (3-11); BUN 9 mg/dL (7-18); Bilirubin, Total 0.38 mg/dL (0.2-1.0); CO2 24.6 mmol/L (21.0-32.0); Calcium 8.9 mg/dL (8.5-10.1); Calculated LDL 128 mg/dL (<100); Chloride 105 mmol/L (98-107); Cholesterol 216 mg/dL (<200); Estimated GFR 88.88 (mL/min/1.73m2); Glucose 152 mg/dL (74-106); HDL Cholesterol 33 mg/dL (40-60); Potassium 4.2 mmol/L (3.5-5.1); Sodium 141 mmol/L (136-145); TSH (W/Ref FT4) 2.34 uIU/mL (0.36-3.74); Total Protein 7.1 g/dL (6.4-8.2); Triglyceride 277 mg/dL (<150); Vitamin B12 492 pg/mL (193-986); Vitamin D 25 Total 19.7 ng/mL (30-100)
== END 2024-02-04 16:23 | disposition home or self-care (01) ==
LOC: LBN 16:22
PROVIDERS: PCP Nurse Practitioner Family; Visit Provider Nurse Practitioner Family
DX: Z00.00 Encounter for general adult medical examination without abnormal findings (principal)
CPT/HCPCS: 80053; 80061; 82306; 82607; 83036; 84443; 85025

== ENCOUNTER 2024-09-29 12:55 | Outpatient (CLI) | payer MEDICARE, MEDICAID, SELFPAY ==
--- NOTE | 2024-09-29 12:45 | RT.EKG_ITS ---
APPROVED REPORT Exam: Resting ECG Reason for Exam: high risk medication use Patient Location: O HR:58 bpm ECG Measurements Heart Rate 58 AXIS MS 137 P 42 QRSd 82 QRS 51 QT 424 T 62 QTc 417 Conclusion Sinus rhythm...normal P axis, V-rate 50- 99 Normal Electrocardiogram
== END 2024-09-29 12:56 | disposition home or self-care (01) ==
LOC: CARDOPNVT 12:55
PROVIDERS: PCP Nurse Practitioner Family; Visit Provider Family Medicine
DX: Z79.899 Other long term (current) drug therapy (principal)
CPT/HCPCS: 93005; 93010